=== PATIENT | male | born 1960 | race Caucasian/White ===

== ENCOUNTER 2021-11-22 12:03 | Inpatient (IN) | payer MEDICARE, OTHER, SELFPAY ==
[2021-11-22] VITALS (20 sets, daily range): BP systolic 88–123; BP diastolic 64–108; PULSE 78–126; RESP 17–25; TEMP 36.7–37.1; O2SAT 95–99
--- NOTE | ~2021-11-22 | US_ITS ---
US renal BI, US abdomen limited EXAMINATION: Limited abdomen and renal ultrasound INDICATION: Acute renal injury. Rule out hydronephrosis. PROCEDURE: Realtime High Resolution abdomen and renal ultrasound. COMPARISON: Ultrasound dated 04/25/2016 FINDINGS: Gallbladder is surgically absent. Common bile duct measures 6 mm. Liver echotexture within normal limits without focal mass. Pancreas is not well visualized. Pancrea tic tail is obscured by bowel gas. Spleen is unremarkeable. Renal echotexture is within normal limit s bilaterally without hydronephrosis, contour deforming mass or renal stone. Right kidney measures 12 .7 cm. Left kidney measures 12.5 cm. IMPRESSION: 1: Unremarkable abdominal ultrasound. Reviewed, dictated and finalized at location B. OAT SPRAYER IMPRESSION: 1: Unremarkable abdominal ultrasound.
--- NOTE | ~2021-11-22 | XR_ITS ---
XR chest 1V portable 11/24/2021 10:16 Indication: CHF follow-up Procedure: AP portable chest Comparison: Comparison to multiple prior studies sequentially, with oldest reviewed study dated 06/19. Findings: Status post median sternotomy for CABG. Cardiomegaly. Pacemaker lead position unchanged. Mi ld interstitial edema most likely versus pneumonia. Impression: 1: Cardiomegaly with probable mild interstitial edema. Pneumonia less favored. Reviewed, dictated and finalized at location A. WOOD CUTTER Impression: 1: Cardiomegaly with probable mild interstitial edema. Pneumonia less favored.
--- NOTE | ~2021-11-22 | CT_ITS ---
EXAMINATION: CT chest abdomen pelvis w con DATE: 11/23/2021 17:15 INDICATION: Abdominal pain and distention, hypotension and diaphoresis TECHNIQUE: Computed tomography (CT) of the chest, abdomen, and pelvis was performed with 100 mL Omnip aque-350 intravenous contrast. Automated exposure control and iterative reconstruction technique were employed. The dose-length product was 1986.17 mGy-cm. COMPARISON: CT chest dated 11/22/[address] abdomen and pelvis dated 05/21/2016 FINDINGS: CHEST CT: Moderate emphysema. Small right pleural effusion with dependent compressive atelectasis in the right lower lobe. Decrease in now minimal septal line thickening in the dependent right lower lobe consiste nt with improvement in now minimal residual pulmonary edema. A few scattered small calcified pulmonar y nodules and calcified left hilar and mediastinal lymph nodes consistent with old granulomatous dise ase. Heart size is normal. Atherosclerotic coronary artery disease with postoperative change of prior median sternotomy and coronary artery bypass grafting. Thoracic aorta is normal in caliber with no d issection. Bones are unremarkable. AICD along the lateral left chest wall with lead extending cephala d in the subcutaneous tissues along the left side of the sternum. ABDOMEN/PELVIS CT: Cholecystectomy clips the gallbladder fossa. Diffuse hepatic steatosis. Small amount of pneumobilia i n the left hepatic lobe and common bile duct with biliary stent at the distal common bile duct. Mild portacaval, periportal and peripancreatic lymphadenopathy with more ill-defined soft tissue density m edial to the left adrenal gland were previous there was bulky lymphadenopathy in the subcutaneous sof t tissue density 2016 consistent with likely treated metastatic disease or more likely lymphoma. Iain elate with clinical history. Comparison with any intervening outside imaging would be helpful to asse ss for any more recent interval change. There is mild haziness to the fat surrounding the duodenum wh ich could be due to duodenitis an infectious or related to peptic ulcer disease or edema related to a cute interstitial pancreatitis. Spleen and bilateral adrenal glands are normal. Kidneys appear normal with symmetric enhancement. Relatively symmetric bilateral perinephric and retroperitoneal stranding which extends into the pelvis. There is additional mild haziness to the fat surrounding the decompre ssed bladder which limits evaluation but which raises some concern for cystitis. There is prominent c olonic diverticulosis with a sigmoid predominance. There is no adjacent inflammatory change to sugges t diverticulitis. Appendix is no longer visualized and are postoperative changes along the tip the ce cum suggesting interval appendectomy. No bowel obstruction. Trace amount of perihepatic ascites. No a bscess or free intraperitoneal gas. No pathologically enlarged pelvic lymphadenopathy. Mild scattered degenerative skeletal changes. No suspicious lytic or blastic bone lesions identified. IMPRESSION: 1. Interval decrease in now minimal interstitial opacities in the dependent right lower lobe most lik duke improving mild pulmonary edema. 2. Unchanged small right pleural effusion. 3. Moderate emphysema. 4. Nonspecific stranding in the region of the duodenum/head of the pancreas with differential includi ng either duodenitis which could be infectious, inflammatory or secondary to peptic ulcer disease or acute interstitial pancreatitis and would correlate with amylase and lipase levels. Alternatively thi s along with mild peripancreatic, periportal and portacaval lymphadenopathy where there was previousl y bulky lymphadenopathy could represent residual changes of treated metastatic disease or lymphoma. C orrelate with clinical history. In the absence of any intervening imaging to establish a posttreatmen t baseline it is difficult to exclude recurrent dise
--- NOTE | ~2021-11-22 | XR_ITS ---
EXAMINATION: XR chest 1V portable DATE: 11/30/2021 05:53 INDICATION: Pulmonary edema. TECHNIQUE: A single frontal view of the chest was obtained. COMPARISON: Chest single view 11/28/2021, chest CT 11/23/2021 FINDINGS: There is a diffuse interstitial pattern in the lungs, consistent with mild pulmonary edema. No pleural effusion or pneumothorax. Cardiomegaly is noted. Median sternotomy wires and mediastinal surgical clips are seen, likely from prior coronary artery bypass grafting. There is an implanted def ibrillator in anterior abdominal wall. A left upper extremity peripherally inserted central venous ca theter (PICC) is seen with tip in the superior vena cava. IMPRESSION: 1. Mild pulmonary edema. 2. Cardiomegaly. Reviewed, dictated and finalized at location A. H POLISHER
--- NOTE | ~2021-11-22 | XR_ITS ---
EXAMINATION: XR abdomen obstructive series DATE: 11/28/2021 09:05 INDICATION: Abdominal distention TECHNIQUE: Upright and supine views of the abdomen were obtained. COMPARISON: None. FINDINGS: No dilated loops of bowel are identified. There is no free intraperitoneal gas. Surgical cl ips in the right upper quadrant are likely from prior cholecystectomy. Cardiomegaly is noted. There i s an implanted single living defibrillator of the left lower chest wall. IMPRESSION: 1. Nonobstructive bowel gas pattern. Reviewed, dictated and finalized at location A. PRESIDENT FOR INSTRUCTION
--- NOTE | ~2021-11-22 | XR_ITS ---
EXAMINATION: XR chest PICC line DATE: 11/24/2021 11:55 INDICATION: PICC line placement TECHNIQUE: frontal view of the chest was obtained. COMPARISON: Chest radiograph dated 11/24/[address] dated 11/23/2021 FINDINGS: Left upper extremity peripherally inserted central venous catheter (PICC) tip at the mid superior ve na cava. AICD projecting over the lateral left chest wall with lead extending cephalad along the left side of the sternum. Persistent mild opacities at the bilateral lung bases. No pleural effusion or pneumothorax. Cardiomeg alis. Median sternotomy wires and mediastinal surgical clips are seen, likely from prior coronary tammy ry bypass grafting. IMPRESSION: 1. Left PICC line tip at the midsuperior vena cava. 2. Mild bibasilar opacities which could represent atelectasis, mild pulmonary edema or less likely pn eumonia. 3. Cardiomegaly. Reviewed, dictated and finalized at location A. RUCTOR BUSINESS EDUCATION IMPRESSION: 1. Left PICC line tip at the midsuperior vena cava. 2. Mild bibasilar opacities which could represent atelectasis, mild pulmonary e kip or less likely pneumonia. 3. Cardiomegaly.
--- NOTE | ~2021-11-22 | CT_ITS ---
EXAMINATION: CTA chest PE protocol DATE: 11/22/2021 13:43 INDICATION: Shortness of breath, atrial fibrillation TECHNIQUE: Computed tomography angiography (CTA) of the chest was performed with 100 mL Omnipaque-350 intravenous contrast timed to evaluate the pulmonary arteries. Coronal maximum intensity projection 3D-reconstructions were created by the technologist. The dose-length product (DLP) was 1082.99 mGy-cm . Automated exposure control and iterative reconstruction technique were employed. COMPARISON: None. FINDINGS: The pulmonary arteries are well-opacified. No pulmonary embolism is identified. Respiratory motion artifact somewhat limits the examination. Cardiomegaly is noted. There is a small right pleur al effusion. There are patchy airspace opacities throughout the lungs. There is interlobular septal t hickening in the lower lung zones. No pneumothorax is identified. There is mild bilateral hilar lymph adenopathy. The gallbladder is surgically absent. Pneumobilia is noted. There is a stent the distal c ommon bile duct. There is mild thoracic spondylosis. A single lead defibrillator is implanted in the subcutaneous tissues of the left flank with its leads coursing anteriorly and ending in the subcutane ous tissues of the anterior chest just left of midline. IMPRESSION: 1. No pulmonary embolus identified, sensitivity limited by motion artifact. 2. Cardiomegaly with mild pulmonary edema. 3. Patchy airspace opacities of the lungs, likely atelectasis. 4. Small right pleural effusion. Reviewed, dictated and finalized at location A. ER INSTALLER
--- NOTE | ~2021-11-22 | XR_ITS ---
EXAMINATION: XR chest 1V portable INDICATION: Shortness of breath TECHNIQUE: Portable AP chest at 1222 hours COMPARISON: 05/21/2016 FINDINGS: There are patchy airspace opacities throughout all lung zones. There is no pleural effusion or pneumothorax. Cardiomegaly is noted. A single lead pacemaker has been inserted in the left latera l chest wall since the comparison examination. Median sternotomy wires and mediastinal surgical clips are seen, likely from prior coronary artery bypass grafting. IMPRESSION: 1. Patchy opacities throughout all lung zones, consistent with atelectasis versus pulmonary edema paty devin pneumonia. 2. Cardiomegaly. Reviewed, dictated and finalized at location A. OWS SECURITY ENGINEER IMPRESSION: 1. Patchy opacities throughout all lung zones, consistent with atelectasis vers us pulmonary edema versus pneumonia. 2. Cardiomegaly.
--- NOTE | ~2021-11-22 | XR_ITS ---
EXAMINATION: XR chest 1V portable EXAM DATE: 11/28/2021 19:06 INDICATION: Shortness of breath. TECHNIQUE: Portable AP frontal chest x-ray was obtained. Comparison is made to prior examination from 11/24/2021. FINDINGS: Left-sided PICC line in position. Cardiomegaly. Mild to moderate amount of bilateral ill-de fined edema or pneumonia. No sizable pleural effusion. No pneumothorax. Sternotomy wires. Cardiac pac emaker/AICD device. IMPRESSION: 1. Mild to moderate amount of bilateral edema or pneumonia, mild progression. 2. Cardiomegaly. Reviewed, dictated and finalized at location G. Y REMOVER
--- NOTE | 2021-11-22 12:05 | ECG_ITS ---
Measurements Intervals [facility] [place] Rate: 125 P: SC: 0 QRS: -56 QRSD: 126 T: 192 QT: 357 QTc: 515 Interpretive Statements ATRIAL FLUTTER/TACHYCARDIA WITH RAPID VENTRICULAR RESPONSE IVCD, FEATURES OF BOTH IRBBB/ILBBB LEFT ANTERIOR FASCICULAR BLOCK BORDERLINE ST-T WAVE ABNORMALITY- LAT/HIGH LAT LEADS ABNORMAL ECG Electronically Signed On 11-22-2021 12:29:32 TOLL COLLECTOR SUPERVISOR by Elmo Khoury D.O.
--- NOTE | 2021-11-22 12:23 | ED.ARRPALP ---
HPI - Arrhythmia/Palpitations General Chief Complaint: Arrhythmia/Palpitations Stated Complaint: afib/ from pcp Time Seen by Provider: 11/22/21 12:12 History of Present Illness HPI narrative: 61-year-old male presented to the emergency department for evaluation of atrial fibrillation. Patient does have a previous history of atrial fibrillation but was found to be in A. fib today. Patient reports he has felt poorly for approximately the last 5 weeks with his symptoms being chest congestion and head cold. Patient was being treated by his primary care physician for this. states over the last few days patient has continued to worsen. Patient describes his worsening symptoms as worsening exertional shortness of breath. Denies any chest pain. Prior history of ablation for his A. fib Related Data Home Medications Medication Instructions Recorded Confirmed albuterol sulfate 1 puff INHALATION Q6H 11/22/21 apixaban [Eliquis] 5 mg PO BID 11/22/21 canagliflozin [Invokana] 300 mg PO DAILY 11/22/21 carvedilol 18.75 mg PO BID 11/22/21 fenofibrate 160 mg PO DAILY 11/22/21 furosemide 20 mg PO DAILY 11/22/21 glimepiride 4 mg PO BID 11/22/21 insulin glargine U-300 conc 43 unit SUBCUT HS 11/22/21 [Toujeo SoloStar U-300 Insulin] metformin 1,000 mg PO BID 11/22/21 omeprazole 40 mg PO DAILY 11/22/21 potassium chloride 10 meq PO BID 11/22/21 pravastatin 40 mg PO DAILY 11/22/21 sacubitril-valsartan [Entresto] 1 tablet PO BID 11/22/21 Allergies Allergy/AdvReac Type Severity Reaction Status Date / Time ondansetron Allergy Severe Other Verified 12/20/19 09:30 Review of Systems Review of Systems: CONSTITUTIONAL: Denies fever, chills, or sweats. Worsening generalized fatigue and exertional shortness of breath EYES: Denies visual changes, redness, or discharge. ENT: Denies rhinorrhea, congestion, sore throat, or otalgia. CARDIOVASCULAR: Denies chest pain but does report rapid heart rate RESPIRATORY: Denies cough or dyspnea. GASTROINTESTINAL: Denies abdominal pain, nausea, vomiting, or diarrhea. GENITOURINARY: Denies dysuria or hematuria. SKIN: Denies rash or itching. MUSCULOSKELETAL: Denies back pain, joint pain, or myalgia. NEUROLOGIC: Denies headache, numbness, or weakness. [facility] Family History Family History Sibling Diabetes mellitus Cerebrovascular accident Family history of malignant neoplasm Father Family history of alcoholism Family history of primary malignant neoplasm of liver Social History Social History (System 12/20/19 @ 09:30 by Josie Riley) Smoking status: Former smoker Smoking end date: 10/06/08 Alcohol intake: current Exam Narrative: APPEARANCE: Well appearing, no pain, no distress, well-nourished. HEAD: normocephalic, atraumatic. EYES: PERRLA/EOMI, conjunctivae clear. NECK: Supple. No adenopathy, no masses. RESPIRATORY: Airway patent, respirations nonlabored. Clear to auscultation bilaterally, no rales, rhonchi, wheezing. CARDIOVASCULAR: Regular rate and rhythm without murmurs rubs or gallops. ABDOMINAL: Soft, nontender, nondistended, normal bowel sounds MUSCULOSKELETAL: Moves all extremities. Strength/ROM intact, No edema, No calf tenderness. NEURO: Alert. Cranial nerves II through XII intact. SKIN: Warm, dry. Normal Color PSYCHIATRIC: Normal affect/mood. Course Course Emergency Course: Upon arrival to the emerge department patient's heart rate was 125. Patient's blood pressure was in the 90s systolic. Patient was treated with 5 metoprolol due to the low blood pressure. Patient's rate was improved but patient still remained in A. fib. Patient did have an improvement of his blood pressures. Patient did have a significantly elevated BNP so he was treated with Lasix. Chest x-ray showed pulmonary edema. CT was ordered to rule out pulmonary embolism and confirmed pulmonary edema rather than pneumonia. Case was di
[2021-11-22] MEDS: SODIUM CHLORIDE 0.9% IV 500 ML 999 ML IV CONT (12:41)
[2021-11-22] MEDS: METOPROLOL TARTRATE INJ 5 MG/5 ML VIAL IV PUSH (12:42)
[2021-11-22 12:52] LABS: Basophils Absolute Auto 0.1 K/mm3 (0.0-0.1); Basophils Percent Auto 1.5 % (0.2-1.2); Eosinophils Absolute Auto 0.3 K/mm3 (0-0.3); Eosinophils Percent Auto 3.8 % (0-4.4); Hematocrit 51.9 % (42.0-52.0); Hemoglobin 15.4 g/dL (14.0-18.0); Immature Granulocyte Absolute 0.01 K/mm3 (0.00-0.031); Immature Granulocyte Percent A 0.1 % (0-0.5); Lymphocytes Absolute Auto 1.72 K/mm3 (0.9-3.2); Lymphocytes Percent Auto 23.6 % (18.3-44.2); Mean Corpuscular HGB Conc 29.7 g/dl (32-36); Mean Corpuscular Hemoglobin 21.9 pg (26-34); Mean Corpuscular Volume 73.8 fl (80-100); Mean Platelet Volume 9.1 fl (7.4-10.4); Monocytes Absolute Auto 0.7 K/mm3 (0.1-0.6); Monocytes Percent Auto 8.9 % (2.6-8.5); Neutrophils Absolute Auto 4.5 K/mm3 (1.3-6.7); Neutrophils Percent Auto 62.1 % (45.5-73.1); Platelet Count Result 292 k/mm3 (150-375); Red Blood Count 7.03 M/mm3 (4.6-6.20); Red Cell Distribution Width 20.5 % (11.5-14.5); White Blood Count 7.3 K/mm3 (4.5-10.0)
[2021-11-22 12:56] LABS: Add Urine Microscopic? YES; Appearance Urine Clear (Clear); Bilirubin Urine Negative (Negative); Blood Urine Negative (Negative); Color Urine Straw (Yellow); Glucose Urine UA 3+ mg/dL (Negative); Ketones Urine Negative (Negative); Leukocyte Esterase Ur Negative LEU/UL (Negative); Mucus Urine Rare /lpf; Nitrate Urine Negative (Negative); Protein Urine 1+ mg/dL (Negative); RBC Urine 0-2 /hpf (0-2); Specific Grav Ur 1.009 (1.001-1.035); Urobilinogen Urine Negative mg/dL (<2.0); WBC Urine 0-3 /hpf
[2021-11-22 13:06] LABS: Partial Thromboplastin Time 32.4 SECONDS (22.3-36.8)
[2021-11-22 13:08] LABS: Alanine Aminotransferase 25 U/L (4-50); Albumin Level 4.6 g/dL (3.5-5.1); Alkaline Phosphatase 39 U/L (38-126); Anion Gap 15 mmol/L (8-16); Aspartate Amino Transferase 23 U/L (17-59); Blood Urea Nitrogen 28 mg/dL (9-20); Carbon Dioxide 22 mmol/L (22-30); Chloride 102 mmol/L (98-107); Estimated CRCL calculation 63 ml/min; Estimated Glomerular Filt Rate 51; Potassium 4.4 mmol/L (3.4-5.0); Sodium 139 mmol/L (137-145)
[2021-11-22 13:12] LABS: INR 1.4; Prothrombin Time 16.2 Seconds (11.1-14.7)
[2021-11-22 13:17] LABS: NT Pro B Type Natriuretic Pept 6460 pg/mL (5-100); Troponin I < 0.012 ng/mL (0.000-0.034)
[2021-11-22] MEDS: FUROSEMIDE INJ 40 MG/4 ML VIAL IV PUSH ×2 (13:43→20:40)
--- NOTE | 2021-11-22 13:52 | ECG_ITS ---
Measurements Intervals [place] Rate: 89 P: AL: 0 QRS: -51 QRSD: 129 T: 205 QT: 407 QTc: 498 Interpretive Statements ATRIAL FLUTTER/TACHYCARDIA RIGHT BUNDLE BRANCH BLOCK LEFT ANTERIOR FASCICULAR BLOCK ABNORMAL ECG Electronically Signed On 11-22-2021 15:00:51 SOD STRIPPER by Elmo Khoury D.O.
[2021-11-22 14:09] LABS: Calcium 9.5 mg/dL (8.4-10.2); Glucose 109 mg/dL (65-110)
[2021-11-22 14:28] LABS: SARS-CoV-2 RNA PCR Negative
--- NOTE | 2021-11-22 14:39 | PC.NURSE ---
Patient stated that he was not feeling well and felt like his blood sugar was low . He was cool and clammy. POC blood glucose obtained with a result of 72. Patient given two cups of orange juice.
[2021-11-22 14:43] LABS: Glucose Point of Care 72 mg/dl (65-105)
[2021-11-22 16:04] LABS: Troponin I < 0.012 ng/mL (0.000-0.034)
--- NOTE | 2021-11-22 16:52 | PC.NURSE ---
This patient, Ronal Spears, was admitted to [facility]. Recieved report from ED RN. Patient/family oriented to hospital policies and general routines including ID bracelet, bed and alarms, visiting hours, pain management, procedures, bathroom and other care routines, personal items, smoking policy, room service/diet, and visiting hours. Information on how to activate the Rapid Response Team has been discussed. Patient/Family are encouraged to report perceived risks to care and to ask questions if they do not understand what they are told or what they should do.
[2021-11-22 16:54] LABS: Glucose Point of Care 107 mg/dl (65-105)
[2021-11-22 19:01] LABS: Troponin I < 0.012 ng/mL (0.000-0.034)
[2021-11-22 21:06] LABS: Glucose Point of Care 107 mg/dl (65-105)
--- NOTE | 2021-11-22 21:14 | PM.IMHP ---
H&P: HPI History of Present Illness Date/Time: 11/22/21 21:14 Chief Complaint: Shortness of breath Narrative: This is a 61-year-old male with past medical history significant for atrial fibrillation, anticoagulated rate controlled, type 2 diabetes mellitus, dyslipidemia, systolic congestive heart failure, coronary artery disease status post coronary artery bypass graft in 2007 due to LAD disease, ventricular tachycardia arrest AICD in place, patient also was diagnosed 3 years ago with cancer and has a stent placed in the bile duct that has been exchanged several times. Patient presents to the emergency room with complaints of shortness of breath overall not feeling well for the last month or so was having symptoms of cold and was treated for these however did not improve and decided to come today to visit his primary care physician and patient could not walk from the parking lot due to extreme shortness of breath, patient denies any chest pain, palpitations, PND, orthopnea, leg swelling, abdominal pain, nausea vomiting or diarrhea, he has been feeling dizzy. In emergency room patient was found to have atrial fibrillation overall preliminary workup has been essentially nonrevealing creatinine was 1.4. Brain natriuretic peptide was above 6000. Patient is been admitted for further evaluation, management and treatment. Review of Systems Review of Systems: Shortness of breath, decreased stamina, fatigue, dizziness. Constitutional: Constitutional: Denies chills, Reports fatigue, Denies fever(s), Reports lethargy, Denies malaise, Denies night sweats and Denies weakness Eyes: Eyes: Denies change in vision ENT: Denies dysphagia, Denies vertigo, Reports dizziness, Denies nasal congestion, Denies nasal discharge, Denies nasal obstruction and Denies odynophagia Cardiovascular: Cardiovascular: Denies chest pain, Denies pedal edema, Denies irregular heart rhythm, Denies claudication, Denies leg edema, Reports lightheadedness, Denies radiating jaw, neck or arm pain, Denies palpitations, Reports dyspnea, Reports dyspnea on exertion and Reports orthopnea Respiratory: Respiratory: Denies cough Gastrointestinal: Gastrointestinal: Denies abdominal pain, Denies dyspepsia, Denies heartburn, Denies diarrhea, Denies nausea and Denies vomiting Genitourinary: Genitourinary: Denies dysuria Musculoskeletal: Musculoskeletal: Denies arthralgias and Denies joint swelling Integumentary/Breasts: Skin/Breast: Denies rash Neurologic: Denies focal weakness and Denies Sensory deficit (Neuro) Psychiatric: Psychiatric: Reports no additional psychiatric complaints and Reports as per HPI Endocrine: Endocrine: Reports no additional endocrine complaints and Reports as per HPI Hematologic/Lymphatic: Hematologic/Lymphatic: Reports no additional hematologic/lymphatic complaints and Reports as per HPI Allergic/Immunologic: Allergic/Immunologic: Reports no additional allergic/immunologic complaints and Reports as per HPI [facility] Family History Family History Sibling Diabetes mellitus Cerebrovascular accident Family history of malignant neoplasm Father Family history of alcoholism Family history of primary malignant neoplasm of liver Social History Social History (System 12/20/19 @ 09:30 by Josie Riley) Smoking status: Former smoker Smoking end date: 10/06/08 Alcohol intake: current Meds Home Medications and Allergies Home Medications Medication Instructions Recorded Confirmed Type albuterol sulfate 1 puff INHALATION Q6H 11/22/21 11/22/21 History apixaban [Eliquis] 5 mg PO BID 11/22/21 11/22/21 History canagliflozin [Invokana] 300 mg PO DAILY 11/22/21 11/22/21 History carvedilol 18.75 mg PO BID 11/22/21 11/22/21 History fenofibrate 160 mg PO DAILY 11/22/21 11/22/21 History furosemide 20 mg PO BID 11/22/21 11/22/21 History glimepiride 4 mg PO BID 11/22/21 History insulin glargine U-300 conc
[2021-11-22] MEDS: SACUBITRIL/VALSARTAN 49-51 MG TABLET 1 TABLET PO (22:44)
[2021-11-22] MEDS: carvediloL 12.5 MG TABLET PO (22:44)
[2021-11-22] MEDS: carvediloL 6.25 MG TABLET PO (22:44)
[2021-11-22] MEDS: APIXABAN 5 MG TABLET PO (22:45)
[2021-11-22 23:38] LABS: Glucose Point of Care 73 mg/dl (65-105)
[2021-11-23] VITALS (24 sets, daily range): BP systolic 71–106; BP diastolic 55–78; PULSE 72–130; RESP 14–22; TEMP 36.2–36.8; O2SAT 90–97
--- NOTE | 2021-11-23 | ECHO_ITS ---
Patient Info Name: Ronal Spears Age: 61 years : 1960 Gender: Male Ht: 73 in Wt: 234 lbs BSA: 2.36 m2 HR: 77 bpm BP: 94 / 56 mmHg Heart Rhythm: Atrial Flutter Technical Quality: Fair Exam Date: 11/23/2021 7:27 AM Exam Location: [facility] Patient Status: Inpatient Admit Date: 11/22/2021 Staff Ordering Physician: Garfield Clemente MD Outreach Clinician: Jyoti Son RDCS Attending Provider: Teofilo Garnett MD Referring Physician: Bryn ELISE; Exam Type: CA echo dop color flow w con Study Info Indications - sob Complete two-dimensional, color flow and Doppler transthoracic echocardiogram is performed. Summary 1. Complete two-dimensional, color flow and Doppler transthoracic echocardiogram is performed. 2. Left ventricular chamber dimension is mildly enlarged. 3. Left ventricular systolic function is moderately reduced, estimated at 30-35% with severe hypokinesis of the apex, anteroseptal, and anterior burnham.. 4. There is no increased left ventricular wall thickness. 5. Left ventricular septal wall motion is abnormal with septal motion related to bundle branch block. 6. The left ventricular diastolic function is indeterminate. 7. There is no thrombus visualized in the left ventricle seen with definity contrast enhancement. 8. Echogenic structure located near the RV apex most likely calcified moderator band. 9. Right ventricular chamber dimension is moderately enlarged. 10. Right ventricular systolic function is reduced. 11. There is mild tricuspid valve regurgitation. 12. Mild pulmonary hypertension, estimated pulmonary arterial systolic pressure is 41 mmHg. 13. There is mild aortic valve stenosis with a peak velocity of 145.06 cm/s, mean gradient of 2 mmHg, and aortic valve area of 1.40 cm2. Left Ventricle Left ventricular chamber dimension is mildly enlarged. Left ventricular systolic function is moderately reduced, estimated at 30-35% with severe hypokinesis of the apex, anteroseptal, and anterior burnham.. There is no increased left ventricular wall thickness. Left ventricular septal wall motion is abnormal with septal motion related to bundle branch block. The left ventricular diastolic function is indeterminate. There is no thrombus visualized in the left ventricle seen with definity contrast enhancement. Right Ventricle Right ventricular chamber dimension is moderately enlarged. Right ventricular systolic function is reduced. Echogenic structure located near the RV apex most likely calcified moderator band. Left Atria Left atrial chamber dimension is moderately enlarged. Right Atria Right atrial chamber dimension is moderately enlarged. Aortic Valve The aortic valve is not well visualized. There is mild aortic valve stenosis with a peak velocity of 145.06 cm/s, mean gradient of 2 mmHg, and aortic valve area of 1.40 cm2. There is no aortic valve regurgitation. There is mild aortic valve calcification. Pulmonic Valve The pulmonic valve is not well visualized. There is trace pulmonic regurgitation. Mitral Valve The mitral valve has normal leaflets. There is mild mitral valve regurgitation. There is mild mitral valve calcification. Tricuspid Valve The tricuspid valve leaflets are normal. There is mild tricuspid valve regurgitation. Mild pulmonary hypertension, estimated pulmonary arterial systolic pressure is 41 mmHg. Pericardium/Pleural The pericardium appears normal. There is no pericardial effusion. Inferior
--- NOTE | 2021-11-23 00:45 | PC.NURSE ---
23:38 Patient's BS getting low, and patient comlaining of diaphoresis. Patient given juice, and bedtime snack. Will continue to monitor.
[2021-11-23] MEDS: ALBUTEROL SULFATE (*SP) AEROSOL 1 PUFF INHALATION ×4 (03:35→20:29)
[2021-11-23] MEDS: PERFLUTREN LIPID MICROSPHERES 1.5 ML VIAL DILUTED TO 10 ML TOTAL VOLUME IV PUSH (08:19)
--- NOTE | 2021-11-23 08:19 | IVDEFINITY ---
Prior to administration of IV Definity the patient was educated on the risks and benefits of the imaging enhancing agent including potential adverse side effects. The patient verbalized understanding. Allergies were verified. No exclusion criteria were identified and at least one of the following inclusion criteria were met: 1) physician request, 2) patient technically difficult to image (per the [place] [employer] guidelines of two or more segments not discernable within the apical view), or 3) questionable left ventricular function. ?
[2021-11-23] MEDS: carvediloL 6.25 MG TABLET PO (08:46)
[2021-11-23] MEDS: SACUBITRIL/VALSARTAN 49-51 MG TABLET 1 TABLET PO (08:47)
[2021-11-23] MEDS: carvediloL 12.5 MG TABLET PO (08:47)
[2021-11-23] MEDS: PRAVASTATIN SODIUM 20 MG TABLET 40 MG PO (08:48)
[2021-11-23] MEDS: FENOFIBRATE 160 MG TABLET PO (08:48)
[2021-11-23] MEDS: APIXABAN 5 MG TABLET PO ×2 (08:48→20:08)
[2021-11-23] MEDS: POTASSIUM CHLORIDE 10 MEQ TABLET.ER PO (08:48)
[2021-11-23] MEDS: FUROSEMIDE INJ 40 MG/4 ML VIAL IV PUSH (08:49)
[2021-11-23] MEDS: PANTOPRAZOLE 40 MG TABLET PO ×2 (08:49→20:08)
[2021-11-23 08:52] LABS: Glucose Point of Care 99 mg/dl (65-105)
--- NOTE | 2021-11-23 09:21 | PM.CNCAR ---
Assessment and Plan Additional Plan This is a 61-year-old man with well described and outlined ischemic cardiomyopathy as mentioned above. He is symptomaticaly decompensated I believe because of the development of sustained atrial flutter. He will be continued on his appropriate heart failure regimen and I am going to start him on amiodarone intravenously an attempt at restoring sinus rhythm. The patient hopefully will convert to sinus rhythm with amiodarone if he does not I will consider electrical cardioversion early next week. The patient has need for chronic biliary stents because of a bile duct stenosis. A he happens to have a procedure scheduled as an outpatient to have this evaluated and potentially replaced next week at [facility]. Obviously that will have to get delayed since that procedure requires interruption of anticoagulation. I will notify and discuss this situation with his coutierier at [facility] as well. Roberto Carlos Washington MD [facility] History of Present Illness History of Present Illness Consult date/time: Date of service: 11/23/21 09:21 Reason For Visit: a fib with rvr,chf Narrative: This is a pleasant 61-year-old man who I see in the office because of coronary disease and a significant ischemic cardiomyopathy. He was hospitalized after being seen in my office yesterday by the nurse practitioner because of atrial flutter/RVR and hypotension. The patient says that he has been feeling poorly with significant worsening in his baseline FOURNIER and severe weakness with only modest activity for the last 5-7 days. When he was seen in the office yesterday he was feeling poorly his blood pressure was about 80 systolic and he was extremely weak and a bit diaphoretic in appearance. He was seen in the emergency room and admitted to the hospital for further evaluation and care. He does not have any other complaints this morning. The patient has a history of coronary artery disease for many years. He was hospitalized at [place] and became my patient I believe back in about 2018 when he experienced a discharge from his defibrillator. He was brought to the cardiac cathode builder for evaluation of his coronary disease in October of 2017. He was found to have total proximal occlusion of the LAD as well as of the circumflex after 1 very small marginal branch. The vein graft to his circumflex was nicely patent as was the DEL ANGEL graft to his LAD. His right coronary artery was not significantly diseased and his ejection fraction was about 30%. He was treated medically and did relatively well. He did see his coutierier, Dr. Vaughn at the [facility] lab where he underwent a VT ablation and following that had received any shocks. Before that he was receiving sotalol for antiarrhythmic therapy. I saw the patient myself in August of 2021 at which time he had some mild chronic FOURNIER but no other new symptoms or concerns. His electrocardiogram now shows typical atrial flutter. When he was admitted he was conducting two-to-one with slowing of his AV node 1 can clearly see typical flutter waves. Explained to the patient that high likelihood that persistent atrial flutter is the reason for his symptomatic decompensation in the recent days. He is on a very good heart failure regimen including carvedilol, 18.75 mg twice daily, Entresto 49/51 as well as furosemide. He remains systemically anticoagulated with apixaban. Review of Systems Constitutional: Constitutional: Reports lethargy and Reports weakness Eyes: Eyes: Reports no additional eye complaints ENT: Reports system reviewed and no additional complaints, except as documented Cardiovascular: Cardiovascular: Reports as per HPI Respiratory: Respiratory: Reports dyspnea on exertion Gastrointestinal: Gastrointestinal: Reports no additional gastrointestinal complaints Genitourinary: Genitourinary: Reports no additional male genitourinary complaints Musculoskeletal: Musculoskeletal: Reports no additio
[2021-11-23] MEDS: AMIODARONE 360 MG/D5W 200 ML 360 MG/200 ML BAG 33.33 MG IV CONT (09:35)
[2021-11-23] MEDS: AMIODARONE 150 MG/D5W 100 ML 150 MG/100 ML BAG 600 MG IV CONT (09:36)
[2021-11-23 10:08] LABS: Hematocrit 49.2 % (42.0-52.0); Hemoglobin 14.5 g/dL (14.0-18.0); Mean Corpuscular HGB Conc 29.5 g/dl (32-36); Mean Corpuscular Hemoglobin 21.5 pg (26-34); Mean Platelet Volume 8.9 fl (7.4-10.4); Platelet Count Result 326 k/mm3 (150-375); Red Blood Count 6.74 M/mm3 (4.6-6.20); Red Cell Distribution Width 20.2 % (11.5-14.5); White Blood Count 6.3 K/mm3 (4.5-10.0)
[2021-11-23 10:20] LABS: Hemoglobin A1C 7.7 % (<5.7)
[2021-11-23 10:22] LABS: Anion Gap 12 mmol/L (8-16); Blood Urea Nitrogen 27 mg/dL (9-20); Calcium 8.7 mg/dL (8.4-10.2); Carbon Dioxide 23 mmol/L (22-30); Chloride 100 mmol/L (98-107); Estimated CRCL calculation 67 ml/min; Estimated Glomerular Filt Rate 56; Glucose 271 mg/dL (65-110); Magnesium 2.1 mg/dL (1.6-2.3); Potassium 4.1 mmol/L (3.4-5.0); Sodium 135 mmol/L (137-145)
[2021-11-23 10:41] LABS: Iron 48 ug/dL (49-181)
[2021-11-23 10:51] LABS: Percent Iron Saturation 10 % (20-50)
[2021-11-23 12:06] LABS: Glucose Point of Care 258 mg/dl (65-105)
--- NOTE | 2021-11-23 13:54 | PM.IMPN ---
Progress Note: A&P Assessment and Plan (1) Systolic heart failure, ACC/AHA stage D: Code(s): I50.20 - Unspecified systolic (congestive) heart failure Status: Acute Assessment and Plan: Acute on chronic systolic congestive Heart failure The patient is a 61-year-old man with a history of CAD status post CABG in 2007, ischemic cardiomyopathy with a defibrillator in place after going into a ventricular tachycardia arrest in 2018, atrial fibrillation in the past status post ablation and on Eliquis, cancer and multiple procedures for biliary duct stent placement and exchanges over the last 5 years and goes to [facility] in currently states he is in remission, who presented to the emergency room from his educational psychologist's office with concerns of hypotension, decompensated systolic congestive heart failure with shortness of breath with exertion and being in atrial fibrillation with rapid ventricular response. Patient states he has had intermittent dyspnea with exertion, orthopnea, abdominal distention and firmness over the last few weeks. He came to his educational psychologist's office for a evaluation as well as cardiac clearance because he supposed to have a biliary stent replaced on Friday. [facility] office was concerned and sent him to the ER for further evaluation. Initial vitals showed low blood pressure 94/79, tachycardic heart rate 126 beats per minute, increased respiratory rate at 21, afebrile, 99% on room air. Initial labs showed normal white blood cell count, normal H&H with a low MCV at 73. Normal differential. Normal INR. Creatinine 1.4, BUN 28, normal LFTs, normal electrolytes, negative troponin x3. Elevated BNP at 6400. Urinalysis shows 1+ protein and 3+ glucose. Negative COVID PCR. Chest x-ray showed Patchy opacities throughout all lung zones, consistent with atelectasis versus pulmonary edema versus pneumonia.Cardiomegaly. CTA Chest was completed showing No pulmonary embolus identified, sensitivity limited by motion artifact. Cardiomegaly with mild pulmonary edema. Patchy airspace opacities of the lungs, likely atelectasis. Small right pleural effusion. He was admitted into the hospital with acute decompensated systolic congestive heart failure, atrial fibrillation with rapid ventricular response and started on IV Lasix and amiodarone drip with a cardiology consultation. Patient was started on a fluid restriction at 1500 cc per day IV Lasix 40 mg b.i.d. Strict intake and output Echocardiogram pending Cardiology was consulted and recommends continuing diuresis Continue monitoring. Appreciate cardiology's input. (2) Atrial fibrillation with RVR: Code(s): I48.91 - Unspecified atrial fibrillation Status: Acute Assessment and Plan: Cardiology believes he is in the sustained atrial flutter at this time. Cardiology recommends continuing IV amiodarone drip. He hopes that amiodarone will convert him back to normal sinus rhythm and if he remains in atrial fibrillation/flutter then they will plan on a cardioversion early next week. Continue monitoring. (3) Coronary artery disease involving autologous artery coronary bypass graft: Code(s): I25.810 - Atherosclerosis of coronary artery bypass graft(s) without angina pectoris Status: Acute Assessment and Plan: Patient had bypass back in 2007 due to a LAD disease Patient has some chest pain prior to hospitalization but has not had any more since then. His troponins were negative x3 on arrival. Continue home meds (4) Type 2 diabetes mellitus: Code(s): E11.9 - Type 2 diabetes mellitus without complications Status: Acute Assessment and Plan: Patient's hemoglobin A1c is 7.7%. Will hold his oral medications at this time and continue his insulin but decrease it from 43 Units HS to 30
[2021-11-23] MEDS: SODIUM CHLORIDE 0.9% IV 500 ML IV CONT (14:36)
[2021-11-23 14:54] LABS: Glucose Point of Care 275 mg/dl (65-105)
[2021-11-23] MEDS: AMIODARONE 360 MG/D5W 200 ML 360 MG/200 ML BAG 16.67 MG IV CONT (15:20)
[2021-11-23 18:13] LABS: Glucose Point of Care 200 mg/dl (65-105)
--- NOTE | 2021-11-23 18:16 | ECG_ITS ---
Measurements Intervals [place] Rate: 96 P: [place]: 0 QRS: -58 QRSD: 122 T: -81 QT: 416 QTc: 527 Interpretive Statements ATRIAL FLUTTER/TACHYCARDIA RIGHT BUNDLE BRANCH BLOCK LEFT ANTERIOR FASCICULAR BLOCK CANNOT RULE OUT SEPTAL INFARCT, AGE INDETERMINATE BASELINE ARTIFACT- I, II, III, AVR, AVL, AVF, V1-V6 ABNORMAL ECG Electronically Signed On 11-23-2021 18:37:47 CARTRIDGE FILLER by Elmo Khoury D.O.
[2021-11-23 18:42] LABS: Hemoglobin 14.5 g/dL (14.0-18.0); Mean Corpuscular HGB Conc 30.2 g/dl (32-36); Mean Corpuscular Hemoglobin 21.9 pg (26-34); Mean Corpuscular Volume 72.6 fl (80-100); Platelet Count Result 313 k/mm3 (150-375); Red Blood Count 6.61 M/mm3 (4.6-6.20); Red Cell Distribution Width 20.3 % (11.5-14.5)
[2021-11-23 19:00] LABS: Alanine Aminotransferase 21 U/L (4-50); Albumin Level 4.3 g/dL (3.5-5.1); Alkaline Phosphatase 37 U/L (38-126); Anion Gap 13 mmol/L (8-16); Aspartate Amino Transferase 23 U/L (17-59); Bilirubin,Total 0.6 mg/dL (0.2-1.3); Blood Urea Nitrogen 34 mg/dL (9-20); Calcium 8.6 mg/dL (8.4-10.2); Carbon Dioxide 23 mmol/L (22-30); Chloride 96 mmol/L (98-107); Estimated CRCL calculation 42 ml/min; Estimated Glomerular Filt Rate 32; Glucose 214 mg/dL (65-110); Potassium 4.9 mmol/L (3.4-5.0); Sodium 132 mmol/L (137-145)
[2021-11-23] MEDS: DOPamine 400 MG/D5W 250 ML 400 MG/250 ML BAG 19.82 MG IV CONT ×2 (19:04)
[2021-11-23] MEDS: INSULIN GLARGINE (*BKC) 100 UNITS/ML 30 UNITS SUB-Q (20:08)
[2021-11-23 20:14] LABS: Glucose Point of Care 207 mg/dl (65-105)
[2021-11-23] MEDS: ACETAMINOPHEN 325 MG TABLET 650 MG PO (22:52)
[2021-11-24] VITALS (24 sets, daily range): BP systolic 85–107; BP diastolic 59–82; PULSE 90–117; RESP 16–24; TEMP 36.3–36.6; O2SAT 91–100
[2021-11-24] MEDS: ALBUTEROL SULFATE (*SP) AEROSOL 1 PUFF INHALATION ×4 (02:37→19:43)
[2021-11-24] MEDS: AMIODARONE 360 MG/D5W 200 ML 360 MG/200 ML BAG 16.67 MG IV CONT ×2 (03:03→13:50)
[2021-11-24 04:20] LABS: Hematocrit 46.7 % (42.0-52.0); Hemoglobin 14.1 g/dL (14.0-18.0); Mean Corpuscular HGB Conc 30.2 g/dl (32-36); Mean Corpuscular Hemoglobin 21.9 pg (26-34); Mean Corpuscular Volume 72.5 fl (80-100); Mean Platelet Volume 8.8 fl (7.4-10.4); Platelet Count Result 275 k/mm3 (150-375); Red Blood Count 6.44 M/mm3 (4.6-6.20); Red Cell Distribution Width 19.9 % (11.5-14.5); White Blood Count 8.7 K/mm3 (4.5-10.0)
[2021-11-24 04:31] LABS: Alanine Aminotransferase 21 U/L (4-50); Albumin Level 4.1 g/dL (3.5-5.1); Alkaline Phosphatase 37 U/L (38-126); Anion Gap 10 mmol/L (8-16); Aspartate Amino Transferase 23 U/L (17-59); Bilirubin,Total 0.7 mg/dL (0.2-1.3); Blood Urea Nitrogen 34 mg/dL (9-20); Calcium 8.6 mg/dL (8.4-10.2); Carbon Dioxide 26 mmol/L (22-30); Chloride 99 mmol/L (98-107); Estimated CRCL calculation 52 ml/min; Estimated Glomerular Filt Rate 41; Glucose 98 mg/dL (65-110); Magnesium 2.2 mg/dL (1.6-2.3); Potassium 3.8 mmol/L (3.4-5.0); Sodium 135 mmol/L (137-145)
[2021-11-24 08:42] LABS: Glucose Point of Care 101 mg/dl (65-105)
[2021-11-24] MEDS: FERROUS SULFATE 324 MG TABLET PO ×2 (08:46→18:25)
[2021-11-24] MEDS: APIXABAN 5 MG TABLET PO ×2 (08:47→21:21)
[2021-11-24] MEDS: FENOFIBRATE 160 MG TABLET PO (08:47)
[2021-11-24] MEDS: PANTOPRAZOLE 40 MG TABLET PO ×2 (08:47→21:21)
[2021-11-24] MEDS: PRAVASTATIN SODIUM 20 MG TABLET 40 MG PO (08:47)
[2021-11-24] MEDS: DOPamine 400 MG/D5W 250 ML 400 MG/250 ML BAG 19.82 MG IV CONT (09:01)
--- NOTE | 2021-11-24 09:11 | PM.PNCARD ---
Progress Note: A&P Assessment and Plan (1) Atrial fibrillation with RVR: Code(s): I48.91 - Unspecified atrial fibrillation Status: Acute Assessment and Plan: Still on amiodarone. Appears to be in atrial fibrillation at this point. EKG now. On anticoagulation. If he does not convert with amiodarone, will need electrical cardioversion. (2) Coronary artery disease involving autologous artery coronary bypass graft: Code(s): I25.810 - Atherosclerosis of coronary artery bypass graft(s) without angina pectoris Status: Acute Assessment and Plan: Continue statin. Carvedilol and Entresto on hold because of hypotension. (3) Systolic heart failure, ACC/AHA stage D: Code(s): I50.20 - Unspecified systolic (congestive) heart failure Status: Acute Assessment and Plan: Acute on chronic systolic heart failure. Decompensated. On dopamine at this point. Resume standard outpatient regimen when able. (4) Hypotension: Code(s): I95.9 - Hypotension, unspecified Status: Acute Assessment and Plan: Continue supportive care with dopamine. BP/CHF regimen on hold Subjective Date/time seen: 11/24/21 09:11 Interval history: This is a pleasant 61-year-old man who sees Dr. Washington in the office because of coronary disease and a significant ischemic cardiomyopathy. He was hospitalized after being seen in my office yesterday by the nurse practitioner because of atrial flutter/RVR and hypotension. Date of service 11/24/2021: Low chest pain. Still short of breath. Feels like his blood sugars is low. Overall still feels poorly on amiodarone and dopamine Review of Systems Review of Systems: All systems reviewed & are unremarkable except as noted in HPI and below Constitutional: Constitutional: Reports lethargy and Reports weakness Eyes: Eyes: Reports no additional eye complaints and Denies blurry vision ENT: Reports system reviewed and no additional complaints, except as documented and Reports Normal hearing present Cardiovascular: Cardiovascular: Reports as per HPI, Denies chest pain and Reports dyspnea on exertion Respiratory: Respiratory: Reports dyspnea on exertion Gastrointestinal: Gastrointestinal: Reports no additional gastrointestinal complaints and Denies abdominal pain Genitourinary: Genitourinary: Reports no additional male genitourinary complaints Musculoskeletal: Musculoskeletal: Reports no additional musculoskeletal complaints Integumentary/Breasts: Skin/Breast: Reports system reviewed and no additional complaints, except as docu Neurologic: Denies headache(s) and Reports weakness Psychiatric: Psychiatric: Denies anxiety Endocrine: Endocrine: Reports no additional endocrine complaints Hematologic/Lymphatic: Hematologic/Lymphatic: Reports no additional hematologic/lymphatic complaints Allergic/Immunologic: Allergic/Immunologic: Reports no additional allergic/immunologic complaints Exam Const: General: comfortable and no acute distress Other: Pleasant gentleman seated in bed in the chest [facility] head of bed elevated about 45? no distress currently HENMT: Mouth: Yes moist mucous membranes Eyes: Sclera: sclerae normal and scleral abnormality Neck: Neck: supple Carotids: bruit Other: No obvious venous distention Resp: Effort & Inspection: normal respiratory effort Other: Breath sounds somewhat diminished at the bases no audible rales rhonchi or wheezing Cardio: Rhythm: abnormal rhythm irregularly irregular GI: Auscultation: normal bowel sounds Skin: General skin exam: normal color Neuro: Cognition (Neuro): normal cognition Extrem: Other: Trivial pretibial edema Objective Data Vital Signs Vital Signs: Vital Signs - 24 hr 11/23/21 09:18 11/23/21 09:31 11/23/21 09:35 Temperature Pulse Rate 130 H 130 H 108 H Respiratory Rate 22 H Blood Pressure 106/72 Pulse Oximetry 11/23/21 09:36 11/23/21 10:00 11/23/21 1
--- NOTE | 2021-11-24 09:18 | ECG_ITS ---
Measurements Intervals [place] Rate: 115 P: [place]: 0 QRS: -50 QRSD: 122 T: 61 QT: 360 QTc: 499 Interpretive Statements ATRIAL FLUTTER/TACHYCARDIA WITH RAPID VENTRICULAR RESPONSE LEFT AXIS DEVIATION LEFT BUNDLE BRANCH BLOCK BASELINE ARTIFACT- I, III, AVR, AVL, AVF ABNORMAL ECG Electronically Signed On 11-24-2021 10:36:54 CONTROL CLERK AUDITING by Elmo Khoury D.O.
--- NOTE | 2021-11-24 09:44 | WPDCNINT ---
Assessment and Plan Assessment and plan (1) Cardiogenic shock: Code(s): R57.0 - Cardiogenic shock Status: Acute Assessment and Plan: patient has severe ischemic cardiomyopathy with LVEF of 30% with severe hypokinesia of apex anterior septal and anterior wall, RV is also dilated, by pulmonary hypertension and mild aortic stenosis. his congestive heart failure got decompensated likely secondary to AFib with RVR continue amiodarone infusion patient appears to have converted to sinus rhythm he is currently on low-dose dopamine for ionotropic and vasopressor affect hold diuretics as patient does not appear to be any significant volume overload check chest x-ray and BNP he is anticoagulated with Eliquis hold Coreg and Entresto due to shock continue statin and fenofibrate obtain PICC line for central venous access patient is on dopamine now and may need to switch to a different vasopressor depending on clinical situation (2) Atrial fibrillation with RVR: Code(s): I48.91 - Unspecified atrial fibrillation Status: Acute (3) Coronary artery disease involving autologous artery coronary bypass graft: Code(s): I25.810 - Atherosclerosis of coronary artery bypass graft(s) without angina pectoris Status: Acute (4) Systolic heart failure, ACC/AHA stage D: Code(s): I50.20 - Unspecified systolic (congestive) heart failure Status: Acute (5) Decompensated heart failure: Code(s): I50.9 - Heart failure, unspecified Status: Acute (6) Type 2 diabetes mellitus: Code(s): E11.9 - Type 2 diabetes mellitus without complications Status: Acute Assessment and Plan: continue sliding scale Lantus and diabetic diet (7) Dyslipidemia: Code(s): E78.5 - Hyperlipidemia, unspecified Status: Acute Assessment and Plan: continue statin and fenofibrate Additional Plan DVT prophylaxis - on Eliquis SUP - On PPI Nutrition - cardiac diet Code Status - Full Code Total Critical Care Time - 32 minutes Due to a high probability of clinically significant, life threatening deterioration, the patient required my highest level of preparedness to intervene emergently and I personally spent this critical care time directly and personally managing the patient. This critical care time included obtaining a history; examining the patient; pulse oximetry; ordering and review of studies; arranging urgent treatment with development of a management plan; evaluation of patient's response to treatment; frequent reassessment; and discussions with other providers. It was exclusive of separately billable procedures and treating other patients and teaching time. Please see Assessment and Plan section and the rest of the note for further information on patient assessment and treatment [employer] And [employer] Inspector Consult Note Consult date: 11/24/21 HPI: Ronal Spears is a 61 year old male with past medical history significant for ischemic cardiomyopathy, status post ablation of VT, AICD placement, lymphoma status post treatment, CBD stricture status post stent placement and recent diagnosis of AFib a flutter, anticoagulated, type 2 diabetes mellitus, dyslipidemia, systolic congestive heart failure, coronary artery disease status post coronary artery bypass graft in 2007 due to LAD disease, ventricular tachycardia arrest AICD in place, patient also was diagnosed 3 years ago with cancer and has a stent placed in the bile duct that has been exchanged several times. He presented to to the emergency room with complaints of shortness of breath overall not feeling well for the 4-5 weeks or so was having symptoms of cold. 4-5 weeks ago patient started feeling shortness of breath and had some runny nose. he was treated with antibiotics but his dyspnea did not resolve. dyspnea was on minimal exertion. Has evaluated as an outpatient and was found to be in AFib. his lockstitch front maker increased his Coreg dose.
[2021-11-24 10:35] LABS: NT Pro B Type Natriuretic Pept 4310 pg/mL (5-100)
[2021-11-24 13:00] LABS: Glucose Point of Care 141 mg/dl (65-105)
[2021-11-24 17:56] LABS: Glucose Point of Care 141 mg/dl (65-105)
[2021-11-24] MEDS: INSULIN GLARGINE (*BKC) 100 UNITS/ML 30 UNITS SUB-Q (21:23)
[2021-11-24 21:32] LABS: Glucose Point of Care 182 mg/dl (65-105)
[2021-11-25] VITALS (25 sets, daily range): BP systolic 84–108; BP diastolic 63–89; PULSE 75–111; RESP 14–25; TEMP 36.3–36.4; O2SAT 93–97
[2021-11-25] MEDS: AMIODARONE 360 MG/D5W 200 ML 360 MG/200 ML BAG 16.67 MG IV CONT ×3 (00:14→22:11)
[2021-11-25] MEDS: ALBUTEROL SULFATE (*SP) AEROSOL 1 PUFF INHALATION ×4 (01:41→20:44)
[2021-11-25] MEDS: DOPamine 400 MG/D5W 250 ML 400 MG/250 ML BAG 7.93 MG IV CONT (04:10)
[2021-11-25 04:11] LABS: Glucose Point of Care 155 mg/dl (65-105)
[2021-11-25 06:18] LABS: Mean Corpuscular HGB Conc 29.8 g/dl (32-36); Mean Corpuscular Volume 73.8 fl (80-100); Mean Platelet Volume 8.7 fl (7.4-10.4); Platelet Count Result 272 k/mm3 (150-375); Red Blood Count 6.37 M/mm3 (4.6-6.20); Red Cell Distribution Width 20.1 % (11.5-14.5); White Blood Count 8.6 K/mm3 (4.5-10.0)
[2021-11-25 07:46] LABS: Glucose Point of Care 153 mg/dl (65-105)
[2021-11-25 07:57] LABS: Alanine Aminotransferase 34 U/L (4-50); Albumin Level 4.2 g/dL (3.5-5.1); Alkaline Phosphatase 39 U/L (38-126); Anion Gap 12 mmol/L (8-16); Aspartate Amino Transferase 50 U/L (17-59); Bilirubin,Total 0.9 mg/dL (0.2-1.3); Blood Urea Nitrogen 35 mg/dL (9-20); Calcium 8.9 mg/dL (8.4-10.2); Carbon Dioxide 21 mmol/L (22-30); Chloride 100 mmol/L (98-107); Estimated CRCL calculation 60 ml/min; Estimated Glomerular Filt Rate 47; Glucose 137 mg/dL (65-110); Magnesium 2.3 mg/dL (1.6-2.3); Potassium 4.8 mmol/L (3.4-5.0); Sodium 133 mmol/L (137-145)
[2021-11-25 08:16] LABS: Procalcitonin 0.1 ng/mL
[2021-11-25] MEDS: APIXABAN 5 MG TABLET PO ×2 (08:46→20:49)
[2021-11-25] MEDS: FERROUS SULFATE 324 MG TABLET PO ×2 (08:46→16:20)
[2021-11-25] MEDS: FENOFIBRATE 160 MG TABLET PO (08:47)
[2021-11-25] MEDS: PANTOPRAZOLE 40 MG TABLET PO ×2 (08:47→20:49)
[2021-11-25] MEDS: PRAVASTATIN SODIUM 20 MG TABLET 40 MG PO (08:47)
[2021-11-25] MEDS: BENZONATATE 100 MG CAPSULE 200 MG PO ×3 (08:48→20:55)
[2021-11-25] MEDS: MAG HYDROX/AL HYDROX/SIMETH 30 ML UDC PO (08:56)
--- NOTE | 2021-11-25 10:38 | WPDINTPN ---
Progress Note: A&P Assessment and Plan (1) Cardiogenic shock: Code(s): R57.0 - Cardiogenic shock Status: Acute Assessment and Plan: Patient has severe ischemic cardiomyopathy with LVEF of 30% with severe hypokinesia of apex anterior septal and anterior wall, RV is also dilated, by pulmonary hypertension and mild aortic stenosis. His congestive heart failure got decompensated likely secondary to AFib with RVR. He has converted to normal sinus rhythm and is currently on amiodarone infusion which will be managed by Cardiology. He was on low-dose dopamine for ionotropic and vasopressor affect but has been weaned off this morning his blood pressure is adequate at this. Ten you to monitor closely. His diuretics were held due to hypotension and worsening renal function. Although he does complain of shortness of breath and may have some pulmonary edema but in light of minimal oxygen requirement and hypertension along with acute kidney injury will continue to hold diuretics and limit fluid intake. Will resume diuretics if he stays off dopamine and maintains adequate blood pressure chest x-ray shows mild pulmonary edema he is anticoagulated with Eliquis. Continue to hold Coreg and Entresto due to shock Continue statin and fenofibrate (2) Atrial fibrillation with RVR: Code(s): I48.91 - Unspecified atrial fibrillation Status: Acute Assessment and Plan: currently in sinus rhythm (3) Cough: Code(s): R05.9 - Cough, unspecified Status: Acute Assessment and Plan: ordered p.r.n. Robitussin DM and Tessalon Perles for symptomatic relief this is likely secondary to pulmonary edema. his WBCs normal, he is afebrile and his procalcitonin level was normal (4) Acute kidney injury: Code(s): N17.9 - Acute kidney failure, unspecified Status: Acute Assessment and Plan: likely secondary to hypoperfusion from decompensated heart failure and shock creatinine is now improving and is 1.5 today continue monitor urine output electrolytes his CT of abdomen pelvis did not show any hydronephrosis (5) Coronary artery disease involving autologous artery coronary bypass graft: Code(s): I25.810 - Atherosclerosis of coronary artery bypass graft(s) without angina pectoris Status: Acute (6) Systolic heart failure, ACC/AHA stage D: Code(s): I50.20 - Unspecified systolic (congestive) heart failure Status: Acute (7) Decompensated heart failure: Code(s): I50.9 - Heart failure, unspecified Status: Acute (8) Type 2 diabetes mellitus: Code(s): E11.9 - Type 2 diabetes mellitus without complications Status: Acute Assessment and Plan: continue sliding scale Lantus and diabetic diet blood glucose is adequately controlled (9) Dyslipidemia: Code(s): E78.5 - Hyperlipidemia, unspecified Status: Acute Assessment and Plan: continue statin and fenofibrate Additional Plan DVT prophylaxis - on Eliquis SUP - On PPI Nutrition - cardiac diet Code Status - Full Code Total Critical Care Time - 30 minutes Due to a high probability of clinically significant, life threatening deterioration, the patient required my highest level of preparedness to intervene emergently and I personally spent this critical care time directly and personally managing the patient. This critical care time included obtaining a history; examining the patient; pulse oximetry; ordering and review of studies; arranging urgent treatment with development of a management plan; evaluation of patient's response to treatment; frequent reassessment; and discussions with other providers. It was exclusive of separately billable procedures and treating other patients and teaching time. Please see Assessment and Plan section and the rest of the note for further information on patient assessment and treatment Subjective Date/time seen: 11/25/21 kirk
[2021-11-25] MEDS: polyethylene glycoL 3350 17 GM POWD.PACK PO (11:09)
[2021-11-25] MEDS: BISACODYL 5 MG TABLET EC PO (11:09)
[2021-11-25 11:17] LABS: Glucose Point of Care 150 mg/dl (65-105)
--- NOTE | 2021-11-25 15:08 | ECG_ITS ---
Measurements Intervals [facility] Rate: 97 P: SC: 0 QRS: -58 QRSD: 135 T: 93 QT: 421 QTc: 536 Interpretive Statements ATRIAL FLUTTER/TACHYCARDIA IVCD, WITH FEATURES OF BOTH RBBB/LBBB ABNORMAL ECG Electronically Signed On 11-26-2021 7:52:27 CONFIGURATION MANAGEMENT ARCHITECT by Elmo Khoury D.O.
--- NOTE | 2021-11-25 15:12 | PM.PNCARD ---
Progress Note: A&P Assessment and Plan (1) Atrial fibrillation with RVR: Code(s): I48.91 - Unspecified atrial fibrillation Status: Acute Assessment and Plan: Still on amiodarone. Still in atypical atrial flutter/tachycardia. Will keep NPO after midnight for electrical cardioversion tomorrow. BMP and magnesium in the morning (2) Coronary artery disease involving autologous artery coronary bypass graft: Code(s): I25.810 - Atherosclerosis of coronary artery bypass graft(s) without angina pectoris Status: Acute Assessment and Plan: Continue statin. Carvedilol and Entresto on hold because of hypotension. (3) Systolic heart failure, ACC/AHA stage D: Code(s): I50.20 - Unspecified systolic (congestive) heart failure Status: Acute Assessment and Plan: Acute on chronic systolic heart failure. Decompensated. Off dopamine. Resume standard outpatient regimen when able. (4) Hypotension: Code(s): I95.9 - Hypotension, unspecified Status: Acute Assessment and Plan: Continue supportive care with dopamine. BP/CHF regimen on hold Subjective Date/time seen: 11/25/21 15:12 Interval history: This is a pleasant 61-year-old man who sees Dr. Washington in the office because of coronary disease and a significant ischemic cardiomyopathy. He was hospitalized after being seen in my office yesterday by the nurse practitioner because of atrial flutter/RVR and hypotension. Date of service 11/24/2021: Low chest pain. Still short of breath. Feels like his blood sugars is low. Overall still feels poorly on amiodarone and dopamine Date of service 11/25/2021: Off of pressors but still short of breath. No chest pain. No significant edema. Review of Systems Review of Systems: All systems reviewed & are unremarkable except as noted in HPI and below Constitutional: Constitutional: Denies headache(s), Reports lethargy and Reports weakness Eyes: Eyes: Reports no additional eye complaints and Denies blurry vision ENT: Reports system reviewed and no additional complaints, except as documented, Reports Normal hearing present and Denies headache(s) Cardiovascular: Cardiovascular: Reports as per HPI, Denies chest pain and Reports dyspnea on exertion Respiratory: Respiratory: Reports dyspnea on exertion Gastrointestinal: Gastrointestinal: Reports no additional gastrointestinal complaints and Denies abdominal pain Genitourinary: Genitourinary: Reports no additional male genitourinary complaints Musculoskeletal: Musculoskeletal: Reports no additional musculoskeletal complaints Integumentary/Breasts: Skin/Breast: Reports system reviewed and no additional complaints, except as docu Neurologic: Reports Normal hearing present, Denies headache(s) and Reports weakness Psychiatric: Psychiatric: Denies anxiety Endocrine: Endocrine: Reports no additional endocrine complaints Hematologic/Lymphatic: Hematologic/Lymphatic: Reports no additional hematologic/lymphatic complaints Allergic/Immunologic: Allergic/Immunologic: Reports no additional allergic/immunologic complaints Exam Const: General: comfortable and no acute distress Other: Pleasant gentleman seated in bed in the chest Pain Center head of bed elevated about 45? no distress currently HENMT: Mouth: Yes moist mucous membranes Eyes: Sclera: sclerae normal and scleral abnormality Neck: Neck: supple Carotids: bruit Other: No obvious venous distention Resp: Effort & Inspection: normal respiratory effort Other: Breath sounds somewhat diminished at the bases no audible rales rhonchi or wheezing Cardio: Rhythm: abnormal rhythm irregularly irregular GI: Auscultation: normal bowel sounds Skin: General skin exam: normal color Neuro: Cranial nerves: Yes Normal hearing present Cognition (Neuro): normal cognition Extrem: Other: Trivial pretibial edema Objective Data Vital Signs Vital Signs: Vital Signs - 24 hr 11/24/
[2021-11-25 17:10] LABS: Glucose Point of Care 170 mg/dl (65-105)
[2021-11-25] MEDS: INSULIN GLARGINE (*BKC) 100 UNITS/ML 30 UNITS SUB-Q (20:50)
[2021-11-25 20:59] LABS: Glucose Point of Care 171 mg/dl (65-105)
[2021-11-26] VITALS (23 sets, daily range): BP systolic 94–131; BP diastolic 64–96; PULSE 76–107; RESP 14–29; TEMP 36.4–36.8; O2SAT 92–97
[2021-11-26] MEDS: ALBUTEROL SULFATE (*SP) AEROSOL 1 PUFF INHALATION ×4 (02:34→20:13)
[2021-11-26 05:18] LABS: Hematocrit 47.6 % (42.0-52.0); Hemoglobin 14.2 g/dL (14.0-18.0); Mean Corpuscular HGB Conc 29.8 g/dl (32-36); Mean Corpuscular Hemoglobin 21.7 pg (26-34); Mean Corpuscular Volume 72.9 fl (80-100); Mean Platelet Volume 8.8 fl (7.4-10.4); Platelet Count Result 303 k/mm3 (150-375); Red Blood Count 6.53 M/mm3 (4.6-6.20); Red Cell Distribution Width 20.1 % (11.5-14.5); White Blood Count 8.4 K/mm3 (4.5-10.0)
[2021-11-26 06:46] LABS: Alanine Aminotransferase 359 U/L (4-50); Albumin Level 4.3 g/dL (3.5-5.1); Alkaline Phosphatase 44 U/L (38-126); Anion Gap 13 mmol/L (8-16); Aspartate Amino Transferase 705 U/L (17-59); Blood Urea Nitrogen 48 mg/dL (9-20); Calcium 8.6 mg/dL (8.4-10.2); Carbon Dioxide 21 mmol/L (22-30); Chloride 98 mmol/L (98-107); Estimated CRCL calculation 48 ml/min; Estimated Glomerular Filt Rate 36; Glucose 113 mg/dL (65-110); Magnesium 2.5 mg/dL (1.6-2.3); Potassium 4.3 mmol/L (3.4-5.0); Sodium 132 mmol/L (137-145)
[2021-11-26] MEDS: BENZONATATE 100 MG CAPSULE 200 MG PO ×3 (08:35→20:43)
[2021-11-26] MEDS: APIXABAN 5 MG TABLET PO ×2 (08:35→20:43)
[2021-11-26] MEDS: PANTOPRAZOLE 40 MG TABLET PO ×2 (08:35→20:43)
[2021-11-26] MEDS: guaiFENesin/DEXTROMETHORPHAN 10 ML UDC PO ×3 (08:36→20:44)
--- NOTE | 2021-11-26 09:53 | WPDINTPN ---
Progress Note: A&P Assessment and Plan (1) Cardiogenic shock: Code(s): R57.0 - Cardiogenic shock Status: Acute Assessment and Plan: Patient has severe ischemic cardiomyopathy with LVEF of 30% with severe hypokinesia of apex anterior septal and anterior wall, RV is also dilated, by pulmonary hypertension and mild aortic stenosis. -His congestive heart failure got decompensated likely secondary to AFib with RVR. - 11/26: converted to normal sinus rhythm and is currently on amiodarone infusion which will be managed by Cardiology. - OFF Dopamine. Maintain adequate MAP for adequate end organ perfusion -continue to hold diuretics, Coreg, Entresto, discussed with Dr. Washington -elevated LFTs and creatinine, worsening renal function. Will hold fenofibrate given LFTs being elevated -11/26: renal ultrasound and right upper quadrant ultrasound were unremarkable, - chest x-ray shows mild pulmonary edema - anticoagulated with Eliquis. - Hold statin and fenofibrate given transaminitis (2) Atrial fibrillation with RVR: Code(s): I48.91 - Unspecified atrial fibrillation Status: Acute Assessment and Plan: currently in sinus rhythm -discussed with Cardiology, patient no longer requires cardioversion -amiodarone infusion been turned off as patient is being started on p.o. amiodarone (3) Cough: Code(s): R05.9 - Cough, unspecified Status: Acute Assessment and Plan: Improvement with p.r.n. Robitussin DM and Tessalon Perles for symptomatic relief this is likely secondary to pulmonary edema. his WBCs normal, he is afebrile and his procalcitonin level was normal (4) Acute kidney injury: Code(s): N17.9 - Acute kidney failure, unspecified Status: Acute Assessment and Plan: likely secondary to hypoperfusion from decompensated heart failure and shock Creatinine was 1.9 this morning on 11/26 -renal ultrasound was unremarkable -urine lytes have been ordered and pending -nephrology has been consulted - continue monitor urine output electrolytes his CT of abdomen pelvis did not show any hydronephrosis (5) Coronary artery disease involving autologous artery coronary bypass graft: Code(s): I25.810 - Atherosclerosis of coronary artery bypass graft(s) without angina pectoris Status: Acute Assessment and Plan: Continue to hold statin and fenofibrate, Coreg, Entresto (6) Systolic heart failure, ACC/AHA stage D: Code(s): I50.20 - Unspecified systolic (congestive) heart failure Status: Acute Assessment and Plan: Echocardiogram 11/15/2021: EF of 30-35% with severe hypokinesis of the apex, anterolateral and anterior [place]. There is no thrombus visualized in the left ventricle echogenic structure located near the RV apex most likely calcified moderator band. RV chamber is moderately enlarged, RV systolic function is reduced. Mild pulmonary hypertension with RVSP of 41 mmHg. Mild aortic valve stenosis -cardiology is following the patient (7) Decompensated heart failure: Code(s): I50.9 - Heart failure, unspecified Status: Acute Assessment and Plan: Decompensated heart failure most likely related to cardiomyopathy and AFib RVR (8) Type 2 diabetes mellitus: Code(s): E11.9 - Type 2 diabetes mellitus without complications Status: Acute Assessment and Plan: continue sliding scale Lantus and diabetic diet blood glucose is adequately controlled (9) Dyslipidemia: Code(s): E78.5 - Hyperlipidemia, unspecified Status: Acute Assessment and Plan: continue statin and fenofibrate Additional Plan DVT prophylaxis - on Eliquis SUP - On PPI Nutrition - cardiac diet Code Status - Full Code Total Critical Care Time - 33 minutes Due to a high probability of clinically significant, life threatening deterioration, the patient required my highest level of preparedness to intervene emergently and I
[2021-11-26] MEDS: AMIODARONE 360 MG/D5W 200 ML 360 MG/200 ML BAG 16.67 MG IV CONT (10:11)
--- NOTE | 2021-11-26 10:46 | ECG_ITS ---
Measurements Intervals [facility] Rate: 78 P: 50 VT: 308 QRS: -51 QRSD: 136 T: 133 QT: 433 QTc: 494 Interpretive Statements SINUS RHYTHM WITH FIRST DEGREE AV BLOCK IVCD, WITH FEATURES OF BOTH RBBB/LBBB BASELINE WANDER- V4 ABNORMAL ECG Electronically Signed On 11-26-2021 13:08:15 NATURAL RESOURCE OFFICER by Elmo Khoury D.O.
[2021-11-26 11:31] LABS: Creatine Kinase 74 U/L (55-170)
--- NOTE | 2021-11-26 11:31 | PM.PNCARD ---
Progress Note: A&P Additional Plan 61-year-old man with well demonstrated and worked up. Ischemic cardiomyopathy as described above. He did not tolerate atrial flutter well he has chemically converted back to sinus rhythm with amiodarone. This will be continued and I will transition to an oral regimen of 400 mg q.12 hours today. His decompensation resulted in worsening renal function as well as elevated transaminases. Hopefully this will improve as he improves hemodynamically. He can transition to IMU and will gradually resume his Entresto and carvedilol as we can. Roberto Carlos Washington MD [facility] Subjective Date/time seen: 11/26/21 11:31 Interval history: This is a pleasant 61-year-old man who sees Dr. Washington in the office because of coronary disease and a significant ischemic cardiomyopathy. He was hospitalized after being seen in my office yesterday by the nurse practitioner because of atrial flutter/RVR and hypotension. Date of service 11/24/2021: Low chest pain. Still short of breath. Feels like his blood sugars is low. Overall still feels poorly on amiodarone and dopamine Date of service 11/25/2021: Off of pressors but still short of breath. No chest pain. No significant edema. Date of service 09/25/2022: Patient feeling well this morning although at bed rest in the ICU. About 9:00 a.m. he converted to sinus rhythm on his IV amiodarone infusion. Exam Const: General: comfortable and no acute distress Other: Pleasant gentleman seated in bed in the chest Pain Center head of bed elevated about 45? no distress currently HENMT: Mouth: Yes moist mucous membranes Eyes: Sclera: sclerae normal and scleral abnormality Neck: Neck: supple Carotids: bruit Other: No obvious venous distention Resp: Effort & Inspection: normal respiratory effort Other: Breath sounds somewhat diminished at the bases no audible rales rhonchi or wheezing Cardio: Rhythm: abnormal rhythm irregularly irregular GI: Auscultation: normal bowel sounds Skin: General skin exam: normal color Neuro: Cranial nerves: Yes Normal hearing present Cognition (Neuro): normal cognition Extrem: Other: Trivial pretibial edema Objective Data Vital Signs Vital Signs: Vital Signs - 24 hr 11/25/21 12:00 11/25/21 14:00 11/25/21 14:19 Temperature 36.3 C L Pulse Rate 92 111 H 87 Respiratory Rate 20 14 21 H Blood Pressure 89/74 L 84/70 L Pulse Oximetry 95 93 11/25/21 14:20 11/25/21 16:00 11/25/21 18:00 Temperature Pulse Rate 85 94 96 Respiratory Rate 20 20 20 Blood Pressure 94/76 L 101/89 Pulse Oximetry 96 95 11/25/21 20:00 11/25/21 20:44 11/25/21 20:53 Temperature 36.3 C L Pulse Rate 79 79 78 Respiratory Rate 22 H 25 H Blood Pressure 108/81 108/81 Pulse Oximetry 96 96 11/25/21 21:16 11/25/21 22:00 11/25/21 22:11 Temperature Pulse Rate 82 98 76 Respiratory Rate 25 H 22 H Blood Pressure 88/63 L 88/63 L Pulse Oximetry 94 11/26/21 00:00 11/26/21 02:00 11/26/21 02:35 Temperature 36.6 C Pulse Rate 94 80 76 Respiratory Rate 21 H 19 20 Blood Pressure 108/73 105/78 Pulse Oximetry 94 95 11/26/21 04:00 11/26/21 05:07 11/26/21 06:00 Temperature 36.4 C L Pulse Rate 107 H 93 93 Respiratory Rate 20 20 Blood Pressure 111/82 103/89 Pulse Oximetry 97 97 11/26/21 08:00 11/26/21 08:31 11/26/21 08:33 Temperature 36.6 C Pulse Rate 92 91 101 H Respiratory Rate 20 24 H 20 Blood Pressure 105/78 Pulse Oximetry 96 11/26/21 10:00 11/26/21 10:10 11/26/21 10:11 Temperature Pulse Rate 80 82 82 Respiratory Rate 16 Blood Pressure 94/64 L Pulse Oximetry 96 Intake/Output Intake/Output: Intake & Output 11/23/21 11/24/21 11/25/21 11/26/21 23:59 23:59 23:59 23:59 Intake Total 1200 2390 1904 500 Output Total 1300 1625 750 250 Balance -486 517 0122 250 Meds/Results Medications: Active Medications Generic Name Dose Route Start Last Admin Trade Name Freq PRN Reason Stop D
[2021-11-26 11:36] LABS: Glucose Point of Care 117 mg/dl (65-105)
[2021-11-26] MEDS: PRAVASTATIN SODIUM 20 MG TABLET 40 MG PO (11:45)
[2021-11-26] MEDS: FERROUS SULFATE 324 MG TABLET PO ×2 (11:45→16:28)
[2021-11-26] MEDS: AMIODARONE HCL 200 MG TABLET 400 MG PO (11:45)
--- NOTE | 2021-11-26 11:53 | PM.CNNEP ---
Assessment and Plan Assessment and plan (1) Acute kidney injury: Code(s): N17.9 - Acute kidney failure, unspecified Status: Acute Assessment and Plan: multifactorial etiology: hemodynamic instability/hypotension afib/aflutter contrast exposure [on 11/22 (from CT PE protocol) and on 11/23 (from CT C/A/P)] concurrent use of Entresto pre-renal factors(?) renal ultrasound noted follow-up on urine testing continue attempts at optimizing hemodynamics (2) Cardiogenic shock: Code(s): R57.0 - Cardiogenic shock Status: Acute Assessment and Plan: off dopamine at this time complicated by severe ischemic cardiomyopathy, pulmonary HTN, and mild aortic stenosis holding diuretics, coreg, and entresto to allow for better hemodynamics follow hemodynamics Cardiology following (3) Atrial fibrillation with RVR: Code(s): I48.91 - Unspecified atrial fibrillation Status: Acute Assessment and Plan: suspect culprit for decompensated heart failure rate control strategy on anticoagulation (4) Type 2 diabetes mellitus: Code(s): E11.9 - Type 2 diabetes mellitus without complications Status: Chronic Assessment and Plan: follow accuchecks glycemic control Extensive discussion (> 20 minutes) with patient and at bedside regarding the above issues with particular emphasis on his fluctuating kidney function. Case discussed with Dr. North as well. Will continue to follow History of Present Illness Reason for Consult Consult date: 11/26/21 Reason for consult: acute renal failure Chief Complaint Chief complaint: a fib with rvr,chf History of Present Illness Narrative: The patient is a 61-year-old male with a past medical history as outlined below who presented to [facility] Emergency room with complaints of shortness of breath and generalized sensation of not feeling well. His symptoms of shortness of breath and not feeling well in issue started 4-5 weeks ago and has been progressively getting worse in that time frame. Other associated symptoms included a runny nose and chest congestion initially it was felt that his shortness of breath may be a simple upper respiratory tract infection (viral versus bacterial?) And he was treated with antibiotics. However, his shortness of breath continued until it seemed that it is was present even with minimal exertion. Further outpatient testing did demonstrate that he was in atrial fibrillation and his agriculture engineer increased his medications for better rate control. However his shortness of breath continued to worsen with the development of symptoms of orthopnea and paroxysmal nocturnal dyspnea. When he followed up with cardiology's he was found to be in aflutter with a 2-1 block and was subsequently sent to the ER for evaluation. Further workup and evaluation emergency room demonstrated an elevated BNP as well as a chemistry that showed a mildly elevated creatinine of 1.4 mg/dL. His CBC was otherwise remarkable and he had no other acute complaints other than the extreme shortness of breath and denied any issues/problems with chest pain, palpitations, nausea, vomiting, or diarrhea although he did report some dizziness and lightheadedness. Given his constellation of symptoms in conjunction with his complex medical history, he was admitted the hospital for further evaluation and therapy. Initially he was admitted to step-down unit on an amiodarone drip in attempt to rate control his atrial fibrillation /a flutter. Unfortunately, he developed significant hypotension and had to be started on a dopamine drip with subsequent transferred to the ICU for closer monitoring given the need for vasopressor therapy. Since admission, his creatinine has been fluctuating but by labs done this AM, his creatinine had risen again up to 1.9 mg/dL. Renal consultation was requested due to his acute kidney injury/acute scotty
[2021-11-26 13:38] LABS: Hepatitis B Surface Antigen Negative (Negative)
[2021-11-26 13:45] LABS: HAV RESULT Negative (Negative); Hepatitis B Core IgM Result Negative (Negative)
[2021-11-26 14:05] LABS: Hepatitis C Virus Antibody Negative (Negative)
[2021-11-26 15:43] LABS: Creatinine Urine 271.7 mg/dL
[2021-11-26 15:47] LABS: Sodium Urine Random 21 meq/L
[2021-11-26 16:33] LABS: Glucose Point of Care 129 mg/dl (65-105)
[2021-11-26 17:29] LABS: Eosinophil Urine None Seen % (None Seen)
[2021-11-26 20:40] LABS: Glucose Point of Care 164 mg/dl (65-105)
[2021-11-26] MEDS: ZOLPIDEM TARTRATE (*CRX) 5 MG TABLET PO (20:43)
[2021-11-26] MEDS: INSULIN GLARGINE (*BKC) 100 UNITS/ML 30 UNITS SUB-Q (20:44)
[2021-11-27] VITALS (16 sets, daily range): BP systolic 99–134; BP diastolic 69–95; PULSE 88–129; RESP 20–28; TEMP 36.3–36.8; O2SAT 93–99
[2021-11-27] MEDS: guaiFENesin/DEXTROMETHORPHAN 10 ML UDC PO (02:13)
[2021-11-27 04:39] LABS: Hematocrit 47.6 % (42.0-52.0); Hemoglobin 14.6 g/dL (14.0-18.0); Mean Corpuscular HGB Conc 30.7 g/dl (32-36); Mean Corpuscular Volume 71.6 fl (80-100); Mean Platelet Volume 9.2 fl (7.4-10.4); Platelet Count Result 322 k/mm3 (150-375); Red Blood Count 6.65 M/mm3 (4.6-6.20); Red Cell Distribution Width 19.9 % (11.5-14.5); White Blood Count 9.8 K/mm3 (4.5-10.0)
[2021-11-27 05:21] LABS: Albumin Level 4.1 g/dL (3.5-5.1); Alkaline Phosphatase 56 U/L (38-126); Anion Gap 11 mmol/L (8-16); Bilirubin,Total 1.8 mg/dL (0.2-1.3); Blood Urea Nitrogen 52 mg/dL (9-20); Calcium 8.3 mg/dL (8.4-10.2); Carbon Dioxide 21 mmol/L (22-30); Chloride 97 mmol/L (98-107); Estimated CRCL calculation 60 ml/min; Estimated Glomerular Filt Rate 47; Glucose 86 mg/dL (65-110); Magnesium 2.4 mg/dL (1.6-2.3); Potassium 3.9 mmol/L (3.4-5.0); Sodium 129 mmol/L (137-145)
[2021-11-27 05:25] LABS: Alanine Aminotransferase 837 U/L (4-50); Aspartate Amino Transferase 1157 U/L (17-59)
[2021-11-27 07:55] LABS: Glucose Point of Care 98 mg/dl (65-105)
[2021-11-27] MEDS: ALBUTEROL SULFATE (*SP) AEROSOL 1 PUFF INHALATION ×3 (07:56→20:34)
[2021-11-27] MEDS: AMIODARONE HCL 200 MG TABLET 400 MG PO (08:08)
[2021-11-27] MEDS: APIXABAN 5 MG TABLET PO ×2 (08:08→20:52)
[2021-11-27] MEDS: FERROUS SULFATE 324 MG TABLET PO (08:08)
[2021-11-27] MEDS: PANTOPRAZOLE 40 MG TABLET PO ×2 (08:09→20:52)
--- NOTE | 2021-11-27 08:41 | PM.PNCARD ---
Progress Note: A&P Additional Plan Will continue PO Amiodarone at 800 mg Daily and still hold CHF meds after discussion with Dr North. Hope and expect that as Amiodarone is loaded will have less propensity for AF . Roberto Carlos Washington MD [facility] Subjective Date/time seen: 11/27/21 08:41 Interval history: This is a pleasant 61-year-old man who sees Dr. Washington in the office because of coronary disease and a significant ischemic cardiomyopathy. He was hospitalized after being seen in my office yesterday by the nurse practitioner because of atrial flutter/RVR and hypotension. Date of service 11/24/2021: Low chest pain. Still short of breath. Feels like his blood sugars is low. Overall still feels poorly on amiodarone and dopamine Date of service 11/25/2021: Off of pressors but still short of breath. No chest pain. No significant edema. Date of service 09/25/2022: Patient feeling well this morning although at bed rest in the ICU. About 9:00 a.m. he converted to sinus rhythm on his IV amiodarone infusion. Date of service: Asymptomatic . COnverted back into A Flutter overnight but HR 90 s and no symptoms Exam Const: General: comfortable and no acute distress Other: Pleasant gentleman seated in bed in the chest Pain Center head of bed elevated about 45? no distress currently HENMT: Mouth: Yes moist mucous membranes Eyes: Sclera: sclerae normal and scleral abnormality Neck: Neck: supple Carotids: bruit Other: No obvious venous distention Resp: Effort & Inspection: normal respiratory effort Other: Breath sounds somewhat diminished at the bases no audible rales rhonchi or wheezing Cardio: Rhythm: abnormal rhythm irregularly irregular GI: Auscultation: normal bowel sounds Skin: General skin exam: normal color Neuro: Cranial nerves: Yes Normal hearing present Cognition (Neuro): normal cognition Extrem: Other: Trivial pretibial edema Objective Data Vital Signs Vital Signs: Vital Signs - 24 hr 11/26/21 10:00 11/26/21 10:10 11/26/21 10:11 Temperature Pulse Rate 80 82 82 Respiratory Rate 16 Blood Pressure 94/64 L Pulse Oximetry 96 11/26/21 11:45 11/26/21 12:00 11/26/21 14:00 Temperature 36.7 C Pulse Rate 79 77 79 Respiratory Rate 14 20 Blood Pressure 114/75 105/70 Pulse Oximetry 94 95 11/26/21 14:15 11/26/21 14:17 11/26/21 16:00 Temperature 36.7 C Pulse Rate 78 82 80 Respiratory Rate 19 16 20 Blood Pressure 107/81 Pulse Oximetry 95 11/26/21 18:00 11/26/21 20:00 11/26/21 20:13 Temperature 36.8 C Pulse Rate 80 82 83 Respiratory Rate 18 24 H 20 Blood Pressure 122/92 H 119/87 Pulse Oximetry 97 96 11/26/21 20:15 11/26/21 22:00 11/27/21 00:00 Temperature 36.8 C Pulse Rate 82 84 88 Respiratory Rate 24 H 29 H 24 H Blood Pressure 131/96 H 134/95 H Pulse Oximetry 92 95 11/27/21 02:00 11/27/21 04:00 11/27/21 06:00 Temperature 36.3 C L Pulse Rate 98 116 H 97 Respiratory Rate 21 H 22 H 20 Blood Pressure 114/69 102/90 115/90 Pulse Oximetry 93 97 96 11/27/21 07:58 11/27/21 08:00 11/27/21 08:08 Temperature 36.4 C Pulse Rate 102 H 100 91 Respiratory Rate 28 H 22 H Blood Pressure 99/80 L Pulse Oximetry 96 93 Intake/Output Intake/Output: Intake & Output 11/24/21 11/25/21 11/26/21 11/27/21 23:59 23:59 23:59 23:59 Intake Total 2390 1904 1680 402 Output Total 1625 678 600 900 Balance 5 8196 9908 -498 Meds/Results Medications: Active Medications Generic Name Dose Route Start Last Admin Trade Name Freq PRN Reason Stop Dose Admin Acetaminophen 650 mg 11/23/21 22:41 11/23/21 22:52 Acetaminophen 325 Mg Tablet PO 650 mg Q6H PRN Administration Mild Pain (1-3) or Fever Al Hydrox/Mg Hydrox/Simethicone 30 ml 11/25/21 07:32 11/25/21 08:56 Mag Hydrox/Al Hydrox/Simeth 30 Ml Udc PO 30 ml Q6H PRN Administration Indigestion Albuterol 1 puff 11/23/21 02:00 11/27/21 07:56 Albuterol Sulfate (*Sp) A
--- NOTE | 2021-11-27 11:06 | P.PNNP_ITS ---
Progress Note: A&P Assessment and Plan (1) Acute kidney injury: Code(s): N17.9 - Acute kidney failure, unspecified Status: Acute Assessment and Plan: * multifactorial etiology: * hemodynamic instability/hypotension * afib/aflutter * contrast exposure [on 11/22 (from CT PE protocol) and on 11/23 (from CT C/A/P)] * concurrent use of Entresto * pre-renal factors(?) * evaluation to date: * renal ultrasound unremarkable * urine electrolytes with prerenal azotemia (due to depressed EF most likely) * urine eosinophils negative * CPK normal * continue attempts at optimizing hemodynamics * follow trend of repeat labs and UOP (2) Cardiogenic shock: Code(s): R57.0 - Cardiogenic shock Status: Acute Assessment and Plan: * off dopamine at this time * complicated by severe ischemic cardiomyopathy, pulmonary HTN, and mild aortic stenosis * holding diuretics, coreg, and entresto to allow for better hemodynamics * follow hemodynamics * Cardiology following (3) Atrial fibrillation with RVR: Code(s): I48.91 - Unspecified atrial fibrillation Status: Acute Assessment and Plan: * suspect culprit for decompensated heart failure * rate control strategy * on anticoagulation (4) Type 2 diabetes mellitus: Code(s): E11.9 - Type 2 diabetes mellitus without complications Status: Chronic Assessment and Plan: * follow accuchecks * glycemic control Will continue to follow Subjective Date/time seen: 11/27/21 11:06 Seems to be doing fairly well at the time of my visit - sleeping comfortably but easily awakes; respiratory status stable; improvement in renal function noted with backing off on BP medications; no other acute issues/events overnight or earlier this AM. Exam Narrative: General: WD/WN male in NAD Heart: normal S1 and S2; IRRR Lungs: diminished at bases Abdomen: soft, nontender, nondistended, positive bowel sounds Extremities: no cyanosis or clubbing; trace edema Skin: warm and dry Objective Data Vital Signs Vital Signs: Vital Signs Temp Pulse Resp BP Pulse Ox 11/27/21 08:08 91 11/27/21 08:00 36.4 C 100 22 H 99/80 L 93 11/27/21 07:58 102 H 28 H 96 11/27/21 06:00 97 20 115/90 96 11/27/21 04:00 36.3 C L 116 H 22 H 102/90 97 11/27/21 02:00 98 21 H 114/69 93 11/27/21 00:00 36.8 C 88 24 H 134/95 H 95 11/26/21 22:00 84 29 H 131/96 H 92 11/26/21 20:15 82 24 H 11/26/21 20:13 83 20 11/26/21 20:00 36.8 C 82 24 H 119/87 96 11/26/21 18:00 80 18 122/92 H 97 11/26/21 16:00 36.7 C 80 20 107/81 95 11/26/21 14:17 82 16 11/26/21 14:15 78 19 11/26/21 14:00 79 20 105/70 95 11/26/21 12:00 36.7 C 77 14 114/75 94 11/26/21 11:45 79 Intake/Output Intake/Output: Intake & Output 11/24/21 11/25/21 11/26/21 11/27/21 23:59 23:59 23:59 23:59 Intake Total 2390 1904 1680 402 Output Total 1625 750 600 900 Balance 765 3926 1623 -701 Meds/Results Medications: Active Medications Generic Name Dose Route Start Last Admin Trade Name Wilverq PRN Reason Stop Dose Admin Acet
--- NOTE | 2021-11-27 11:06 | PM.PNNEP ---
Progress Note: A&P Assessment and Plan (1) Acute kidney injury: Code(s): N17.9 - Acute kidney failure, unspecified Status: Acute Assessment and Plan: multifactorial etiology: hemodynamic instability/hypotension afib/aflutter contrast exposure [on 11/22 (from CT PE protocol) and on 11/23 (from CT C/A/P)] concurrent use of Entresto pre-renal factors(?) evaluation to date: renal ultrasound unremarkable urine electrolytes with prerenal azotemia (due to depressed EF most likely) urine eosinophils negative CPK normal continue attempts at optimizing hemodynamics follow trend of repeat labs and UOP (2) Cardiogenic shock: Code(s): R57.0 - Cardiogenic shock Status: Acute Assessment and Plan: off dopamine at this time complicated by severe ischemic cardiomyopathy, pulmonary HTN, and mild aortic stenosis holding diuretics, coreg, and entresto to allow for better hemodynamics follow hemodynamics Cardiology following (3) Atrial fibrillation with RVR: Code(s): I48.91 - Unspecified atrial fibrillation Status: Acute Assessment and Plan: suspect culprit for decompensated heart failure rate control strategy on anticoagulation (4) Type 2 diabetes mellitus: Code(s): E11.9 - Type 2 diabetes mellitus without complications Status: Chronic Assessment and Plan: follow accuchecks glycemic control Will continue to follow Subjective Date/time seen: 11/27/21 11:06 Seems to be doing fairly well at the time of my visit - sleeping comfortably but easily awakes; respiratory status stable; improvement in renal function noted with backing off on BP medications; no other acute issues/events overnight or earlier this AM. Exam Narrative: General: WD/WN male in NAD Heart: normal S1 and S2; IRRR Lungs: diminished at bases Abdomen: soft, nontender, nondistended, positive bowel sounds Extremities: no cyanosis or clubbing; trace edema Skin: warm and dry Objective Data Vital Signs Vital Signs: Vital Signs Temp Pulse Resp BP Pulse Ox 11/27/21 08:08 91 11/27/21 08:00 36.4 C 100 22 H 99/80 L 93 11/27/21 07:58 102 H 28 H 96 11/27/21 06:00 97 20 115/90 96 11/27/21 04:00 36.3 C L 116 H 22 H 102/90 97 11/27/21 02:00 98 21 H 114/69 93 02/22/22 00:00 36.8 C 88 24 H 134/95 H 95 11/26/21 22:00 84 29 H 131/96 H 92 11/26/21 20:15 82 24 H 11/26/21 20:13 83 20 11/26/21 20:00 36.8 C 82 24 H 119/87 96 11/26/21 18:00 80 18 122/92 H 97 11/26/21 16:00 36.7 C 80 20 107/81 95 11/26/21 14:17 82 16 11/26/21 14:15 78 19 11/26/21 14:00 79 20 105/70 95 11/26/21 12:00 36.7 C 77 14 114/75 94 11/26/21 11:45 79 Intake/Output Intake/Output: Intake & Output 11/24/21 11/25/21 11/26/21 11/27/21 23:59 23:59 23:59 23:59 Intake Total 2390 1904 1680 402 Output Total 1625 750 600 900 Balance 765 1155 6653 -451 Meds/Results Medications: Active Medications Generic Name Dose Route Start Last Admin Trade Name Freq PRN Reason Stop Dose Admin Acetaminophen 650 mg 11/23/21 22:41 11/23/21 22:52 Acetaminophen 325 Mg Tablet PO 650 mg Q6H PRN Administration Mild Pain (1-3) or Fever Al Hydrox/Mg Hydrox/Simethicone 30 ml 11/25/21 07:32 11/25/21 08:56 Mag Hydrox/Al Hydrox/Simeth 30 Ml Udc PO 30 ml Q6H PRN Administration Indigestion Albuterol 1 puff 11/23/21 02:00 11/27/21 07:56 Albuterol Sulfate (*Sp) Aerosol 1 Puff INHALATION 1 puff Q6HRT RITA Administration Amiodarone HCl 400 mg 11/26/21 11:36 11/27/21 08:08 Amiodarone Hcl 200 Mg Tablet PO 400 mg DAILY@0800 RITA Administration Apixaban 5 mg 11/23/21 09:00 11/27/21 08:08 Apixaban 5 Mg Tablet PO 5 mg Q12HR RITA Administration Benzonatate 200 mg 11/25/21 07:32 02/21/22 20:43 Benzonatate 100 Mg Capsule PO 200 mg TID PRN Admi
[2021-11-27 11:59] LABS: Glucose Point of Care 150 mg/dl (65-105)
--- NOTE | 2021-11-27 12:27 | WPDGICN ---
Assessment and Plan Assessment and plan (1) Elevated liver function tests: Code(s): R79.89 - Other specified abnormal findings of blood chemistry Status: Acute Assessment and Plan: given the dramatic jump in his liver enzymes, from entirely normal the day of admission to AST of 705 yesterday and over 1000 today. Likewise AST has jumped from normal to over 800, I would say this is all consistent with shock liver. His alkaline phosphatase by the way remains normal and bilirubin is only slightly elevated. I had discussion with the patient about shock liver. Explained that due to a drop in his blood pressure the transaminases increased dramatically but usually return to normal within a few days. He is not have a history of excessive alcohol use or other liver disease. (2) Cardiogenic shock: Code(s): R57.0 - Cardiogenic shock Status: Acute Assessment and Plan: This has recovered with pressors, but is likely the explanation for his ischemic hepatopathy (3) Hypotension: Code(s): I95.9 - Hypotension, unspecified Status: Acute (4) Atrial fibrillation: Qualifiers: Atrial fibrillation type: unspecified Qualified Code(s): I48.91 - Unspecified atrial fibrillation Code(s): I48.91 - Unspecified atrial fibrillation Status: Acute Assessment and Plan: For this reason he has been started on amiodarone and is now on Eliquis. He has been in and out of atrial flutter (5) Common bile duct stricture: Code(s): K83.1 - Obstruction of bile duct Status: Acute Assessment and Plan: there are notes going back to [address] Peters in [place] who had been replacing his biliary strictures every 6 months or so with plastic stents due to a recurrent stricture of the distal common bile duct. he in fact was going to have a follow-up ERCP today with possible replacement of his stents I do not believe that his current enzyme elevation is related to biliary duct problems, as he would have more up phosphatase elevation and bilirubin. Also he would have had gradual elevation of enzymes. GI Consult Note Consult date/time: 11/27/21 12:27 HPI: Ronal Spears is a 61 year old male I am asked to see regarding elevated liver enzymes. 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 he has had repeated replacement plastic biliary stents by in [place] for a stricture of the distal common bile duct. He is now in intensive care because of cardiogenic shock, And hypotension. He was originally admitted to the floor, became hypotensive, was started on dopamine. He has a past medical history significant for ischemic cardiomyopathy, status post ablation of VT, AICD placement, lymphoma status post treatment, CBD stricture status post stent placement and recent diagnosis of AFib a flutter, anticoagulated, type 2 diabetes mellitus, dyslipidemia, systolic congestive heart failure, coronary artery disease status post coronary artery bypass graft in 2007 due to LAD disease, ventricular tachycardia arrest AICD in place, patient also was diagnosed 3 years ago with cancer and has a stent placed in the bile duct that has been exchanged several times. He presented to to the emergency room with complaints of shortness of breath overall not feeling well for the 4-5 weeks or so was having symptoms of cold. 4-5 weeks ago patient started feeling shortness of breath and had some runny nose. he was treated with antibiotics but his dyspnea did not resolve. dyspnea was on minimal exertion. He states that he was 1st found to have a stricture of his bile duct when his lymphoma was compressing it. Initially he would have replacement of plastic stents every 3 months or so. He had a permanent stent, a metallic stent for a year to but that had to be removed and replaced. He actually was due to go in for reassessment and possible replacement of his
--- NOTE | 2021-11-27 14:16 | WPDINTPN ---
Progress Note: A&P Assessment and Plan (1) Cardiogenic shock: Code(s): R57.0 - Cardiogenic shock Status: Acute Assessment and Plan: Patient has severe ischemic cardiomyopathy with LVEF of 30% with severe hypokinesia of apex anterior septal and anterior wall, RV is also dilated, by pulmonary hypertension and mild aortic stenosis. -His congestive heart failure got decompensated likely secondary to AFib with RVR. - 11/26: converted to normal sinus rhythm and is currently on amiodarone infusion which will be managed by Cardiology. - OFF Dopamine. Maintain adequate MAP for adequate end organ perfusion -continue to hold diuretics, Coreg, Entresto, discussed with Dr. Washington -, worsening renal function. Will hold fenofibrate given LFTs being elevated -11/26: renal ultrasound unremarkable - chest x-ray shows mild pulmonary edema - anticoagulated with Eliquis. - Hold statin and fenofibrate given transaminitis (2) Atrial fibrillation with RVR: Code(s): I48.91 - Unspecified atrial fibrillation Status: Acute Assessment and Plan: On 11/26/2021: Patient converted back to sinus rhythm, discussed with cardiology, patient no longer requires cardioversion -amiodarone infusion been turned off as patient is being started on p.o. amiodarone -11/27/2021 patient went back AFib, but rate controlled (3) Cough: Code(s): R05.9 - Cough, unspecified Status: Acute Assessment and Plan: Improvement with p.r.n. Robitussin DM and Tessalon Perles for symptomatic relief this is likely secondary to pulmonary edema. his WBCs normal, he is afebrile and his procalcitonin level was normal (4) Acute kidney injury: Code(s): N17.9 - Acute kidney failure, unspecified Status: Acute Assessment and Plan: likely secondary to hypoperfusion from decompensated heart failure and shock Creatinine was 1.9 this morning on 11/26 -11/27/2021: Creatinine 1.5 with improved urine output -renal ultrasound was unremarkable -urine urine sodium not pre renal -appreciate Nephrology evaluation recommendation - continue monitor urine output electrolytes his CT of abdomen pelvis did not show any hydronephrosis (5) Coronary artery disease involving autologous artery coronary bypass graft: Code(s): I25.810 - Atherosclerosis of coronary artery bypass graft(s) without angina pectoris Status: Acute Assessment and Plan: Continue to hold statin and fenofibrate, Coreg, Entresto. Discuss with Cardiology Dr. Washington (6) Systolic heart failure, ACC/AHA stage D: Code(s): I50.20 - Unspecified systolic (congestive) heart failure Status: Acute Assessment and Plan: Echocardiogram 11/15/2021: EF of 30-35% with severe hypokinesis of the apex, anterolateral and anterior burnham. There is no thrombus visualized in the left ventricle echogenic structure located near the RV apex most likely calcified moderator band. RV chamber is moderately enlarged, RV systolic function is reduced. Mild pulmonary hypertension with RVSP of 41 mmHg. Mild aortic valve stenosis -cardiology is following the patient (7) Decompensated heart failure: Code(s): I50.9 - Heart failure, unspecified Status: Acute Assessment and Plan: Decompensated heart failure most likely related to cardiomyopathy and AFib RVR (8) Type 2 diabetes mellitus: Code(s): E11.9 - Type 2 diabetes mellitus without complications Status: Acute Assessment and Plan: continue sliding scale Lantus and diabetic diet blood glucose is adequately controlled (9) Dyslipidemia: Code(s): E78.5 - Hyperlipidemia, unspecified Status: Acute Assessment and Plan: continue statin and fenofibrate (10) Elevated liver function tests: Code(s): R79.89 - Other specified abnormal findings of blood chemistry Status: Acute Assessment and Plan: elevated LFTs and creatinine - 11/26: right upp
[2021-11-27] MEDS: DORNASE ALFA INH SOLN 1 MG/ML 2.5 ML AMP 2.5 MG INHALATION (14:58)
[2021-11-27 17:37] LABS: Glucose Point of Care 142 mg/dl (65-105)
[2021-11-27] MEDS: INSULIN GLARGINE (*BKC) 100 UNITS/ML 30 UNITS SUB-Q (20:52)
[2021-11-27 21:00] LABS: Glucose Point of Care 237 mg/dl (65-105)
[2021-11-28] VITALS (18 sets, daily range): BP systolic 93–119; BP diastolic 79–87; PULSE 90–127; RESP 17–25; TEMP 36.7–36.9; O2SAT 95–98
[2021-11-28] MEDS: ALBUTEROL SULFATE (*SP) AEROSOL 1 PUFF INHALATION ×4 (02:03→20:04)
[2021-11-28 04:35] LABS: Hematocrit 45.4 % (42.0-52.0); Hemoglobin 14.3 g/dL (14.0-18.0); Mean Corpuscular HGB Conc 31.5 g/dl (32-36); Mean Corpuscular Hemoglobin 22.1 pg (26-34); Mean Corpuscular Volume 70.3 fl (80-100); Mean Platelet Volume 8.7 fl (7.4-10.4); Platelet Count Result 309 k/mm3 (150-375); Red Blood Count 6.46 M/mm3 (4.6-6.20); Red Cell Distribution Width 19.9 % (11.5-14.5); White Blood Count 10.3 K/mm3 (4.5-10.0)
[2021-11-28 04:48] LABS: Alanine Aminotransferase 744 U/L (4-50); Albumin Level 3.9 g/dL (3.5-5.1); Alkaline Phosphatase 62 U/L (38-126); Anion Gap 10 mmol/L (8-16); Aspartate Amino Transferase 560 U/L (17-59); Bilirubin,Total 1.7 mg/dL (0.2-1.3); Blood Urea Nitrogen 47 mg/dL (9-20); Carbon Dioxide 23 mmol/L (22-30); Chloride 96 mmol/L (98-107); Estimated CRCL calculation 64 ml/min; Estimated Glomerular Filt Rate 51; Glucose 139 mg/dL (65-110); Magnesium 2.3 mg/dL (1.6-2.3); Potassium 4.1 mmol/L (3.4-5.0); Sodium 129 mmol/L (137-145)
[2021-11-28] MEDS: AMIODARONE HCL 200 MG TABLET 400 MG PO (08:46)
[2021-11-28] MEDS: FERROUS SULFATE 324 MG TABLET PO ×2 (08:47→16:22)
[2021-11-28] MEDS: PANTOPRAZOLE 40 MG TABLET PO ×2 (08:47→21:14)
[2021-11-28] MEDS: APIXABAN 5 MG TABLET PO ×2 (08:47→21:14)
[2021-11-28] MEDS: BISACODYL 5 MG TABLET EC PO (08:47)
--- NOTE | 2021-11-28 10:55 | ECG_ITS ---
Measurements Intervals [place] Rate: 101 P: SC: 0 QRS: -57 QRSD: 134 T: 125 QT: 404 QTc: 526 Interpretive Statements ATRIAL FLUTTER/TACHYCARDIA WITH RAPID VENTRICULAR RESPONSE LEFT BUNDLE BRANCH BLOCK ABNORMAL ECG Electronically Signed On 11-28-2021 13:55:33 NEWS GATHERING TECHNICIAN by Elmo Khoury D.O.
--- NOTE | 2021-11-28 11:25 | PM.IMPN ---
Progress Note: A&P Assessment and Plan (1) Cardiogenic shock: Code(s): R57.0 - Cardiogenic shock Status: Acute Assessment and Plan: RESOLVED Patient has severe ischemic cardiomyopathy with LVEF of 30% with severe hypokinesia of apex anterior septal and anterior wall, RV is also dilated, by pulmonary hypertension and mild aortic stenosis. -His congestive heart failure got decompensated likely secondary to AFib with RVR. - 11/26: converted to normal sinus rhythm and is On PO Amiodarone - OFF Dopamine. Maintain adequate MAP for adequate end organ perfusion -continue to hold diuretics, Entresto, discussed with Dr. Washington -renal function and LFTs continue to improve. -11/26: renal ultrasound unremarkable - chest x-ray shows mild pulmonary edema - anticoagulated with Eliquis. - Hold statin and fenofibrate given transaminitis (2) Atrial fibrillation with RVR: Code(s): I48.91 - Unspecified atrial fibrillation Status: Acute Assessment and Plan: On 11/26/2021: Patient converted back to sinus rhythm, discussed with cardiology, patient no longer requires cardioversion -amiodarone infusion been turned off as patient is being started on p.o. amiodarone -11/27/2021 patient went back AFib, but rate controlled -11/28: A.fib RVR, started pt on low dose coreg (3) Cough: Code(s): R05.9 - Cough, unspecified Status: Acute Assessment and Plan: Improvement with p.r.n. Robitussin DM and Tessalon Perles for symptomatic relief this is likely secondary to pulmonary edema. his WBCs normal, he is afebrile and his procalcitonin level was normal (4) Acute kidney injury: Code(s): N17.9 - Acute kidney failure, unspecified Status: Acute Assessment and Plan: likely secondary to hypoperfusion from decompensated heart failure and shock Creatinine was 1.9 this morning on 11/26 -11/27/2021: Creatinine 1.4 with improved urine output -renal ultrasound was unremarkable -urine urine sodium not pre renal -appreciate Nephrology evaluation recommendation - continue monitor urine output electrolytes his CT of abdomen pelvis did not show any hydronephrosis (5) Coronary artery disease involving autologous artery coronary bypass graft: Code(s): I25.810 - Atherosclerosis of coronary artery bypass graft(s) without angina pectoris Status: Acute Assessment and Plan: Continue to hold statin and fenofibrate, Entresto. Discuss with Cardiology Dr. Washington -restarted Coreg on 11/28 (6) Systolic heart failure, ACC/AHA stage D: Code(s): I50.20 - Unspecified systolic (congestive) heart failure Status: Acute Assessment and Plan: Echocardiogram 11/15/2021: EF of 30-35% with severe hypokinesis of the apex, anterolateral and anterior burnham. There is no thrombus visualized in the left ventricle echogenic structure located near the RV apex most likely calcified moderator band. RV chamber is moderately enlarged, RV systolic function is reduced. Mild pulmonary hypertension with RVSP of 41 mmHg. Mild aortic valve stenosis -cardiology is following the patient (7) Decompensated heart failure: Code(s): I50.9 - Heart failure, unspecified Status: Acute Assessment and Plan: Decompensated heart failure most likely related to cardiomyopathy and AFib RVR (8) Type 2 diabetes mellitus: Code(s): E11.9 - Type 2 diabetes mellitus without complications Status: Acute Assessment and Plan: continue sliding scale Lantus and diabetic diet blood glucose is adequately controlled (9) Dyslipidemia: Code(s): E78.5 - Hyperlipidemia, unspecified Status: Acute Assessment and Plan: continue statin and fenofibrate (10) Elevated liver function tests: Code(s): R79.89 - Other specified abnormal findings of blood chemistry Status: Acute Assessment and Plan: LFTs improving - 11/26: right upper quadrant ultrasound w
[2021-11-28] MEDS: carvediloL 6.25 MG TABLET PO (11:51)
--- NOTE | 2021-11-28 13:02 | P.PNNP_ITS ---
Progress Note: A&P Assessment and Plan (1) Acute kidney injury: Code(s): N17.9 - Acute kidney failure, unspecified Status: Acute Assessment and Plan: * multifactorial etiology: * hemodynamic instability/hypotension * afib/aflutter * contrast exposure [on 11/22 (from CT PE protocol) and on 11/23 (from CT C/A/P)] * concurrent use of Entresto * pre-renal factors(?) * evaluation to date: * renal ultrasound unremarkable * urine electrolytes with prerenal azotemia (due to depressed EF most likely) * urine eosinophils negative * CPK normal * continue attempts at optimizing/maintaining hemodynamics * follow trend of repeat labs and UOP (2) Cardiogenic shock: Code(s): R57.0 - Cardiogenic shock Status: Acute Assessment and Plan: * off dopamine at this time * complicated by severe ischemic cardiomyopathy, pulmonary HTN, and mild aortic stenosis * holding diuretics, coreg, and entresto to allow for better hemodynamics * given symptoms, suspect will have to resume/restart diuretic therapy * Cardiology following (3) Atrial fibrillation with RVR: Code(s): I48.91 - Unspecified atrial fibrillation Status: Acute Assessment and Plan: * suspect culprit for decompensated heart failure * rate control strategy * on anticoagulation (4) Type 2 diabetes mellitus: Code(s): E11.9 - Type 2 diabetes mellitus without complications Status: Chronic Assessment and Plan: * follow accuchecks * glycemic control Will continue to follow Subjective Date/time seen: 11/28/21 13:02 With better hemodynamics, renal function/creatinine has improved; currently off dopamine with relatively stable blood pressure; however, he is complaining of a bit more shortness of breath on my visit with him; no other reported issue/event overnight or earlier this AM; no acute distress noted at this time. Exam Narrative: General: WD/WN male in NAD Heart: normal S1 and S2; IRRR Lungs: diminished at bases Abdomen: soft, nontender, nondistended, positive bowel sounds Extremities: no cyanosis or clubbing; trace edema Skin: warm and intact Objective Data Vital Signs Vital Signs: Vital Signs Temp Pulse Resp BP Pulse Ox 11/28/21 12:00 110 H 11/28/21 11:51 127 H 11/28/21 10:00 127 H 11/28/21 08:46 118 H 11/28/21 08:28 98 22 H 96 11/28/21 08:00 36.9 C 118 H 22 H 119/83 96 11/28/21 06:00 108 H 11/28/21 04:00 108 H 11/28/21 02:00 125 H 11/28/21 00:00 36.7 C 121 H 20 114/87 95 11/27/21 22:00 106 H 11/27/21 20:00 129 H 99 Intake/Output Intake/Output: Intake & Output 11/25/21 11/26/21 11/27/21 11/28/21 23:59 23:59 23:59 23:59 Intake Total 1904 1680 1002 1040 Output Total 750 600 900 800 Balance 1154 1080 102 240 Meds/Results Medications: Active Medications Generic Name Dose Route Start Last Admin Trade Name Freq PRN Reason Stop Dose Admin Acetaminophen 650 mg 11/23/21 22:41 11/23/21 22:52 Acetaminophen 325 Mg Tablet PO 650 mg Q6H PRN Administration Mild Pain (1-3) or Fever Al Hydrox/Mg Hydrox/Simethicone 30 ml 11/25/21 07:3
--- NOTE | 2021-11-28 13:02 | PM.PNNEP ---
Progress Note: A&P Assessment and Plan (1) Acute kidney injury: Code(s): N17.9 - Acute kidney failure, unspecified Status: Acute Assessment and Plan: multifactorial etiology: hemodynamic instability/hypotension afib/aflutter contrast exposure [on 11/22 (from CT PE protocol) and on 11/23 (from CT C/A/P)] concurrent use of Entresto pre-renal factors(?) evaluation to date: renal ultrasound unremarkable urine electrolytes with prerenal azotemia (due to depressed EF most likely) urine eosinophils negative CPK normal continue attempts at optimizing/maintaining hemodynamics follow trend of repeat labs and UOP (2) Cardiogenic shock: Code(s): R57.0 - Cardiogenic shock Status: Acute Assessment and Plan: off dopamine at this time complicated by severe ischemic cardiomyopathy, pulmonary HTN, and mild aortic stenosis holding diuretics, coreg, and entresto to allow for better hemodynamics given symptoms, suspect will have to resume/restart diuretic therapy Cardiology following (3) Atrial fibrillation with RVR: Code(s): I48.91 - Unspecified atrial fibrillation Status: Acute Assessment and Plan: suspect culprit for decompensated heart failure rate control strategy on anticoagulation (4) Type 2 diabetes mellitus: Code(s): E11.9 - Type 2 diabetes mellitus without complications Status: Chronic Assessment and Plan: follow accuchecks glycemic control Will continue to follow Subjective Date/time seen: 11/28/21 13:02 With better hemodynamics, renal function/creatinine has improved; currently off dopamine with relatively stable blood pressure; however, he is complaining of a bit more shortness of breath on my visit with him; no other reported issue/event overnight or earlier this AM; no acute distress noted at this time. Exam Narrative: General: WD/WN male in NAD Heart: normal S1 and S2; IRRR Lungs: diminished at bases Abdomen: soft, nontender, nondistended, positive bowel sounds Extremities: no cyanosis or clubbing; trace edema Skin: warm and intact Objective Data Vital Signs Vital Signs: Vital Signs Temp Pulse Resp BP Pulse Ox 11/28/21 12:00 110 H 11/28/21 11:51 127 H 11/28/21 10:00 127 H 11/28/21 08:46 118 H 11/28/21 08:28 98 22 H 96 11/28/21 08:00 36.9 C 118 H 22 H 119/83 96 11/28/21 06:00 108 H 11/28/21 04:00 108 H 11/28/21 02:00 125 H 11/28/21 00:00 36.7 C 121 H 20 114/87 95 11/27/21 22:00 106 H 11/27/21 20:00 129 H 99 Intake/Output Intake/Output: Intake & Output 11/25/21 11/26/21 11/27/21 11/28/21 23:59 23:59 23:59 23:59 Intake Total 1904 1680 1002 1040 Output Total 750 600 900 800 Balance 1154 1080 102 240 Meds/Results Medications: Active Medications Generic Name Dose Route Start Last Admin Trade Name Freq PRN Reason Stop Dose Admin Acetaminophen 650 mg 11/23/21 22:41 11/23/21 22:52 Acetaminophen 325 Mg Tablet PO 650 mg Q6H PRN Administration Mild Pain (1-3) or Fever Al Hydrox/Mg Hydrox/Simethicone 30 ml 11/25/21 07:32 11/25/21 08:56 Mag Hydrox/Al Hydrox/Simeth 30 Ml Udc PO 30 ml Q6H PRN Administration Indigestion Albuterol 1 puff 11/23/21 02:00 11/28/21 14:12 Albuterol Sulfate (*Sp) Aerosol 1 Puff INHALATION 1 puff Q6HRT RITA Administration Apixaban 5 mg 11/23/21 09:00 11/28/21 08:47 Apixaban 5 Mg Tablet PO 5 mg Q12HR RITA Administration Benzonatate 200 mg 11/25/21 07:32 11/26/21 20:43 Benzonatate 100 Mg Capsule PO 200 mg TID PRN Administration cough Bisacodyl 5 mg 11/25/21 09:00 11/28/21 08:47 Bisacodyl 5 Mg Tablet Ec PO 5 mg QAM RITA Administration Calcium Carbonate 200 mg 11/25/21 07:32 Calcium Carbonate (Tums) 500 Mg (200 Mg Elemental) PO Q6H PRN Indigestion Carvedilol 6.25 mg 11/28/21 10:32
[2021-11-28 13:13] LABS: Glucose Point of Care 154 mg/dl (65-105)
[2021-11-28 13:32] LABS: INR 2.6; Prothrombin Time 26.7 Seconds (11.1-14.7)
--- NOTE | 2021-11-28 15:33 | WPDGIPROGNO ---
Progress Note: A&P Assessment and Plan (1) Elevated liver function tests: Code(s): R79.89 - Other specified abnormal findings of blood chemistry Status: Acute Assessment and Plan: given the dramatic jump in his liver enzymes, from entirely normal the day of admission to AST of 705 yesterday and over 1000 today. Likewise AST has jumped from normal to over 800, I would say this is all consistent with shock liver. His alkaline phosphatase by the way remains normal and bilirubin is only slightly elevated. I had discussion with the patient about shock liver. Explained that due to a drop in his blood pressure the transaminases increased dramatically but usually return to normal within a few days. He is not have a history of excessive alcohol use or other liver disease. 11/28 LFTs have dropped, AST from 1157 yesterday to 560 today. Discussed shock liver with him and told that this is a very typical course (2) Cardiogenic shock: Code(s): R57.0 - Cardiogenic shock Status: Acute Assessment and Plan: This has recovered with pressors, but is likely the explanation for his ischemic hepatopathy (3) Hypotension: Code(s): I95.9 - Hypotension, unspecified Status: Acute (4) Atrial fibrillation: Qualifiers: Atrial fibrillation type: unspecified Qualified Code(s): I48.91 - Unspecified atrial fibrillation Code(s): I48.91 - Unspecified atrial fibrillation Status: Acute Assessment and Plan: For this reason he has been started on amiodarone and is now on Eliquis. He has been in and out of atrial flutter (5) Common bile duct stricture: Code(s): K83.1 - Obstruction of bile duct Status: Acute Assessment and Plan: 11/27 there are notes going back to [address] Peters in [place] who had been replacing his biliary strictures every 6 months or so with plastic stents due to a recurrent stricture of the distal common bile duct. he in fact was going to have a follow-up ERCP today with possible replacement of his stents I do not believe that his current enzyme elevation is related to biliary duct problems, as he would have more up phosphatase elevation and bilirubin. Also he would have had gradual elevation of enzymes. 11/28 I told that when he is discharged he should contact Dr. Emelia Flynn for follow-up Subjective Date/time seen: 11/28/21 15:33 he has no complaints today. I told that his liver functions are improving as suspected. He states that the urine which was a little darker last few days is now clear again Review of Systems Review of Systems: All systems reviewed & are unremarkable except as noted in HPI and below Exam Const: General: cooperative and no acute distress Nutritional Appearance: obese Orientation/consciousness: patient oriented x3 Cardio: Rhythm: regular rhythm GI: Inspection: obesity Neuro: General: patient oriented x3 Objective Data Vital Signs Vital Signs: Vital Signs - 24 hr 11/27/21 16:00 11/27/21 18:00 11/27/21 20:00 Temperature 36.4 C L Pulse Rate 104 H 99 129 H Respiratory Rate 23 H Blood Pressure 118/92 H Pulse Oximetry 99 99 11/27/21 22:00 11/28/21 00:00 11/28/21 02:00 Temperature 36.7 C Pulse Rate 106 H 121 H 125 H Respiratory Rate 20 Blood Pressure 114/87 Pulse Oximetry 95 11/28/21 04:00 11/28/21 06:00 11/28/21 08:00 Temperature 36.9 C Pulse Rate 108 H 108 H 118 H Respiratory Rate 22 H Blood Pressure 119/83 Pulse Oximetry 96 11/28/21 08:28 11/28/21 08:46 11/28/21 10:00 Temperature Pulse Rate 98 118 H 127 H Respiratory Rate 22 H Blood Pressure Pulse Oximetry 96 11/28/21 11:51 11/28/21 12:00 11/28/21 14:00 Temperature Pulse Rate 127 H 116 H 111 H Respiratory Rate 25 H Blood Pressure 96/79 L Pulse Oximetry 98 Intake/Output Intake/Output: Intake & Output 11/25/21 11/26/21 11/27/21 11/28/21 23:59 23:59 23:59
--- NOTE | 2021-11-28 15:46 | PM.PNCARD ---
Progress Note: A&P Additional Plan Patient is more decompensated today because of underlying ischemic cardiomyopathy and persistent atrial flutter. When to give him some IV furosemide this afternoon and go ahead and switch his amiodarone back to IV since this did convert him to sinus rhythm over the weekend. Very low dose of carvedilol has been resumed by the pleat patternmaker. It is there desire to continue to hold his Entresto. When we can resume his Entresto I expect he will benefit significantly from that. GI oim consultant has determined that elevated transaminases is probably related to shock liver which I think is a correct assessment. Roberto Carlos Washington MD [facility] Subjective Date/time seen: Date of service: 11/28/21 15:46 Interval history: This is a pleasant 61-year-old man who sees Dr. Washington in the office because of coronary disease and a significant ischemic cardiomyopathy. He was hospitalized after being seen in my office yesterday by the nurse practitioner because of atrial flutter/RVR and hypotension. Date of service 11/24/2021: Low chest pain. Still short of breath. Feels like his blood sugars is low. Overall still feels poorly on amiodarone and dopamine Date of service 11/25/2021: Off of pressors but still short of breath. No chest pain. No significant edema. Date of service 09/25/2022: Patient feeling well this morning although at bed rest in the ICU. About 9:00 a.m. he converted to sinus rhythm on his IV amiodarone infusion. Date of service: Asymptomatic . COnverted back into A Flutter overnight but HR 90 s and no symptoms Date of service 09/27/2022: Patient is more short of breath today. States with minimal activity such as washing up P experiencing air hunger sitting up on the side of the bed at this time. Still in atrial flutter heart rate about 110. Has been receiving amiodarone but only daily instead of Q 12. Exam Const: General: comfortable and no acute distress Other: Pleasant gentleman seated in bed in the [facility] head of bed elevated about 45? no distress currently HENMT: Mouth: Yes moist mucous membranes Eyes: Sclera: sclerae normal and scleral abnormality Neck: Neck: supple Carotids: bruit Other: No obvious venous distention Resp: Effort & Inspection: normal respiratory effort Other: Patient has bibasilar rales today. Cardio: Rhythm: abnormal rhythm irregularly irregular GI: Auscultation: normal bowel sounds Skin: General skin exam: normal color Neuro: Cranial nerves: Yes Normal hearing present Cognition (Neuro): normal cognition Extrem: Other: Trivial pretibial edema Objective Data Vital Signs Vital Signs: Vital Signs - 24 hr 11/27/21 16:00 11/27/21 18:00 11/27/21 20:00 Temperature 36.4 C L Pulse Rate 104 H 99 129 H Respiratory Rate 23 H Blood Pressure 118/92 H Pulse Oximetry 99 99 11/27/21 22:00 11/28/21 00:00 11/28/21 02:00 Temperature 36.7 C Pulse Rate 106 H 121 H 125 H Respiratory Rate 20 Blood Pressure 114/87 Pulse Oximetry 95 11/28/21 04:00 11/28/21 06:00 11/28/21 08:00 Temperature 36.9 C Pulse Rate 108 H 108 H 118 H Respiratory Rate 22 H Blood Pressure 119/83 Pulse Oximetry 96 11/28/21 08:28 11/28/21 08:46 11/28/21 10:00 Temperature Pulse Rate 98 118 H 127 H Respiratory Rate 22 H Blood Pressure Pulse Oximetry 96 11/28/21 11:51 11/28/21 12:00 11/28/21 14:00 Temperature Pulse Rate 127 H 116 H 111 H Respiratory Rate 25 H Blood Pressure 96/79 L Pulse Oximetry 98 Intake/Output Intake/Output: Intake & Output 11/25/21 11/26/21 11/27/21 11/28/21 23:59 23:59 23:59 23:59 Intake Total 1904 1680 1002 400 Output Total 750 600 900 500 Balance 1154 1080 102 -100 Meds/Results Medications: Active Medications Generic Name Dose Route Start Last Admin Trade Name Freq PRN Reason Stop Dose Admin Acetaminophen 650 mg 11/23/21 22:41 11/23/21 22:52 Acetaminophen 325 Mg Tablet
[2021-11-28] MEDS: polyethylene glycoL 3350 17 GM POWD.PACK PO (16:10)
[2021-11-28] MEDS: AMIODARONE 360 MG/D5W 200 ML 360 MG/200 ML BAG 33.33 MG IV CONT (16:21)
[2021-11-28] MEDS: FUROSEMIDE INJ 40 MG/4 ML VIAL IV PUSH (16:21)
[2021-11-28 17:29] LABS: Glucose Point of Care 165 mg/dl (65-105)
[2021-11-28] MEDS: BENZONATATE 100 MG CAPSULE 200 MG PO (21:13)
[2021-11-28] MEDS: INSULIN GLARGINE (*BKC) 100 UNITS/ML 30 UNITS SUB-Q (21:14)
[2021-11-28] MEDS: AMIODARONE 360 MG/D5W 200 ML 360 MG/200 ML BAG 16.67 MG IV CONT (21:57)
[2021-11-28 22:11] LABS: Glucose Point of Care 188 mg/dl (65-105)
[2021-11-28] MEDS: guaiFENesin/DEXTROMETHORPHAN 10 ML UDC PO (22:49)
[2021-11-29] VITALS (29 sets, daily range): BP systolic 84–113; BP diastolic 63–94; PULSE 81–99; RESP 17–28; TEMP 36.4–37; O2SAT 75–96; BMI 32.8
[2021-11-29] MEDS: ALBUTEROL SULFATE (*SP) AEROSOL 1 PUFF INHALATION ×4 (01:55→19:41)
[2021-11-29 02:50] LABS: Albumin Level 4.3 g/dL (3.5-5.1); Alkaline Phosphatase 87 U/L (38-126); Anion Gap 23 mmol/L (8-16); Bilirubin,Total 3.4 mg/dL (0.2-1.3); Blood Urea Nitrogen 52 mg/dL (9-20); Calcium 7.9 mg/dL (8.4-10.2); Carbon Dioxide 14 mmol/L (22-30); Chloride 93 mmol/L (98-107); Estimated CRCL calculation 37 ml/min; Estimated Glomerular Filt Rate 26; Glucose 131 mg/dL (65-110); Magnesium 2.5 mg/dL (1.6-2.3); Potassium 5.7 mmol/L (3.4-5.0); Sodium 130 mmol/L (137-145)
[2021-11-29 03:03] LABS: Lactic Acid Reflex 8.5 mmol/L (0.7-2.1)
[2021-11-29] MEDS: guaiFENesin/DEXTROMETHORPHAN 10 ML UDC PO (03:06)
[2021-11-29 03:27] LABS: Alanine Aminotransferase 1324 U/L (4-50); Aspartate Amino Transferase 1423 U/L (17-59)
[2021-11-29 05:15] LABS: Hematocrit 53.5 % (42.0-52.0); Hemoglobin 15.5 g/dL (14.0-18.0); Mean Corpuscular Hemoglobin 21.8 pg (26-34); Mean Corpuscular Volume 75.2 fl (80-100); Mean Platelet Volume 9.3 fl (7.4-10.4); Platelet Count Result 342 k/mm3 (150-375); Red Blood Count 7.11 M/mm3 (4.6-6.20); White Blood Count 11.6 K/mm3 (4.5-10.0)
[2021-11-29 05:33] LABS: Reflex Lactic Acid Yes or No Add Lactic
[2021-11-29] MEDS: INSULIN HUMAN REGULAR (*BKC) 100 UNITS/ML 10 UNITS IV PUSH (05:44)
[2021-11-29] MEDS: CALCIUM GLUCONATE 1,000 MG/10 ML VIAL 1000 MG IV PUSH (05:44)
[2021-11-29] MEDS: DEXTROSE 50% 25 GM/50 ML SYRINGE IV PUSH (05:44)
[2021-11-29] MEDS: SODIUM BICARBONATE 8.4% 50 MEQ/50 ML SYRINGE 100 MEQ IV PUSH (05:45)
[2021-11-29] MEDS: NOREPINEPHRINE 8 MG/D5W 250 ML 8 MG/250 ML BAG 5.63 MG IV CONT (05:45)
[2021-11-29] MEDS: SODIUM POLYSTYRENE SULFONONATE 15 GM/60 ML BTL PO (06:12)
[2021-11-29 06:46] LABS: Basophils Absolute Auto 0.1 K/mm3 (0.0-0.1); Basophils Percent Auto 0.3 % (0.2-1.2); Eosinophils Percent Auto 0.1 % (0-4.4); Hematocrit 46.5 % (42.0-52.0); Hemoglobin 14.5 g/dL (14.0-18.0); Immature Granulocyte Absolute 0.09 K/mm3 (0.00-0.031); Immature Granulocyte Percent A 0.6 % (0-0.5); Lymphocytes Absolute Auto 1.11 K/mm3 (0.9-3.2); Mean Corpuscular HGB Conc 31.2 g/dl (32-36); Mean Corpuscular Volume 70.6 fl (80-100); Mean Platelet Volume 8.8 fl (7.4-10.4); Monocytes Absolute Auto 1.3 K/mm3 (0.1-0.6); Monocytes Percent Auto 8.3 % (2.6-8.5); Neutrophils Absolute Auto 13.2 K/mm3 (1.3-6.7); Neutrophils Percent Auto 83.7 % (45.5-73.1); Nucleated Red Blood Cells Perc 0.1 % (0.0-0.2); Platelet Count Result 291 k/mm3 (150-375); Red Blood Count 6.59 M/mm3 (4.6-6.20); Red Cell Distribution Width 20.5 % (11.5-14.5); White Blood Count 15.8 K/mm3 (4.5-10.0)
[2021-11-29 07:01] LABS: Ammonia 15 umol/L (9-30)
[2021-11-29 07:02] LABS: Prothrombin Time 45.4 Seconds (11.1-14.7)
[2021-11-29 07:19] LABS: Lactic Acid 4.7 mmol/L (0.7-2.1)
--- NOTE | 2021-11-29 07:34 | PC.NURSE ---
Pt became hypotensive at approximately 1am. Called and informed that the pt. was hypotensive. 0.9% saline 250ml bolus IV ordered. Fluid given as ordered no change in pts status. informed and ordered Dopmaine drip then change Dopamine drip to levophed drip, calcium carbonate IV push and othe r medications see DEC. Pt. stable with Levophed @ 3.
[2021-11-29 07:43] LABS: INR 5.1
[2021-11-29 07:49] LABS: Albumin Level 3.9 g/dL (3.5-5.1); Alkaline Phosphatase 74 U/L (38-126); Anion Gap 17 mmol/L (8-16); Bilirubin,Total 2.8 mg/dL (0.2-1.3); Blood Urea Nitrogen 60 mg/dL (9-20); Calcium 8.1 mg/dL (8.4-10.2); Carbon Dioxide 20 mmol/L (22-30); Chloride 92 mmol/L (98-107); Estimated CRCL calculation 38 ml/min; Estimated Glomerular Filt Rate 28; Glucose 191 mg/dL (65-110); Potassium 5.1 mmol/L (3.4-5.0); Sodium 129 mmol/L (137-145)
[2021-11-29] MEDS: DOPamine 400 MG/D5W 250 ML 400 MG/250 ML BAG 21.13 MG IV CONT ×2 (08:11→17:43)
[2021-11-29] MEDS: FERROUS SULFATE 324 MG TABLET PO ×2 (08:12→17:42)
[2021-11-29] MEDS: BISACODYL 5 MG TABLET EC PO (08:13)
[2021-11-29] MEDS: polyethylene glycoL 3350 17 GM POWD.PACK PO (08:14)
[2021-11-29] MEDS: PANTOPRAZOLE 40 MG TABLET PO ×2 (08:14→21:26)
[2021-11-29] MEDS: hetaSTARCH 6%/NACL 500 ML 250 ML IV CONT (08:44)
[2021-11-29 09:09] LABS: Procalcitonin 0.3 ng/mL
[2021-11-29 09:23] LABS: Alanine Aminotransferase 2769 U/L (4-50)
[2021-11-29 09:42] LABS: Glucose Point of Care 185 mg/dl (65-105)
[2021-11-29 09:53] LABS: Aspartate Amino Transferase 5103 U/L (17-59)
[2021-11-29] MEDS: AMIODARONE 360 MG/D5W 200 ML 360 MG/200 ML BAG 16.67 MG IV CONT ×2 (10:07→21:27)
[2021-11-29] MEDS: APIXABAN 2.5 MG TABLET PO ×2 (10:08→23:09)
[2021-11-29] MEDS: ALBUMIN HUMAN 25% 25 GM/100 ML 100 ML IVPB ×3 (11:23→23:08)
--- NOTE | 2021-11-29 11:41 | PM.PNCARD ---
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 Carvedilol and Entresto on hold because of hypotension. (3) Systolic heart failure, ACC/AHA stage D: Code(s): I50.20 - Unspecified systolic (congestive) heart failure Status: Acute (4) Hypotension: Code(s): I95.9 - Hypotension, unspecified Status: Acute Additional Plan This is a patient with decompensated ischemic heart failure and AFib with RVR. Yesterday patient received IV Lasix which dropped the blood pressure. Patient went back to AFib with RVR and started back on IV amiodarone. He converted to sinus rhythm with first-degree heart block. He was started also on dopamine because of low blood pressure. His liver enzymes and renal function are worse today most likely because of hypotension overnight. Continue current care and monitor liver function and renal function. I hope by tomorrow that we would see some improvement. If this patient does not improve by tomorrow maybe he will benefit from transfer to [facility] for advanced heart failure therapies. isha disla MD Subjective Date/time seen: 11/29/21 11:41 Interval history: This is a pleasant 61-year-old man who sees Dr. Washington in the office because of coronary disease and a significant ischemic cardiomyopathy. He was hospitalized after being seen in my office yesterday by the nurse practitioner because of atrial flutter/RVR and hypotension. Date of service 11/24/2021: Low chest pain. Still short of breath. Feels like his blood sugars is low. Overall still feels poorly on amiodarone and dopamine Date of service 11/25/2021: Off of pressors but still short of breath. No chest pain. No significant edema. Date of service 09/25/2022: Patient feeling well this morning although at bed rest in the ICU. About 9:00 a.m. he converted to sinus rhythm on his IV amiodarone infusion. Date of service: Asymptomatic . COnverted back into A Flutter overnight but HR 90 s and no symptoms Date of service 09/27/2022: Patient is more short of breath today. States with minimal activity such as washing up P experiencing air hunger sitting up on the side of the bed at this time. Still in atrial flutter heart rate about 110. Has been receiving amiodarone but only daily instead of Q 12. Date of service 11/29/2021-resting comfortably in bed. Converted to sinus rhythm overnight IV amiodarone. Started on a dopamine due to low blood pressure. Breathing better this morning. Review of Systems Review of Systems: All systems reviewed & are unremarkable except as noted in HPI and below Constitutional: Constitutional: Denies headache(s), Reports lethargy and Reports weakness Eyes: Eyes: Reports no additional eye complaints and Denies blurry vision ENT: Reports system reviewed and no additional complaints, except as documented, Reports Normal hearing present and Denies headache(s) Cardiovascular: Cardiovascular: Reports as per HPI, Denies chest pain and Reports dyspnea on exertion Respiratory: Respiratory: Reports dyspnea on exertion Gastrointestinal: Gastrointestinal: Reports no additional gastrointestinal complaints and Denies abdominal pain Genitourinary: Genitourinary: Reports no additional male genitourinary complaints Musculoskeletal: Musculoskeletal: Reports no additional musculoskeletal complaints Integumentary/Breasts: Skin/Breast: Reports system reviewed and no additional complaints, except as docu Neurologic: Reports Normal hearing present, Denies headache(s) and Reports weakness Psychiatric: Psychiatric: Denies anxiety Endocrine: Endocrine: Reports
--- NOTE | 2021-11-29 12:09 | PM.PNNEP ---
Progress Note: A&P Assessment and Plan (1) Acute kidney injury: Code(s): N17.9 - Acute kidney failure, unspecified Status: Acute Assessment and Plan: multifactorial etiology: hemodynamic instability/hypotension afib/aflutter contrast exposure [on 11/22 (from CT PE protocol) and on 11/23 (from CT C/A/P)] concurrent use of Entresto pre-renal factors(?) evaluation to date: renal ultrasound unremarkable urine electrolytes with prerenal azotemia (due to depressed EF most likely) urine eosinophils negative CPK normal continue attempts at optimizing/maintaining hemodynamics follow trend of repeat labs and UOP (2) Cardiogenic shock: Code(s): R57.0 - Cardiogenic shock Status: Acute Assessment and Plan: back on dopamine and levophed -- wean levophed complicated by severe ischemic cardiomyopathy, pulmonary HTN, and mild aortic stenosis holding coreg and entresto to allow for better hemodynamics diuretics therapy PRN Cardiology following (3) Atrial fibrillation with RVR: Code(s): I48.91 - Unspecified atrial fibrillation Status: Acute Assessment and Plan: suspect culprit for decompensated heart failure rate control strategy on anticoagulation (4) Type 2 diabetes mellitus: Code(s): E11.9 - Type 2 diabetes mellitus without complications Status: Chronic Assessment and Plan: follow accuchecks on Lantus and SSI Will continue to follow Subjective Date/time seen: 11/29/21 12:09 Issues with hypotension in the last 24 hours resulting in re-initation of dopamine gtt; however, he reports improvement in his respiratory status/breathing; creatinine worse by AM labs with associated drop in urine output overnight/this AM; no other acute issues/events noted. Exam Narrative: General: WD/WN male in NAD Heart: normal S1 and S2; IRRR Lungs: diminished at bases Abdomen: soft, nontender, nondistended, positive bowel sounds Extremities: no cyanosis or clubbing; trace edema Skin: no rash or nodules Objective Data Vital Signs Vital Signs: Vital Signs Temp Pulse Resp BP Pulse Ox 11/29/21 12:00 37.0 C 86 22 H 112/94 H 92 11/29/21 10:30 110/83 11/29/21 10:07 102/75 11/29/21 10:00 83 11/29/21 09:55 110/76 11/29/21 08:53 95 20 92 11/29/21 08:32 104/77 11/29/21 08:26 92 28 H 11/29/21 08:25 94 28 H 11/29/21 08:11 95 103/87 11/29/21 08:00 36.8 C 94 25 H 103/87 92 11/29/21 06:00 87 11/29/21 05:45 81 92/78 L 11/29/21 04:00 36.7 C 83 24 H 85/72 L 75 L 11/29/21 02:00 85 11/29/21 00:00 36.8 C 83 22 H 84/63 L 88 L 11/28/21 22:00 99 11/28/21 21:57 95 95/81 L 11/28/21 20:18 90 21 H 96 11/28/21 20:00 36.7 C 104 H 17 95/81 L 95 11/28/21 18:00 106 H 11/28/21 16:21 107 H 93/80 L 11/28/21 16:00 36.7 C 104 H 20 96/82 L 96 Intake/Output Intake/Output: Intake & Output 11/26/21 11/27/21 11/28/21 11/29/21 23:59 23:59 23:59 23:59 Intake Total 1680 1002 1040 1640 Output Total 600 900 800 20 Balance 1080 390 796 2704 Meds/Results Medications: Active Medications Generic Name Dose Route Start Last Admin Trade Name Freq PRN Reason Stop Dose Admin Acetaminophen 650 mg 11/23/21 22:41 11/23/21 22:52 Acetaminophen 325 Mg Tablet PO 650 mg Q6H PRN Administration Mild Pain (1-3) or Fever Al Hydrox/Mg Hydrox/Simethicone 30 ml 11/25/21 07:32 11/25/21 08:56 Mag Hydrox/Al Hydrox/Simeth 30 Ml Udc PO 30 ml Q6H PRN Administration Indigestion Albuterol 1 puff 11/23/21 02:00 11/29/21 14:48 Albuterol Sulfate (*Sp) Aerosol 1 Puff INHALATION 1 puff Q6HRT RITA Administration Apixaban 2.5 mg 11/29/21 09:00 11/29/21 10:08 Apixaban 2.5 Mg Tablet PO 2.5 mg Q12HR RITA Administration Benzonatate 200 mg 11/25/21 07:32 11/28/21 21:13 Benzonatate 100 Mg Capsul
--- NOTE | 2021-11-29 12:09 | P.PNNP_ITS ---
Progress Note: A&P Assessment and Plan (1) Acute kidney injury: Code(s): N17.9 - Acute kidney failure, unspecified Status: Acute Assessment and Plan: * multifactorial etiology: * hemodynamic instability/hypotension * afib/aflutter * contrast exposure [on 11/22 (from CT PE protocol) and on 11/23 (from CT C/A/P)] * concurrent use of Entresto * pre-renal factors(?) * evaluation to date: * renal ultrasound unremarkable * urine electrolytes with prerenal azotemia (due to depressed EF most likely) * urine eosinophils negative * CPK normal * continue attempts at optimizing/maintaining hemodynamics * follow trend of repeat labs and UOP (2) Cardiogenic shock: Code(s): R57.0 - Cardiogenic shock Status: Acute Assessment and Plan: * back on dopamine and levophed -- wean levophed * complicated by severe ischemic cardiomyopathy, pulmonary HTN, and mild aortic stenosis * holding coreg and entresto to allow for better hemodynamics * diuretics therapy PRN * Cardiology following (3) Atrial fibrillation with RVR: Code(s): I48.91 - Unspecified atrial fibrillation Status: Acute Assessment and Plan: * suspect culprit for decompensated heart failure * rate control strategy * on anticoagulation (4) Type 2 diabetes mellitus: Code(s): E11.9 - Type 2 diabetes mellitus without complications Status: Chronic Assessment and Plan: * follow accuchecks * on Lantus and SSI Will continue to follow Subjective Date/time seen: 11/29/21 12:09 Issues with hypotension in the last 24 hours resulting in re-initation of dopamine gtt; however, he reports improvement in his respiratory status/breathing; creatinine worse by AM labs with associated drop in urine output overnight/this AM; no other acute issues/events noted. Exam Narrative: General: WD/WN male in NAD Heart: normal S1 and S2; IRRR Lungs: diminished at bases Abdomen: soft, nontender, nondistended, positive bowel sounds Extremities: no cyanosis or clubbing; trace edema Skin: no rash or nodules Objective Data Vital Signs Vital Signs: Vital Signs Temp Pulse Resp BP Pulse Ox 11/29/21 12:00 37.0 C 86 22 H 112/94 H 92 11/29/21 10:30 110/83 11/29/21 10:07 102/75 11/29/21 10:00 83 02/24/22 09:55 110/76 11/29/21 08:53 95 20 92 11/29/21 08:32 104/77 11/29/21 08:26 92 28 H 11/29/21 08:25 94 28 H 11/29/21 08:11 95 103/87 11/29/21 08:00 36.8 C 94 25 H 103/87 92 11/29/21 06:00 87 11/29/21 05:45 81 92/78 L 11/29/21 04:00 36.7 C 83 24 H 85/72 L 75 L 11/29/21 02:00 85 11/29/21 00:00 36.8 C 83 22 H 84/63 L 88 L 11/28/21 22:00 99 11/28/21 21:57 95 95/81 L 11/28/21 20:18 90 21 H 96 11/28/21 20:00 36.7 C 104 H 17 95/81 L 95 11/28/21 18:00 106 H 11/28/21 16:21 107 H 93/80 L 11/28/21 16:00 36.7 C 104 H 20 96/82 L 96 Intake/Output Intake/Output: Intake & Output 11/26/21 11/27/21 11/28/21 11/29/21 23:59 23:59 23:59 23:59 Intake Total 1680 1002 1040 1640 Output Total 600 900 800 20 Balance 1080 388 789 5486
[2021-11-29 12:16] LABS: Glucose Point of Care 183 mg/dl (65-105)
[2021-11-29 13:13] LABS: Lactic Acid Reflex 2.3 mmol/L (0.7-2.1)
[2021-11-29 15:22] LABS: Chloride Rand Ur <20 mmol/L (32-290); Creatinine Random Urine 177 mg/dL (20-320)
--- NOTE | 2021-11-29 16:46 | WPDINTPN ---
Progress Note: A&P Assessment and Plan (1) Cardiogenic shock: Code(s): R57.0 - Cardiogenic shock Status: Acute Assessment and Plan: RESOLVED Patient has severe ischemic cardiomyopathy with LVEF of 30% with severe hypokinesia of apex anterior septal and anterior wall, RV is also dilated, by pulmonary hypertension and mild aortic stenosis. -His congestive heart failure got decompensated likely secondary to AFib with RVR. - 11/26: converted to normal sinus rhythm and is On PO Amiodarone -11/28/2021: Patient was in AFib RVR and was started on amiodarone infusion. Patient was hypotensive, lactic acid was 8.5, LFTs are elevated, creatinine increased. 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 Patient was given IV fluids cautiously along with albumin Hespan. -repeat lactic acid is 2.3 -continue dopamine ionotropic and vasopressor effect -Levophed has been weaned off -urine output improving -continue to monitor (2) Atrial fibrillation with RVR: Code(s): I48.91 - Unspecified atrial fibrillation Status: Acute Assessment and Plan: On 11/26/2021: Patient converted back to sinus rhythm, discussed with cardiology, patient no longer requires cardioversion -amiodarone infusion been turned off as patient is being started on p.o. amiodarone -11/27/2021 patient went back AFib, but rate controlled -11/28: A.fib RVR, started pt on low dose coreg, and received Lasix per Cardiology, which were held -11/29: Patient converted to sinus rhythm on amiodarone infusion with patient was hypotensive. Discuss with Cardiology, this is decompensated ischemic heart failure secondary to AFib RVR. Such patients do not tolerate being in AFib RVR. Recommends transferring to [facility] for advanced heart failure therapies, if he does not improve by tomorrow (3) Cough: Code(s): R05.9 - Cough, unspecified Status: Acute Assessment and Plan: Improvement with p.r.n. Robitussin DM and Tessalon Perles for symptomatic relief this is likely secondary to pulmonary edema. his WBCs normal, he is afebrile and his procalcitonin level was normal (4) Acute kidney injury: Code(s): N17.9 - Acute kidney failure, unspecified Status: Acute Assessment and Plan: likely secondary to hypoperfusion from decompensated heart failure and shock Creatinine was 1.9 this morning on 11/26 -11/27/2021: Creatinine 1.4 with improved urine output -11/29/2021: Creatinine is 2.4 -patient on dopamine and Levophed, to improve renal perfusion -renal ultrasound was unremarkable -appreciate Nephrology evaluation recommendation - continue monitor urine output electrolytes his CT of abdomen pelvis did not show any hydronephrosis (5) Coronary artery disease involving autologous artery coronary bypass graft: Code(s): I25.810 - Atherosclerosis of coronary artery bypass graft(s) without angina pectoris Status: Acute Assessment and Plan: Continue to hold statin and fenofibrate, Entresto. Discuss with Cardiology Dr. Washington -restarted Coreg on 11/28 which was held (6) Systolic heart failure, ACC/AHA stage D: Code(s): I50.20 - Unspecified systolic (congestive) heart failure Status: Acute Assessment and Plan: Echocardiogram 11/15/2021: EF of 30-35% with severe hypokinesis of the apex, anterolateral and anterior burnham. There is no thrombus visualized in the left ventricle echogenic structure located near the RV apex most likely calcified moderator band. RV chamber is moderately enlarged, RV systolic function is reduced. Mild pulmonary hypertension with RVSP of 41 mmHg. Mild aortic valve stenosis -cardiology is following the patient (7) Decompensated heart failure: Code(s): I50.9 - Heart failure, unspecified Status: Acute Assessment and Plan: Decompensated heart failure most likely related to cardiomyopathy and AFib RVR (8) Type 2 diabetes jessy
[2021-11-29 17:59] LABS: Basophils Absolute Auto 0.1 K/mm3 (0.0-0.1); Basophils Percent Auto 0.5 % (0.2-1.2); Eosinophils Absolute Auto 0.2 K/mm3 (0-0.3); Eosinophils Percent Auto 1.9 % (0-4.4); Hematocrit 46.3 % (42.0-52.0); Hemoglobin 13.9 g/dL (14.0-18.0); Immature Granulocyte Absolute 0.05 K/mm3 (0.00-0.031); Immature Granulocyte Percent A 0.5 % (0-0.5); Lymphocytes Absolute Auto 0.87 K/mm3 (0.9-3.2); Lymphocytes Percent Auto 8.6 % (18.3-44.2); Mean Corpuscular Hemoglobin 21.7 pg (26-34); Mean Corpuscular Volume 72.1 fl (80-100); Mean Platelet Volume 9.2 fl (7.4-10.4); Monocytes Absolute Auto 0.6 K/mm3 (0.1-0.6); Monocytes Percent Auto 5.7 % (2.6-8.5); Neutrophils Absolute Auto 8.3 K/mm3 (1.3-6.7); Neutrophils Percent Auto 82.8 % (45.5-73.1); Platelet Count Result 249 k/mm3 (150-375); Red Blood Count 6.42 M/mm3 (4.6-6.20); Red Cell Distribution Width 20.5 % (11.5-14.5); White Blood Count 10.1 K/mm3 (4.5-10.0)
[2021-11-29] MEDS: INSULIN ASPART (*BKC) 100 UNITS/ML SUB-Q (18:01)
[2021-11-29 18:07] LABS: Glucose Point of Care 263 mg/dl (65-105)
[2021-11-29 18:10] LABS: INR 3.7; Prothrombin Time 35.9 Seconds (11.1-14.7)
[2021-11-29 18:14] LABS: Albumin Level 3.8 g/dL (3.5-5.1); Alkaline Phosphatase 79 U/L (38-126); Anion Gap 13 mmol/L (8-16); Bilirubin,Total 1.9 mg/dL (0.2-1.3); Blood Urea Nitrogen 68 mg/dL (9-20); Calcium 7.8 mg/dL (8.4-10.2); Carbon Dioxide 22 mmol/L (22-30); Chloride 91 mmol/L (98-107); Estimated CRCL calculation 42 ml/min; Estimated Glomerular Filt Rate 30; Glucose 246 mg/dL (65-110); Potassium 4.4 mmol/L (3.4-5.0); Sodium 126 mmol/L (137-145)
[2021-11-29 19:21] LABS: Alanine Aminotransferase 3381 U/L (4-50); Aspartate Amino Transferase 6323 U/L (17-59)
[2021-11-29] MEDS: INSULIN GLARGINE (*BKC) 100 UNITS/ML 30 UNITS SUB-Q (21:28)
[2021-11-29 21:45] LABS: Glucose Point of Care 288 mg/dl (65-105)
[2021-11-30] VITALS (19 sets, daily range): BP systolic 100–115; BP diastolic 81–94; PULSE 85–147; RESP 18–30; TEMP 36.2–36.9; O2SAT 94–96
[2021-11-30 00:50] LABS: Glucose Point of Care 175 mg/dl (65-105)
[2021-11-30] MEDS: ALBUTEROL SULFATE (*SP) AEROSOL 1 PUFF INHALATION ×4 (01:49→21:01)
[2021-11-30] MEDS: ALBUMIN HUMAN 25% 25 GM/100 ML 100 ML IVPB (05:47)
[2021-11-30] MEDS: DOPamine 400 MG/D5W 250 ML 400 MG/250 ML BAG 21.13 MG IV CONT ×2 (06:12→16:56)
--- NOTE | 2021-11-30 06:38 | WPDGIPROGNO ---
Progress Note: A&P Assessment and Plan (1) Elevated liver function tests: Code(s): R79.89 - Other specified abnormal findings of blood chemistry Status: Acute Assessment and Plan: given the dramatic jump in his liver enzymes, from entirely normal the day of admission to AST of 705 yesterday and over 1000 today. Likewise AST has jumped from normal to over 800, I would say this is all consistent with shock liver. His alkaline phosphatase by the way remains normal and bilirubin is only slightly elevated. I had discussion with the patient about shock liver. Explained that due to a drop in his blood pressure the transaminases increased dramatically but usually return to normal within a few days. He is not have a history of excessive alcohol use or other liver disease. 11/28 LFTs have dropped, AST from 1157 yesterday to 560 today. Discussed shock liver with him and told that this is a very typical course 11/30 dramatic increase in LFTs yesterday due to recurrence of hypotension the evening before. Hopefully this morning's levels will be lower. We may also need to consider treating his elevated INR. We will need to balance this vis-a-vis his Eliquis (2) Cardiogenic shock: Code(s): R57.0 - Cardiogenic shock Status: Acute Assessment and Plan: This has recovered with pressors, but is likely the explanation for his ischemic hepatopathy. His congestive heart failure is fragile. The there are notes that consideration is given to trying to transfer him towards [facility] (3) Hypotension: Code(s): I95.9 - Hypotension, unspecified Status: Acute Assessment and Plan: currently 106/84 (4) Atrial fibrillation: Qualifiers: Atrial fibrillation type: unspecified Qualified Code(s): I48.91 - Unspecified atrial fibrillation Code(s): I48.91 - Unspecified atrial fibrillation Status: Acute Assessment and Plan: For this reason he has been started on amiodarone and is now on Eliquis. He has been in and out of atrial flutter (5) Common bile duct stricture: Code(s): K83.1 - Obstruction of bile duct Status: Acute Assessment and Plan: 11/27 there are notes going back to [address] Peters in [place] who had been replacing his biliary strictures every 6 months or so with plastic stents due to a recurrent stricture of the distal common bile duct. he in fact was going to have a follow-up ERCP today with possible replacement of his stents I do not believe that his current enzyme elevation is related to biliary duct problems, as he would have more up phosphatase elevation and bilirubin. Also he would have had gradual elevation of enzymes. 11/28 I told that when he is discharged he should contact Dr. Peters for follow-up. 11/29 I again reassured him that this bile duct and stent is not the reason for his marked elevation of liver enzymes at this time Subjective Date/time seen: 11/30/21 06:38 This morning he appears fairly comfortable. There is no evidence of bleeding which is a concern because in addition to Eliquis, he is also and I coagulated due to his shock liver. The INR jumped up to 5.1 yesterday then came down to 3.7. That, in addition to the dramatic jump in his LFTs to AST over 3 ALT over 3300, likely due to a recurrence of his hypotension, indicates that he has very fragile liver in terms of ischemic hepatopathy. He states that he never has had liver problems before except for several years ago when he had a problem with with his lungs. He has not seen any bleeding such as nose bleed and his urine is clear Interval history: This is a pleasant 61-year-old man with coronary disease and a significant ischemic cardiomyopathy. He was hospitalized because of atrial flutter/RVR and hypotension. Patient was started amiodarone and dopamine. 11/29/2021: Overnight patient was hypotensive, wheezing, white blood cell count was 15.8 and lactic a
[2021-11-30] MEDS: AMIODARONE 360 MG/D5W 200 ML 360 MG/200 ML BAG 16.67 MG IV CONT ×2 (07:56→15:17)
[2021-11-30] MEDS: INSULIN ASPART (*BKC) 100 UNITS/ML SUB-Q ×3 (08:04→16:54)
[2021-11-30] MEDS: FERROUS SULFATE 324 MG TABLET PO ×2 (08:06→16:56)
[2021-11-30] MEDS: APIXABAN 2.5 MG TABLET PO (08:07)
[2021-11-30] MEDS: BISACODYL 5 MG TABLET EC PO (08:07)
[2021-11-30] MEDS: PANTOPRAZOLE 40 MG TABLET PO ×2 (08:08→20:50)
[2021-11-30 08:30] LABS: Basophils Absolute Auto 0.1 K/mm3 (0.0-0.1); Basophils Percent Auto 0.6 % (0.2-1.2); Eosinophils Absolute Auto 0.2 K/mm3 (0-0.3); Eosinophils Percent Auto 2.4 % (0-4.4); Hematocrit 44.9 % (42.0-52.0); Immature Granulocyte Absolute 0.04 K/mm3 (0.00-0.031); Immature Granulocyte Percent A 0.4 % (0-0.5); Lymphocytes Absolute Auto 1.21 K/mm3 (0.9-3.2); Lymphocytes Percent Auto 12.1 % (18.3-44.2); Mean Corpuscular HGB Conc 31.2 g/dl (32-36); Mean Corpuscular Hemoglobin 22.1 pg (26-34); Mean Corpuscular Volume 70.9 fl (80-100); Mean Platelet Volume 9.1 fl (7.4-10.4); Monocytes Absolute Auto 0.8 K/mm3 (0.1-0.6); Monocytes Percent Auto 7.8 % (2.6-8.5); Neutrophils Absolute Auto 7.7 K/mm3 (1.3-6.7); Neutrophils Percent Auto 76.7 % (45.5-73.1); Platelet Count Result 204 k/mm3 (150-375); Red Blood Count 6.33 M/mm3 (4.6-6.20); Red Cell Distribution Width 20.3 % (11.5-14.5)
[2021-11-30 08:42] LABS: INR 3.3; Prothrombin Time 32.7 Seconds (11.1-14.7)
[2021-11-30 08:43] LABS: Partial Thromboplastin Time 32.9 SECONDS (22.3-36.8)
[2021-11-30 08:45] LABS: Lactic Acid Reflex 2.6 mmol/L (0.7-2.1)
[2021-11-30 09:04] LABS: Glucose Point of Care 205 mg/dl (65-105)
[2021-11-30 09:58] LABS: Albumin Level 4.3 g/dL (3.5-5.1); Alkaline Phosphatase 73 U/L (38-126); Anion Gap 17 mmol/L (8-16); Bilirubin,Total 2.3 mg/dL (0.2-1.3); Blood Urea Nitrogen 72 mg/dL (9-20); Calcium 7.9 mg/dL (8.4-10.2); Carbon Dioxide 23 mmol/L (22-30); Chloride 91 mmol/L (98-107); Estimated CRCL calculation 50 ml/min; Estimated Glomerular Filt Rate 38; Glucose 182 mg/dL (65-110); Lipase 177 U/L (23-300); Magnesium 2.5 mg/dL (1.6-2.3); Phosphorus 4.3 mg/dL (2.5-4.5); Sodium 131 mmol/L (137-145)
[2021-11-30 11:27] LABS: Reflex Lactic Acid Yes or No Add Lactic
[2021-11-30 11:37] LABS: Alanine Aminotransferase 2561 U/L (4-50); Aspartate Amino Transferase 2083 U/L (17-59)
--- NOTE | 2021-11-30 11:48 | PM.PNNEP ---
Progress Note: A&P Assessment and Plan (1) Acute kidney injury: Code(s): N17.9 - Acute kidney failure, unspecified Status: Acute Assessment and Plan: multifactorial etiology: hemodynamic instability/hypotension afib/aflutter contrast exposure [on 11/22 (from CT PE protocol) and on 11/23 (from CT C/A/P)] concurrent use of Entresto pre-renal factors(?) evaluation to date: renal ultrasound unremarkable urine electrolytes with prerenal azotemia (due to depressed EF most likely) urine eosinophils negative CPK normal once again, creatinine fluctuating... continue attempts at optimizing/maintaining hemodynamics follow trend of repeat labs and UOP (2) Cardiogenic shock: Code(s): R57.0 - Cardiogenic shock Status: Acute Assessment and Plan: back on dopamine and levophed -- wean levophed complicated by severe ischemic cardiomyopathy, pulmonary HTN, and mild aortic stenosis holding coreg and entresto to allow for better hemodynamics diuretics therapy PRN Cardiology following (3) Atrial fibrillation with RVR: Code(s): I48.91 - Unspecified atrial fibrillation Status: Acute Assessment and Plan: suspect culprit for decompensated heart failure rate control strategy on anticoagulation Cardiology following -- considering transfer to [facility] to consider other interventions (i.e. ablation) that are unable here at [place] (4) Type 2 diabetes mellitus: Code(s): E11.9 - Type 2 diabetes mellitus without complications Status: Chronic Assessment and Plan: follow accuchecks on Lantus and SSI Will continue to follow Subjective Date/time seen: 11/30/21 11:48 Remain on dopamine gtt as well as dopamine gtt at the time of my visit; renal function/creatinine has once again improved with current interventions; overall, patient states he feel better in the last 24 hours; no apparent distress/complaints currently aside from poor oral intake/appetite. Exam Narrative: General: WD/WN male in NAD Heart: normal S1 and S2; IRRR Lungs: diminished at bases Abdomen: soft, nontender, nondistended, positive bowel sounds Extremities: no cyanosis or clubbing; trace edema Skin: warm and dry Objective Data Vital Signs Vital Signs: Vital Signs Temp Pulse Resp BP Pulse Ox 11/30/21 09:06 115 H 24 H 95 11/30/21 08:08 103 H 28 H 11/30/21 06:00 101 H 11/30/21 04:00 36.9 C 90 18 106/84 95 11/30/21 01:57 95 11/30/21 01:49 93 23 H 11/30/21 00:00 36.2 C L 97 23 H 111/87 96 11/29/21 22:00 96 11/29/21 21:27 111/85 11/29/21 20:00 36.5 C 97 21 H 113/83 96 11/29/21 19:42 99 22 H 95 11/29/21 18:00 95 11/29/21 17:43 109/87 11/29/21 16:00 36.4 C 89 24 H 104/85 94 11/29/21 14:50 87 20 11/29/21 14:48 86 17 11/29/21 14:11 111/90 11/29/21 14:00 86 Intake/Output Intake/Output: Intake & Output 11/27/21 11/28/21 11/29/21 11/30/21 23:59 23:59 23:59 23:59 Intake Total 1002 1040 2805 600 Output Total 900 800 545 700 Balance 516 119 4094 -100 Meds/Results Medications: Active Medications Generic Name Dose Route Start Last Admin Trade Name Freq PRN Reason Stop Dose Admin Acetaminophen 650 mg 11/23/21 22:41 11/23/21 22:52 Acetaminophen 325 Mg Tablet PO 650 mg Q6H PRN Administration Mild Pain (1-3) or Fever Al Hydrox/Mg Hydrox/Simethicone 30 ml 11/25/21 07:32 11/25/21 08:56 Mag Hydrox/Al Hydrox/Simeth 30 Ml Udc PO 30 ml Q6H PRN Administration Indigestion Albuterol 1 puff 11/23/21 02:00 11/30/21 08:08 Albuterol Sulfate (*Sp) Aerosol 1 Puff INHALATION 1 puff Q6HRT RITA Administration Apixaban 5 mg 11/30/21 21:00 Apixaban 5 Mg Tablet PO Q12HR RITA Benzonatate 200 mg 11/25/21 07:32 11/28/21 21:13 Benzonatate 100 Mg Capsule PO 200 mg TID PRN Administration cough
--- NOTE | 2021-11-30 11:48 | P.PNNP_ITS ---
Progress Note: A&P Assessment and Plan (1) Acute kidney injury: Code(s): N17.9 - Acute kidney failure, unspecified Status: Acute Assessment and Plan: * multifactorial etiology: * hemodynamic instability/hypotension * afib/aflutter * contrast exposure [on 11/22 (from CT PE protocol) and on 11/23 (from CT C/A/P)] * concurrent use of Entresto * pre-renal factors(?) * evaluation to date: * renal ultrasound unremarkable * urine electrolytes with prerenal azotemia (due to depressed EF most likely) * urine eosinophils negative * CPK normal * once again, creatinine fluctuating... * continue attempts at optimizing/maintaining hemodynamics * follow trend of repeat labs and UOP (2) Cardiogenic shock: Code(s): R57.0 - Cardiogenic shock Status: Acute Assessment and Plan: * back on dopamine and levophed -- wean levophed * complicated by severe ischemic cardiomyopathy, pulmonary HTN, and mild aortic stenosis * holding coreg and entresto to allow for better hemodynamics * diuretics therapy PRN * Cardiology following (3) Atrial fibrillation with RVR: Code(s): I48.91 - Unspecified atrial fibrillation Status: Acute Assessment and Plan: * suspect culprit for decompensated heart failure * rate control strategy * on anticoagulation * Cardiology following -- considering transfer to [facility] to consider other interventions (i.e. ablation) that are unable here at [place] (4) Type 2 diabetes mellitus: Code(s): E11.9 - Type 2 diabetes mellitus without complications Status: Chronic Assessment and Plan: * follow accuchecks * on Lantus and SSI Will continue to follow Subjective Date/time seen: 11/30/21 11:48 Remain on dopamine gtt as well as dopamine gtt at the time of my visit; renal function/creatinine has once again improved with current interventions; overall, patient states he feel better in the last 24 hours; no apparent distress/complaints currently aside from poor oral intake/appetite. Exam Narrative: General: WD/WN male in NAD Heart: normal S1 and S2; IRRR Lungs: diminished at bases Abdomen: soft, nontender, nondistended, positive bowel sounds Extremities: no cyanosis or clubbing; trace edema Skin: warm and dry Objective Data Vital Signs Vital Signs: Vital Signs Temp Pulse Resp BP Pulse Ox 11/30/21 09:06 115 H 24 H 95 02/25/22 08:08 103 H 28 H 11/30/21 06:00 101 H 11/30/21 04:00 36.9 C 90 18 106/84 95 11/30/21 01:57 95 11/30/21 01:49 93 23 H 11/30/21 00:00 36.2 C L 97 23 H 111/87 96 11/29/21 22:00 96 11/29/21 21:27 111/85 11/29/21 20:00 36.5 C 97 21 H 113/83 96 11/29/21 19:42 99 22 H 95 11/29/21 18:00 95 11/29/21 17:43 109/87 11/29/21 16:00 36.4 C 89 24 H 104/85 94 11/29/21 14:50 87 20 11/29/21 14:48 86 17 11/29/21 14:11 111/90 11/29/21 14:00 86 Intake/Output Intake/Output: Intake & Output 11/27/21 11/28/21 11/29/21 11/30/21 23:59 23:59 23:59 23:59 Intake Total 1002 1040 2805 600 Output Total 900 800 545 700 Balance 995 375 4171 -100 Meds/Results Medications:
[2021-11-30 11:53] LABS: Lactic Acid 3.6 mmol/L (0.7-2.1)
--- NOTE | 2021-11-30 12:09 | PCFNICU ---
ICU Rounding Note: Pt current nutrition is Heart Healthy, FR 1200 ml daily with Ensure Compact BID. Last recorded weight is 107.2 kg, down from 112.7 kg on admit. Bowel Motility: +BM reported 11/29 Labs Reviewed:ALT 2561,AST 2083, BUN 72, Cr 1.8, GFR 38, Na 131, Glu 182 Meds Noted:Protonix, Dulcolax, Dopamine, Nexterone, NovoLog, Lantus. Skin: WNL Additional Notes: Patient was able to tolerate ensure drink this morning. Ensure compact providing an additional 220 kcals and 9 gms protein. Fluid Restriction remains 1200 ml, Na 131 today up from 129. Oral intake has been poor for the past couple of days. PO intake encouraged, agree with diet orders. Following daily in ICU rounds. RD will monitor every 3 days.
--- NOTE | 2021-11-30 12:22 | WPDINTPN ---
Progress Note: A&P Assessment and Plan (1) Cardiogenic shock: Code(s): R57.0 - Cardiogenic shock Status: Acute Assessment and Plan: Patient has severe ischemic cardiomyopathy with LVEF of 30% with severe hypokinesia of apex anterior septal and anterior wall, RV is also dilated, by pulmonary hypertension and mild aortic stenosis. -His congestive heart failure got decompensated likely secondary to AFib with RVR. - 11/26: converted to normal sinus rhythm and is On PO Amiodarone -11/28/2021: Patient was in AFib RVR and was started on amiodarone infusion. Patient was hypotensive, lactic acid was 8.5, LFTs are elevated, creatinine increased. 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 Patient was given IV fluids cautiously along with albumin Hespan. -repeat lactic acid is 2.6 this morning (8.5 on 11/29) -patient also has shock liver -continue dopamine -Levophed has been weaned off -urine output improving -continue to monitor (2) Atrial fibrillation with RVR: Code(s): I48.91 - Unspecified atrial fibrillation Status: Acute Assessment and Plan: On 11/26/2021: Patient converted back to sinus rhythm, discussed with cardiology, patient no longer requires cardioversion -amiodarone infusion been turned off as patient is being started on p.o. amiodarone -11/27/2021 patient went back AFib, but rate controlled -11/28: A.fib RVR, started pt on low dose coreg, and received Lasix per Cardiology, which were held -11/29: Patient converted to sinus rhythm on amiodarone infusion with patient was hypotensive. -11/29 discussed with Cardiology, this is decompensated ischemic heart failure secondary to AFib RVR. Such patients do not tolerate being in AFib RVR. Recommends transferring to [facility] for advanced heart failure therapies, if he does not improve quite 11/30 Patient and his stated that he has had ablation for his atrial fibrillation in the past at [facility], and his cigarette machine operator was Dr. Vaughn Will further discuss with cardiology regarding their plan (3) Cough: Code(s): R05.9 - Cough, unspecified Status: Acute Assessment and Plan: Improvement with p.r.n. Robitussin DM and Tessalon Perles for symptomatic relief this is likely secondary to pulmonary edema. his WBCs normal, he is afebrile and his procalcitonin level was normal (4) Acute kidney injury: Code(s): N17.9 - Acute kidney failure, unspecified Status: Acute Assessment and Plan: likely secondary to hypoperfusion from decompensated heart failure and shock Creatinine was 1.9 this morning on 11/26 -11/27/2021: Creatinine 1.4 with improved urine output -11/29/2021: Creatinine is 2.4 -11/30: Creatinine down to 1.80 -patient on dopamine -renal ultrasound was unremarkable -appreciate Nephrology evaluation recommendation - continue monitor urine output electrolytes (5) Coronary artery disease involving autologous artery coronary bypass graft: Code(s): I25.810 - Atherosclerosis of coronary artery bypass graft(s) without angina pectoris Status: Acute Assessment and Plan: Continue to hold statin and fenofibrate, Coreg, Entresto. Discuss with Cardiology Dr. Washington - (6) Systolic heart failure, ACC/AHA stage D: Code(s): I50.20 - Unspecified systolic (congestive) heart failure Status: Acute Assessment and Plan: Echocardiogram 11/15/2021: EF of 30-35% with severe hypokinesis of the apex, anterolateral and anterior bunrham. There is no thrombus visualized in the left ventricle echogenic structure located near the RV apex most likely calcified moderator band. RV chamber is moderately enlarged, RV systolic function is reduced. Mild pulmonary hypertension with RVSP of 41 mmHg. Mild aortic valve stenosis -cardiology is following the patient (7) Decompensated heart failure: Code(s): I50.9 - Heart failure, unspecified
[2021-11-30 12:26] LABS: Glucose Point of Care 241 mg/dl (65-105)
--- NOTE | 2021-11-30 14:56 | PM.PNCARD ---
Progress Note: A&P Assessment and Plan (1) Atrial fibrillation with RVR: Code(s): I48.91 - Unspecified atrial fibrillation Status: Acute Assessment and Plan: Back in atrial fibrillation on amiodarone drip. Rate is reasonably controlled. Continue amiodarone drip for now. He is anticoagulated with apixaban. Consider transfer to [facility] for EP c/s. Dr. Washington to discuss with patient. (2) Coronary artery disease involving autologous artery coronary bypass graft: Code(s): I25.810 - Atherosclerosis of coronary artery bypass graft(s) without angina pectoris Status: Acute Assessment and Plan: Continue statin. (3) Systolic heart failure, ACC/AHA stage D: Code(s): I50.20 - Unspecified systolic (congestive) heart failure Status: Acute Assessment and Plan: History of ischemic cardiomyopathy. Entered the hospital and decompensated heart failure. Difficult to diurese because hypotension. On dopamine drip now - Resume furosemide and entresto today since BP is being supported. (4) Hypotension: Code(s): I95.9 - Hypotension, unspecified Status: Acute Assessment and Plan: On dopamine drip currently, BP stable Subjective Date/time seen: 11/30/21 14:56 Interval history: This is a pleasant 61-year-old man who sees Dr. Washington in the office because of coronary disease and a significant ischemic cardiomyopathy. He was hospitalized after being seen in my office yesterday by the nurse practitioner because of atrial flutter/RVR and hypotension. Date of service 11/24/2021: Low chest pain. Still short of breath. Feels like his blood sugars is low. Overall still feels poorly on amiodarone and dopamine Date of service 11/25/2021: Off of pressors but still short of breath. No chest pain. No significant edema. Date of service 09/25/2022: Patient feeling well this morning although at bed rest in the ICU. About 9:00 a.m. he converted to sinus rhythm on his IV amiodarone infusion. Date of service: Asymptomatic . COnverted back into A Flutter overnight but HR 90 s and no symptoms Date of service 09/27/2022: Patient is more short of breath today. States with minimal activity such as washing up P experiencing air hunger sitting up on the side of the bed at this time. Still in atrial flutter heart rate about 110. Has been receiving amiodarone but only daily instead of Q 12. Date of service 11/29/2021-resting comfortably in bed. Converted to sinus rhythm overnight IV amiodarone. Started on a dopamine due to low blood pressure. Breathing better this morning. Date of service 11/30/2021: Reverted back to atrial fibrillation this morning around 5:00 a.m.. Rate is mostly in the low 100s. He does feel more short of breath today. He is visibly dyspneic with conversation. Review of Systems Review of Systems: All systems reviewed & are unremarkable except as noted in HPI and below Constitutional: Constitutional: Denies headache(s), Reports lethargy and Reports weakness Eyes: Eyes: Reports no additional eye complaints and Denies blurry vision ENT: Reports system reviewed and no additional complaints, except as documented, Reports Normal hearing present and Denies headache(s) Cardiovascular: Cardiovascular: Reports as per HPI, Denies chest pain and Reports dyspnea on exertion Respiratory: Respiratory: Reports dyspnea on exertion Gastrointestinal: Gastrointestinal: Reports no additional gastrointestinal complaints and Denies abdominal pain Genitourinary: Genitourinary: Reports no additional male genitourinary complaints Musculoskeletal: Musculoskeletal: Reports no additional musculoskeletal complaints Integumentary/Breasts: Skin/Breast: Reports system reviewed and no additional complaints, except as docu Neurologic: Reports Normal hearing present, Denies headache(s) and Reports weakness Psychiatric: Psychiatric: Denies anxiety Endocrine: Endocrine: Reports no ad
[2021-11-30] MEDS: FUROSEMIDE INJ 40 MG/4 ML VIAL IV PUSH (16:59)
[2021-11-30 17:09] LABS: Glucose Point of Care 211 mg/dl (65-105)
--- NOTE | 2021-11-30 19:29 | ECG_ITS ---
Measurements Intervals [place] Rate: 147 P: -3 AK: 154 QRS: 136 QRSD: 193 T: -37 QT: 362 QTc: 567 Interpretive Statements ATRIAL FLUTTER/TACHYCARDIA WITH RAPID VENTRICULAR RESPONSE LEFT BUNDLE BRANCH BLOCK ABNORMAL ECG Electronically Signed On 12-01-2021 14:06:47 PHYSICIAN EXTENDER by Elmo Khoury D.O.
--- NOTE | 2021-11-30 19:46 | P.PNCROSS_ITS ---
Event Note Event Note Event Note: 11/30/2021 at 7:35 p.m. Nursing staff called me as the patient had been in the white complex tachycardia for over 30 minutes. The patient was asymptomatic with the tachycardia and blood pressures were stable 102/85. Patient has known EF of 30% and is pending transferred to [place] for the advanced heart failure therapy and possible left ventricular assist device (per nursing report). I recommended an amiodarone bolus but requested nursing staff to notify Cardiology and chief sustainability officer. Coding Analyst agreed to amiodarone bolus 150 mg. The patient was already on amiodarone infusion. I reviewed the patient's EKG which demonstrated atrial flutter with a rate of 147 with a left bundle-branch block. Within 3 minutes of starting the amiodarone bolus patient had converted back to sinus rhythm with a heart rate of 93. The patient's respiratory rate was around 30. His respir atory rate earlier in the day of in between 24 and 28. Patient is on 5 L nasal cannula maintaining oxygen saturations of 92%. Patient is chronically ill- appearing obese, Camacho catheter in place with dark cloudy urine present.
[2021-11-30] MEDS: AMIODARONE 150 MG/D5W 100 ML 150 MG/100 ML BAG 600 MG IV CONT (19:56)
[2021-11-30] MEDS: guaiFENesin/DEXTROMETHORPHAN 10 ML UDC PO (20:17)
--- NOTE | 2021-11-30 20:25 | PC.NURSE ---
Pt. became tachycardic HR 147 bpm EKG performed that revealed Sinus tachycardia with A Flutter. Dr. Kamara called and informed that the pt. was tachycardic currently recieving dopamine @ 3 and amniodorine @ 1 both IV. Amniodorone 150mg/100ml ordered to give IV Bolus. Medication given as ordered patient remained ao x 3 with complaints of being hot. When bolus was completed patient converted to Sinus rhythm HR in upper 80's bp stable 110/87. [employer] systems protection technician Dr. Lelo cheung. Dr. Dotson called back and was updated on pts status; ekg performed Sinus Tachycardia with A Flutter, Amniodorone bolus ordered by Dr. Kamara and given as ordered; pt remains on dopamine drip @ 3 and amniodorone drip at 1. . Will continue to monitor patient closely for any changes and inform doctor for appropiate orders.
[2021-11-30] MEDS: APIXABAN 5 MG TABLET PO (20:50)
[2021-11-30] MEDS: INSULIN GLARGINE (*BKC) 100 UNITS/ML 30 UNITS SUB-Q (20:51)
[2021-11-30] MEDS: SACUBITRIL/VALSARTAN 24-26 MG TABLET 1 TAB PO (20:56)
[2021-11-30 21:00] LABS: Glucose Point of Care 176 mg/dl (65-105)
[2021-12-01] VITALS (12 sets, daily range): BP systolic 91–108; BP diastolic 68–86; PULSE 83–104; RESP 16–24; TEMP 36.4–36.9; O2SAT 93–95
[2021-12-01] MEDS: guaiFENesin/DEXTROMETHORPHAN 10 ML UDC PO ×5 (00:22→17:03)
--- NOTE | 2021-12-01 02:08 | PCRCNOTE ---
Albuterol inhaler scheduled for 02:00 on 12/01/2021 not administered. Pt has been unable to sleep for multiple days and was asleep at this time. Nurse will call RT if pt wakes up within window of time for treatment.
[2021-12-01] MEDS: AMIODARONE 360 MG/D5W 200 ML 360 MG/200 ML BAG 33.33 MG IV CONT ×3 (03:22→15:26)
[2021-12-01 04:27] LABS: Basophils Absolute Auto 0.1 K/mm3 (0.0-0.1); Basophils Percent Auto 0.5 % (0.2-1.2); Eosinophils Percent Auto 0.4 % (0-4.4); Hematocrit 46.1 % (42.0-52.0); Hemoglobin 14.3 g/dL (14.0-18.0); Immature Granulocyte Absolute 0.05 K/mm3 (0.00-0.031); Immature Granulocyte Percent A 0.5 % (0-0.5); Lymphocytes Absolute Auto 1.06 K/mm3 (0.9-3.2); Lymphocytes Percent Auto 10.1 % (18.3-44.2); Mean Corpuscular Hemoglobin 22.2 pg (26-34); Mean Corpuscular Volume 71.7 fl (80-100); Mean Platelet Volume 9.1 fl (7.4-10.4); Monocytes Absolute Auto 0.9 K/mm3 (0.1-0.6); Monocytes Percent Auto 8.9 % (2.6-8.5); Neutrophils Absolute Auto 8.4 K/mm3 (1.3-6.7); Neutrophils Percent Auto 79.6 % (45.5-73.1); Platelet Count Result 139 k/mm3 (150-375); Red Blood Count 6.43 M/mm3 (4.6-6.20); Red Cell Distribution Width 20.6 % (11.5-14.5); White Blood Count 10.5 K/mm3 (4.5-10.0)
[2021-12-01 04:37] LABS: Prothrombin Time 37.5 Seconds (11.1-14.7)
[2021-12-01 04:57] LABS: Lactic Acid Reflex 2.6 mmol/L (0.7-2.1)
[2021-12-01 05:14] LABS: Albumin Level 4.1 g/dL (3.5-5.1); Alkaline Phosphatase 85 U/L (38-126); Anion Gap 12 mmol/L (8-16); Bilirubin,Total 1.9 mg/dL (0.2-1.3); Blood Urea Nitrogen 79 mg/dL (9-20); Carbon Dioxide 27 mmol/L (22-30); Chloride 89 mmol/L (98-107); Estimated CRCL calculation 52 ml/min; Estimated Glomerular Filt Rate 41; Glucose 216 mg/dL (65-110); Magnesium 2.5 mg/dL (1.6-2.3); Phosphorus 4.1 mg/dL (2.5-4.5); Sodium 128 mmol/L (137-145)
[2021-12-01 05:28] LABS: Aspartate Amino Transferase 1278 U/L (17-59)
[2021-12-01 05:29] LABS: Alanine Aminotransferase 2033 U/L (4-50)
--- NOTE | 2021-12-01 06:12 | PC.NURSE ---
Received call from Nurse Rodriguez from [facility] to inquire about patients' current status. Informed the nurse that the pt. was stable bp pulse temperature was all wnl. Nurse stated that they anticipate having a be for the patient soon and that they would contact Jared at that time. Charge nurse and Dr. Mustafa informed of phone call.
[2021-12-01 07:24] LABS: Reflex Lactic Acid Yes or No Add Lactic
[2021-12-01] MEDS: ALBUTEROL SULFATE (*SP) AEROSOL 1 PUFF INHALATION ×2 (08:22→13:34)
[2021-12-01 08:26] LABS: Lactic Acid 2.5 mmol/L (0.7-2.1)
[2021-12-01] MEDS: INSULIN ASPART (*BKC) 100 UNITS/ML SUB-Q ×2 (08:29→17:05)
[2021-12-01] MEDS: FERROUS SULFATE 324 MG TABLET PO ×2 (08:29→17:06)
[2021-12-01] MEDS: BISACODYL 5 MG TABLET EC PO (08:30)
[2021-12-01] MEDS: APIXABAN 5 MG TABLET PO (08:30)
[2021-12-01] MEDS: SACUBITRIL/VALSARTAN 24-26 MG TABLET 1 TAB PO (08:31)
[2021-12-01] MEDS: FUROSEMIDE INJ 40 MG/4 ML VIAL IV PUSH ×2 (08:31→17:07)
[2021-12-01] MEDS: PANTOPRAZOLE 40 MG TABLET PO (09:32)
[2021-12-01] MEDS: DOPamine 400 MG/D5W 250 ML 400 MG/250 ML BAG 21.13 MG IV CONT (09:44)
[2021-12-01 09:48] LABS: Glucose Point of Care 240 mg/dl (65-105)
--- NOTE | 2021-12-01 10:12 | PM.PNCARD ---
Progress Note: A&P Additional Plan 61-year-old man as detailed in previous notes with ischemic disease ischemic cardiomyopathy and decompensated heart failure picture of low-level cardiogenic shock with renal insufficiency and picture of shock liver. He is hemodynamically doing better with improvement of all of these indices for the last 48 hours. Entresto has been resumed which will also be of help. I believe that the change that caused this decompensation is the loss of sinus rhythm and atrial flutter with the hemodynamic penalty of that. Hopefully he will be able to have this treated effectively with catheter ablation which of course is not available here at [place]. For the time being we will leave him on intravenous amiodarone. Anticipate transfer to the CCU at [place]. I spoke with the CCU attending last evening and they will accept him when a bed is available. Roberto Carlos Washington MD [facility] WITH [facility] Subjective Date/time seen: 12/01/21 10:12 Interval history: This is a pleasant 61-year-old man who sees Dr. Washington in the office because of coronary disease and a significant ischemic cardiomyopathy. He was hospitalized after being seen in my office yesterday by the nurse practitioner because of atrial flutter/RVR and hypotension. Date of service 11/24/2021: Low chest pain. Still short of breath. Feels like his blood sugars is low. Overall still feels poorly on amiodarone and dopamine Date of service 11/25/2021: Off of pressors but still short of breath. No chest pain. No significant edema. Date of service 09/25/2022: Patient feeling well this morning although at bed rest in the ICU. About 9:00 a.m. he converted to sinus rhythm on his IV amiodarone infusion. Date of service: Asymptomatic . COnverted back into A Flutter overnight but HR 90 s and no symptoms Date of service 09/27/2022: Patient is more short of breath today. States with minimal activity such as washing up P experiencing air hunger sitting up on the side of the bed at this time. Still in atrial flutter heart rate about 110. Has been receiving amiodarone but only daily instead of Q 12. Date of service 11/29/2021-resting comfortably in bed. Converted to sinus rhythm overnight IV amiodarone. Started on a dopamine due to low blood pressure. Breathing better this morning. Date of service 11/30/2021: Reverted back to atrial fibrillation this morning around 5:00 a.m.. Rate is mostly in the low 100s. He does feel more short of breath today. He is visibly dyspneic with conversation. Date of service 11/30/2021: Patient remains in flutter with fairly well-controlled heart rate today heart rate is mid 90s. Entresto resumed yesterday along with some furosemide. He clearly is in less distress and breathing more comfortably. Transaminases are decreasing. Waiting for transfer bed to [place] for hopefully he will be able to found be found to be a candidate for an a flutter ablation. Exam Const: General: comfortable and no acute distress Other: Pleasant gentleman seated in bed in the ICU. HENMT: Mouth: Yes moist mucous membranes Eyes: Sclera: sclerae normal and scleral abnormality Neck: Neck: supple Carotids: bruit Other: No obvious venous distention Resp: Effort & Inspection: normal respiratory effort and tachypneic Auscultation: crackles Other: Patient has bibasilar rales today. Cardio: Rhythm: abnormal rhythm irregularly irregular GI: Auscultation: normal bowel sounds Skin: General skin exam: normal color Neuro: Cranial nerves: Yes Normal hearing present Cognition (Neuro): normal cognition Extrem: Other: Trivial pretibial edema Objective Data Vital Signs Vital Signs: Vital Signs - 24 hr 11/30/21 12:00 11/30/21 14:00 11/30/21 14:44 Temperature Pulse Rate 112 H 113 H 113 H Respiratory Rate 27 H 28 H Blood Pressure 114/94 H Pulse Oximetry 94 11/30/21 14:45 11/30/21 16:00 11/30/21 18:00 Temperature Pulse Rate 112 H 110 H 104 H
--- NOTE | 2021-12-01 11:40 | WPDINTPN ---
Progress Note: A&P Assessment and Plan (1) Cardiogenic shock: Code(s): R57.0 - Cardiogenic shock Status: Acute Assessment and Plan: Patient has severe ischemic cardiomyopathy with LVEF of 30% with severe hypokinesia of apex anterior septal and anterior wall, RV is also dilated, by pulmonary hypertension and mild aortic stenosis. -His congestive heart failure got decompensated likely secondary to AFib with RVR. - 11/26: converted to normal sinus rhythm and is On PO Amiodarone -11/28/2021: Patient was in AFib RVR and was started on amiodarone infusion. Patient was hypotensive, lactic acid was 8.5, LFTs are elevated, creatinine increased. Patient was restarted on dopamine and Levophed stamp pad finisher on 11/29/2021. Patient was given IV fluids cautiously along with albumin Hespan. -repeat lactic acid is 2.5 this morning (8.5 on 11/29) -patient also has shock liver, LFTs improved -continue dopamine -off Levophed -urine output improving, creatinine improved -continue to monitor (2) Atrial fibrillation with RVR: Code(s): I48.91 - Unspecified atrial fibrillation Status: Acute Assessment and Plan: On 11/26/2021: Patient converted back to sinus rhythm, discussed with cardiology, patient no longer requires cardioversion -amiodarone infusion been turned off as patient is being started on p.o. amiodarone -11/27/2021 patient went back AFib, but rate controlled -11/28: A.fib RVR, started pt on low dose coreg, and received Lasix per Cardiology, which were held -11/29: Patient converted to sinus rhythm on amiodarone infusion with patient was hypotensive. -11/29 discussed with Cardiology, this is decompensated ischemic heart failure secondary to AFib RVR. Such patients do not tolerate being in AFib RVR. Recommends transferring to [facility] for advanced heart failure therapies, if he does not improve quite 11/30 Patient and his stated that he has had ablation for his atrial fibrillation in the past at [facility], and his retail salesworker was Dr. Vaughn Went back back into a flutter/AFib with RVR overnight ([id number] & 12/01). Patient was given in additional amiodarone bolus slowed his rate down -cardiology: [place] accepted the patient for possible ablation for AFib or other treatments (3) Cough: Code(s): R05.9 - Cough, unspecified Status: Acute Assessment and Plan: Improvement with p.r.n. Robitussin DM and Tessalon Perles for symptomatic relief this is likely secondary to pulmonary edema. his WBCs normal, he is afebrile and his procalcitonin level was normal (4) Acute kidney injury: Code(s): N17.9 - Acute kidney failure, unspecified Status: Acute Assessment and Plan: likely secondary to hypoperfusion from decompensated heart failure and shock Creatinine was 1.9 this morning on 11/26 -11/27/2021: Creatinine 1.4 with improved urine output -11/29/2021: Creatinine is 2.4 -12/01: Creatinine down to 1.70 -continue dopamine dopamine -renal ultrasound was unremarkable -appreciate Nephrology evaluation recommendation - continue monitor urine output electrolytes (5) Coronary artery disease involving autologous artery coronary bypass graft: Code(s): I25.810 - Atherosclerosis of coronary artery bypass graft(s) without angina pectoris Status: Acute Assessment and Plan: Continue to hold statin and fenofibrate, Coreg -cardiology started patient on Entresto and Lasix -they aware that patient is on dopamine infusion (6) Systolic heart failure, ACC/AHA stage D: Code(s): I50.20 - Unspecified systolic (congestive) heart failure Status: Acute Assessment and Plan: Echocardiogram 11/15/2021: EF of 30-35% with severe hypokinesis of the apex, anterolateral and anterior burnham. There is no thrombus visualized in the left ventricle echogenic structure located near the RV apex most likely calcified moderator band. RV chamber is moderat
--- NOTE | 2021-12-01 12:08 | PM.IMPN ---
Progress Note: A&P Assessment and Plan (1) Cardiogenic shock: Code(s): R57.0 - Cardiogenic shock Status: Acute Assessment and Plan: Patient has severe ischemic cardiomyopathy with LVEF of 30% with severe hypokinesia of apex anterior septal and anterior wall, RV is also dilated, by pulmonary hypertension and mild aortic stenosis. -His congestive heart failure got decompensated likely secondary to AFib with RVR. - 11/26: converted to normal sinus rhythm and is On PO Amiodarone -11/28/2021: Patient was in AFib RVR and was started on amiodarone infusion. Patient was hypotensive, lactic acid was 8.5, LFTs are elevated, creatinine increased. Patient was restarted on dopamine and Levophed outside plant field engineer on 11/29/2021. Patient was given IV fluids cautiously along with albumin Hespan. -repeat lactic acid is 2.5 this morning (8.5 on 11/29) -patient also has shock liver, LFTs improved -continue dopamine -off Levophed -urine output improving, creatinine improved -continue to monitor -Patient accepted for transfer for advanced heart failure therapy. (2) Atrial fibrillation with RVR: Code(s): I48.91 - Unspecified atrial fibrillation Status: Acute Assessment and Plan: On 11/26/2021: Patient converted back to sinus rhythm, discussed with cardiology, patient no longer requires cardioversion -amiodarone infusion been turned off as patient is being started on p.o. amiodarone -11/27/2021 patient went back AFib, but rate controlled -11/28: A.fib RVR, started pt on low dose coreg, and received Lasix per Cardiology, which were held -11/29: Patient converted to sinus rhythm on amiodarone infusion with patient was hypotensive. -11/29 discussed with Cardiology, this is decompensated ischemic heart failure secondary to AFib RVR. Such patients do not tolerate being in AFib RVR. Recommends transferring to [facility] for advanced heart failure therapies, if he does not improve quite 11/30 Patient and his stated that he has had ablation for his atrial fibrillation in the past at [facility], and his utilities estimator and drafter was Dr. Vaughn Went back back into a flutter/AFib with RVR overnight ([id number]/25 & 12/01). Patient was given in additional amiodarone bolus slowed his rate down -cardiology: [place] accepted the patient for possible ablation for AFib or other treatments (3) Cough: Code(s): R05.9 - Cough, unspecified Status: Acute Assessment and Plan: Improvement with p.r.n. Robitussin DM and Tessalon Perles for symptomatic relief this is likely secondary to pulmonary edema. his WBCs normal, he is afebrile and his procalcitonin level was normal (4) Acute kidney injury: Code(s): N17.9 - Acute kidney failure, unspecified Status: Acute Assessment and Plan: likely secondary to hypoperfusion from decompensated heart failure and shock Creatinine was 1.9 this morning on 11/26 -11/27/2021: Creatinine 1.4 with improved urine output -11/29/2021: Creatinine is 2.4 -12/01: Creatinine down to 1.70 -continue dopamine dopamine -renal ultrasound was unremarkable -appreciate Nephrology evaluation recommendation - continue monitor urine output electrolytes (5) Coronary artery disease involving autologous artery coronary bypass graft: Code(s): I25.810 - Atherosclerosis of coronary artery bypass graft(s) without angina pectoris Status: Acute Assessment and Plan: Continue to hold statin and fenofibrate, Coreg -cardiology started patient on Entresto and Lasix -they aware that patient is on dopamine infusion (6) Systolic heart failure, ACC/AHA stage D: Code(s): I50.20 - Unspecified systolic (congestive) heart failure Status: Acute Assessment and Plan: Echocardiogram 11/15/2021: EF of 30-35% with severe hypokinesis of the apex, anterolateral and anterior burnham. There is no thrombus visualized in the left ventricle echogenic structure located near the RV a
--- NOTE | 2021-12-01 12:10 | PM.PNNEP ---
Progress Note: A&P Assessment and Plan (1) Acute kidney injury: Code(s): N17.9 - Acute kidney failure, unspecified Status: Acute Assessment and Plan: multifactorial etiology: hemodynamic instability/hypotension afib/aflutter contrast exposure [on 11/22 (from CT PE protocol) and on 11/23 (from CT C/A/P)] concurrent use of Entresto pre-renal factors(?) evaluation to date: renal ultrasound unremarkable urine electrolytes with prerenal azotemia (due to depressed EF most likely) urine eosinophils negative CPK normal creatinine relatively stable if not improving continue attempts at optimizing/maintaining hemodynamics follow trend of repeat labs and UOP (2) Cardiogenic shock: Code(s): R57.0 - Cardiogenic shock Status: Acute Assessment and Plan: remains on dopamine gtt complicated by severe ischemic cardiomyopathy, pulmonary HTN, and mild aortic stenosis back on entresto and diuretics Cardiology following (3) Atrial fibrillation with RVR: Code(s): I48.91 - Unspecified atrial fibrillation Status: Acute Assessment and Plan: suspect culprit for decompensated heart failure rate control strategy on anticoagulation Cardiology following -- planning on transfer to [facility] to consider other interventions (i.e. ablation) that are unable here at [place] (4) Type 2 diabetes mellitus: Code(s): E11.9 - Type 2 diabetes mellitus without complications Status: Chronic Assessment and Plan: follow accuchecks on Lantus and SSI Will continue to follow Subjective Date/time seen: 12/01/21 12:10 Issues overnight with aflutter/SVT with pulse in the 130 - 140 range associated with worsening shortness of breath; received amiodarone bolus with improvement in heart rate; appears to be feeling better at this time; noted improvement in renal function with reasonable urine output; restarted on diuretics and entresto yesterday; remains on dopamine and amiodarone gtt; awaiting potential transfer to [place] for further managment of his cardiac issues. Exam Narrative: General: WD/WN male in NAD Heart: normal S1 and S2; IRRR Lungs: diminished at bases Abdomen: soft, nontender, nondistended, positive bowel sounds Extremities: no cyanosis or clubbing; trace edema Skin: warm and intact Objective Data Vital Signs Vital Signs: Vital Signs Temp Pulse Resp BP Pulse Ox 12/01/21 12:00 90 12/01/21 10:00 98 02/26/22 08:22 94 12/01/21 08:00 97 16 101/86 93 12/01/21 06:00 98 12/01/21 04:16 89 12/01/21 03:15 36.9 C 83 24 H 100/72 93 12/01/21 02:00 92 12/01/21 00:00 36.8 C 83 24 H 108/81 93 11/30/21 22:00 85 11/30/21 21:01 85 30 H 11/30/21 20:00 36.7 C 147 H 29 H 100/83 94 11/30/21 19:56 147 H 113/87 11/30/21 18:00 104 H Intake/Output Intake/Output: Intake & Output 11/28/21 11/29/21 11/30/21 12/01/21 23:59 23:59 23:59 23:59 Intake Total 1040 2805 1290 850 Output Total 212 652 3842 0 Balance 240 2260 165 850 Meds/Results Medications: Active Medications Generic Name Dose Route Start Last Admin Trade Name Freq PRN Reason Stop Dose Admin Acetaminophen 650 mg 11/23/21 22:41 11/23/21 22:52 Acetaminophen 325 Mg Tablet PO 650 mg Q6H PRN Administration Mild Pain (1-3) or Fever Al Hydrox/Mg Hydrox/Simethicone 30 ml 11/25/21 07:32 11/25/21 08:56 Mag Hydrox/Al Hydrox/Simeth 30 Ml Udc PO 30 ml Q6H PRN Administration Indigestion Albuterol 1 puff 11/23/21 02:00 12/01/21 13:34 Albuterol Sulfate (*Sp) Aerosol 1 Puff INHALATION 1 puff Q6HRT RITA Administration Apixaban 5 mg 11/30/21 21:00 12/01/21 08:30 Apixaban 5 Mg Tablet PO 5 mg Q12HR RITA Administration Benzonatate 200 mg 11/25/21 07:32 11/28/21 21:13 Benzonatate 100 Mg Capsule PO 200 mg TID PRN Administration cough Bisacod
--- NOTE | 2021-12-01 12:10 | P.PNNP_ITS ---
Progress Note: A&P Assessment and Plan (1) Acute kidney injury: Code(s): N17.9 - Acute kidney failure, unspecified Status: Acute Assessment and Plan: * multifactorial etiology: * hemodynamic instability/hypotension * afib/aflutter * contrast exposure [on 11/22 (from CT PE protocol) and on 11/23 (from CT C/A/P)] * concurrent use of Entresto * pre-renal factors(?) * evaluation to date: * renal ultrasound unremarkable * urine electrolytes with prerenal azotemia (due to depressed EF most likely) * urine eosinophils negative * CPK normal * creatinine relatively stable if not improving * continue attempts at optimizing/maintaining hemodynamics * follow trend of repeat labs and UOP (2) Cardiogenic shock: Code(s): R57.0 - Cardiogenic shock Status: Acute Assessment and Plan: * remains on dopamine gtt * complicated by severe ischemic cardiomyopathy, pulmonary HTN, and mild aortic stenosis * back on entresto and diuretics * Cardiology following (3) Atrial fibrillation with RVR: Code(s): I48.91 - Unspecified atrial fibrillation Status: Acute Assessment and Plan: * suspect culprit for decompensated heart failure * rate control strategy * on anticoagulation * Cardiology following -- planning on transfer to [facility] to consider other interventions (i.e. ablation) that are unable here at [place] (4) Type 2 diabetes mellitus: Code(s): E11.9 - Type 2 diabetes mellitus without complications Status: Chronic Assessment and Plan: * follow accuchecks * on Lantus and SSI Will continue to follow Subjective Date/time seen: 12/01/21 12:10 Issues overnight with aflutter/SVT with pulse in the 130 - 140 range associated with worsening shortness of breath; received amiodarone bolus with improvement in heart rate; appears to be feeling better at this time; noted improvement in renal function with reasonable urine output; restarted on diuretics and entresto yesterday; remains on dopamine and amiodarone gtt; awaiting potential transfer to [place] for further managment of his cardiac issues. Exam Narrative: General: WD/WN male in NAD Heart: normal S1 and S2; IRRR Lungs: diminished at bases Abdomen: soft, nontender, nondistended, positive bowel sounds Extremities: no cyanosis or clubbing; trace edema Skin: warm and intact Objective Data Vital Signs Vital Signs: Vital Signs Temp Pulse Resp BP Pulse Ox 12/01/21 12:00 90 12/01/21 10:00 98 12/01/21 08:22 94 12/01/21 08:00 97 16 101/86 93 12/01/21 06:00 98 12/01/21 04:16 89 12/01/21 03:15 36.9 C 83 24 H 100/72 93 12/01/21 02:00 92 12/01/21 00:00 36.8 C 83 24 H 108/81 93 11/30/21 22:00 85 11/30/21 21:01 85 30 H 11/30/21 20:00 36.7 C 147 H 29 H 100/83 94 11/30/21 19:56 147 H 113/87 11/30/21 18:00 104 H Intake/Output Intake/Output: Intake & Output 11/28/21 11/29/21 11/30/21 12/01/21 23:59 23:59 23:59 23:59 Intake Total 1040 2805 1290 850 Output Total 555 447 8018 0 Balance 240 2260 165 850 Meds/Results Medications: Active Medications Generic Name Dose Route Start Las
[2021-12-01 12:22] LABS: Glucose Point of Care 195 mg/dl (65-105)
--- NOTE | 2021-12-01 14:58 | WPDGIPROGNO ---
Progress Note: A&P Assessment and Plan (1) Elevated liver function tests: Code(s): R79.89 - Other specified abnormal findings of blood chemistry Status: Acute Assessment and Plan: this is consistent with shock liver liver enzymes still elevated but coming down after medical treatment, main culprit is cardiogenic shock with decompensated heart failure (2) Cardiogenic shock: Code(s): R57.0 - Cardiogenic shock Status: Acute Assessment and Plan: cardiology and icu on board bed transfer requested to [facility] (3) Systolic heart failure, ACC/AHA stage D: Code(s): I50.20 - Unspecified systolic (congestive) heart failure Status: Acute Assessment and Plan: on medical management by cardiology (4) Atrial fibrillation: Qualifiers: Atrial fibrillation type: unspecified Qualified Code(s): I48.91 - Unspecified atrial fibrillation Code(s): I48.91 - Unspecified atrial fibrillation Status: Acute (5) Acute kidney injury: Code(s): N17.9 - Acute kidney failure, unspecified Status: Acute Assessment and Plan: creatinine 1.7 Subjective Date/time seen: 12/01/21 14:58 Interval history: no major changes, still with FOURNIER and poor appetite. Review of Systems Review of Systems: All systems reviewed & are unremarkable except as noted in HPI and below Exam Const: General: comfortable and no acute distress HENMT: Mouth: Yes moist mucous membranes Eyes: Sclera: sclerae normal Neck: Neck: supple Resp: Effort & Inspection: normal respiratory effort and tachypneic Auscultation: crackles Other: Patient has bibasilar rales today. Cardio: Rhythm: abnormal rhythm irregularly irregular GI: GI Palp: Yes Soft to palpation and No Tenderness to palpation present (GI) Auscultation: normal bowel sounds Skin: General skin exam: normal color Neuro: Cranial nerves: Yes Normal hearing present Cognition (Neuro): normal cognition Extrem: General: normal to inspection Other: Trivial pretibial edema Psych: Mental Status: mental status grossly normal Objective Data Vital Signs Vital Signs: Vital Signs - 24 hr 11/30/21 16:00 11/30/21 18:00 11/30/21 19:56 Temperature Pulse Rate 110 H 104 H 147 H Respiratory Rate 26 H Blood Pressure 115/81 113/87 Pulse Oximetry 94 11/30/21 20:00 11/30/21 21:01 11/30/21 22:00 Temperature 98.0 F Pulse Rate 147 H 85 85 Respiratory Rate 29 H 30 H Blood Pressure 100/83 Pulse Oximetry 94 12/01/21 00:00 12/01/21 02:00 12/01/21 03:15 Temperature 98.2 F 98.5 F Pulse Rate 83 92 83 Respiratory Rate 24 H 24 H Blood Pressure 108/81 100/72 Pulse Oximetry 93 93 12/01/21 04:16 12/01/21 06:00 12/01/21 08:00 Temperature Pulse Rate 89 98 97 Respiratory Rate 16 Blood Pressure 101/86 Pulse Oximetry 93 12/01/21 08:22 12/01/21 10:00 12/01/21 12:00 Temperature Pulse Rate 98 90 Respiratory Rate Blood Pressure Pulse Oximetry 94 12/01/21 14:00 Temperature Pulse Rate 104 H Respiratory Rate Blood Pressure Pulse Oximetry Intake/Output Intake/Output: Intake & Output 11/28/21 11/29/21 11/30/21 12/01/21 23:59 23:59 23:59 23:59 Intake Total 1040 2805 1290 650 Output Total 175 034 8694 0 Balance 240 2260 165 650 Meds/Results Medications: Active Medications Generic Name Dose Route Start Last Admin Trade Name Freq PRN Reason Stop Dose Admin Acetaminophen 650 mg 11/23/21 22:41 11/23/21 22:52 Acetaminophen 325 Mg Tablet PO 650 mg Q6H PRN Administration Mild Pain (1-3) or Fever Al Hydrox/Mg Hydrox/Simethicone 30 ml 11/25/21 07:32 11/25/21 08:56 Mag Hydrox/Al Hydrox/Simeth 30 Ml Udc PO 30 ml Q6H PRN Administration Indigestion Albuterol 1 puff 11/23/21 02:00 12/01/21 13:34 Albuterol Sulfate (*Sp) Aerosol 1 Puff INHALATION 1 puff Q6HRT RITA Administration Apixaban 5 mg 11/30/21 21:00 12/01/21 08:30 Ap
[2021-12-01 17:17] LABS: Glucose Point of Care 206 mg/dl (65-105)
--- NOTE | 2021-12-01 17:34 | PC.NURSE ---
Report called to Lilly Capps RN at [facility] for report at approximately 16:35 pm. Patient scheduled for transfer to [facility] at 17:35. Afternoon meds administered. Patient in stable condition. Current vitals are as follows: Temp 97.5 HR 99 O2 94 RR- 20 BP 91/74 MAP 82. Will continue to monitor until transfer.
--- NOTE | 2021-12-12 21:55 | PM.TDS ---
Transfer Discharge Sum: Prov Provider Date of admission: 11/22/21 14:32 Primary care physician: Suresh Yancey, Admitting clinician: Teofilo Garnett MD Consults: 11/23/21 Consult to Physician Routine Comment: Consulting Provider: Jolynn Solorzano charge poster/MD group to consult: Cardiology Reason for consultation: SOB Has provider been notified: Yes 11/26/21 09:58 Consult to Physician Routine Comment: Called and notified him of consult Consulting Provider: Concha Christianson charge poster/MD group to consult: Nephrology Reason for consultation: Acute kidney injury Has provider been notified: Yes 11/27/21 07:55 Consult to Physician Routine Comment: Called and notified him of consult Consulting Provider: Amador Ugarte charge poster/MD group to consult: GI Reason for consultation: Elevated LFTs Has provider been notified: Yes 11/29/21 Consult to Physician Routine Comment: Consulting Provider: Saurabh North Reason for consultation: Cardiogenic shock Has provider been notified: Yes DS: Admitting Diagnosis Discharge Date 12/01/21 Admitting Diagnosis (1) Systolic heart failure, ACC/AHA stage D: Code(s): I50.20 - Unspecified systolic (congestive) heart failure Status: Acute Assessment and Plan: Admitted to [facility] Bed rest Vitals as per unit protocol Continuous telemetry Strict intake and output daily Diuresing Fluid restriction to 1500 cc daily Echocardiogram in a.m. 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: Code(s): I25.810 - Atherosclerosis of coronary artery bypass graft(s) without angina pectoris Status: Acute Assessment and Plan: Patient had bypass back in 2007 due to a LAD disease No chest pain presently Continue home meds (3) Type 2 diabetes mellitus: Code(s): E11.9 - Type 2 diabetes mellitus without complications Status: Acute Assessment and Plan: Holding metformin Accu-Cheks AC and HS Continue Lantus Insulin sliding scale as needed Hold glimepiride (4) Right upper quadrant pain: Code(s): R10.11 - Right upper quadrant pain Status: Acute Assessment and Plan: AST alk phos and total bili within normal limits Continue to monitor DS: Discharge Diagnosis Discharge Diagnosis (1) Cardiogenic shock: Code(s): R57.0 - Cardiogenic shock Status: Acute Assessment and Plan: Patient has severe ischemic cardiomyopathy with LVEF of 30% with severe hypokinesia of apex anterior septal and anterior wall, RV is also dilated, by pulmonary hypertension and mild aortic stenosis. -His congestive heart failure got decompensated likely secondary to AFib with RVR. - 11/26: converted to normal sinus rhythm and is On PO Amiodarone -11/28/2021: Patient was in AFib RVR and was started on amiodarone infusion. Patient was hypotensive, lactic acid was 8.5, LFTs are elevated, creatinine increased. 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 Patient was given IV fluids cautiously along with albumin Hespan. -repeat lactic acid is 2.5 this morning (8.5 on 11/29) -patient also has shock liver, LFTs improved -continue dopamine -off Levophed -urine output improving, creatinine improved -continue to monitor -Patient accepted for transfer for advanced heart failure therapy. (2) Atrial fibrillation with RVR: Code(s): I48.91 - Unspecified atrial fibrillation Status: Acute Assessment and Plan: On 11/26/2021: Patient converted back to sinus rhythm, discussed with cardiology, patient no longer requires cardioversion -amiodarone infusion been turned off as patient is being started on p.o. amiodarone -11/27/2021 patient went back AFib, but rate controlled -11/28: A.fib RVR, started pt on low dose coreg, and received Lasix per Cardiology, which were held -11/29: Patient
== END 2021-12-01 19:58 | disposition short-term general hospital (02) | DRG 308 ==
LOC: ANHED 14:38 → ANHCPC 16:28 → ANHICU 11-24 22:26 → ANHCPC 12-03 12:25 → ANHICU 12-03 12:25
PROVIDERS: Internal Medicine; Internal Medicine Gastroenterology; Physician Assistant; Admitting Provider Internal Medicine; Emergency Provider Emergency Medicine; PCP Family Medicine; Visit Provider Internal Medicine
DX: I48.92 Unspecified atrial flutter (principal); I50.23 Acute on chronic systolic (congestive) heart failure; R57.0 Cardiogenic shock; K83.1 Obstruction of bile duct; I25.810 Atherosclerosis of coronary artery bypass graft(s) without angina pectoris; N17.9 Acute kidney failure, unspecified; C85.90 Non-Hodgkin lymphoma, unspecified, unspecified site; I48.91 Unspecified atrial fibrillation; N14.1 Nephropathy induced by other drugs, medicaments and biological substances; T44.5X5A Adverse effect of predominantly beta-adrenoreceptor agonists, initial encounter; T50.8X5A Adverse effect of diagnostic agents, initial encounter; Z96.89 Presence of other specified functional implants; I27.20 Pulmonary hypertension, unspecified; I35.0 Nonrheumatic aortic (valve) stenosis; I25.5 Ischemic cardiomyopathy; R71.8 Other abnormality of red blood cells; E11.9 Type 2 diabetes mellitus without complications; E78.5 Hyperlipidemia, unspecified; R10.11 Right upper quadrant pain; R00.0 Tachycardia, unspecified; R79.89 Other specified abnormal findings of blood chemistry; R05.9 Cough, unspecified; Z20.822 Contact with and (suspected) exposure to COVID-19; Z79.01 Long term (current) use of anticoagulants; Z79.4 Long term (current) use of insulin; Z79.84 Long term (current) use of oral hypoglycemic drugs; Z86.74 Personal history of sudden cardiac arrest; Z87.891 Personal history of nicotine dependence; Z95.810 Presence of automatic (implantable) cardiac defibrillator
CPT/HCPCS: 36415; 36569; 71045; 71260; 71275; 74019; 74177; 76705; 76775; 80048; 80053; 80074; 81001; 82140; 82436; 82550; 82570; 82728; 82948; 83036; 83540; 83550; 83605; 83690; 83735; 83880; 84100; 84133; 84145; 84300; 84443; 84484; 85025; 85027; 85610; 85730; 85999; 87040; 87070; 87086; 87205; 93005; 94640; 96361; 96374; 96375; 97110; 97116; 97161; 97165; 97530; 99285; A9270; C1751; C8929; C9803; J0282; J0610; J1265; J1815; J1940; J7040; P9047; Q9957; Q9967; U0003; U0005